=== PATIENT | female | born 1945 | race Caucasian/White ===

== ENCOUNTER 2022-04-04 20:01 | Observation (INO) | payer OTHER, SELFPAY ==
[2022-04-04 20:16] VITALS: BP 182/95; PULSE 90; RESP 32; TEMP 37.8; O2SAT 92; BMI 74.7
--- NOTE | 2022-04-04 20:23 | ED_ITS ---
HPI - General Adult General Time Seen by Provider: 20:23 <Zoe Menard MD - Last Filed: 04/05/22 00:05> Date Seen: 04/04/22 <Zoe Menard MD - Last Filed: 04/05/22 00:05> Chief complaint: Shortness of Breath/Dyspnea <Zoe Menard MD - Last Filed: 04/05/22 00:05> Stated complaint: CHILLS/SHAKES,TROUBLE BREATHING <Zoe Menard MD - Last Filed: 04/05/22 00:05> Time Seen by Provider: 04/04/22 20:02 <Zoe Menard MD - Last Filed: 04/05/22 00:05> Source: patient and RN notes reviewed <Zoe Menard MD - Last Filed: 04/05/22 00:05> Mode of arrival: ambulatory <Zoe Menard MD - Last Filed: 04/05/22 00:05> Limitations: no limitations <Zoe Menard MD - Last Filed: 04/05/22 00:05> History of Present Illness HPI narrative: Pamela is a 76-year-old female coming in with shortness of breath chills and shaking tonight. She was placed on Macrobid on the for UTI in clinic. She has been taking it. She just had very slight dysuria at times. That is gone away. She feels like her waist band is tight and maybe some abdominal pain. She was hungry for dinner but then when it was made she had no appetite for it. There is no nausea or vomiting. No diarrhea. She is noting no urinary symptoms. She is feeling short of breath but no chest pain, no cough or cold symptoms. She is wondering about having some oxygen. She has never been a smoker, denies any prior lung history. She is not having any chest pain or palpitations. Denies any headache. No sore throat, no nasal congestion. She is not vaccinated for COVID, has been going to the grocery store. O2 sats are 93% on room air when I am in with her. Given she has no lung history I think it is fine to have her try 1 L nasal cannula oxygen and see if it helps or symptomatically. Looking in our prior records, see she had COVID in June of 2020. She has seen ENT for ceruminosis. I really do not find anything further in regards to her in our records. <Zoe Menard MD - Last Filed: 04/05/22 00:05> Related Data Home medications: Home Medications Medication Instructions Recorded Confirmed carvedilol 6.25 mg tablet mg 04/04/22 famotidine 20 mg tablet mg 04/04/22 lorazepam 0.5 mg tablet mg 04/04/22 losartan 25 mg tablet mg 04/04/22 nitrofurantoin 04/04/22 monohydrate/macrocrystals 100 mg capsule <Zoe Menard MD - Last Filed: 04/05/22 00:05> Allergies/adverse reactions: Allergies Allergy/AdvReac Type Severity Reaction Status Date / Time No Known Drug Allergies Allergy Verified 04/04/22 20:20 <Zoe Menard MD - Last Filed: 04/05/22 00:05> Review of Systems Status of ROS: Reports: 10 or more systems reviewed and unremarkable except as noted in History and below <Zoe Menard MD - Last Filed: 04/05/22 00:05> [facility] Social History: Social History Smoking Status: Never smoker How often do you have a drink containing alcohol: never AUDIT-C Alcohol total score: 0 Non-prescribed substance use: denies use <Zoe Menard MD - Last Filed: 04/05/22 00:05> Exam Const: Vital Signs, click to edit/add: Vital Signs - 24 hr 04/04/22 20:16 04/04/22 21:03 04/05/22 00:30 Temperature 100.0 F H 98.0 F Pulse Rate [Left P ulse Oximeter] 90 77 Respiratory Rate 32 H 16 Blood Pressure [Ri ght Upper Arm] 182/95 H 153/77 H Pulse Oximetry 92 94 93 Oxygen Delivery Me thod Room Air Nasal Cannula Room Air <Zoe Menard MD - Last Filed: 04/05/22 00:05> Vital Signs, click to edit/add: Vital Signs - 24 hr 04/04/22 20:16 04/04/22 21:03 04/05/22 00:30 Temperature 100.0 F H 98.0 F Pulse Rate [Left P ulse Oximeter] 90 77 Respiratory Rate 32 H 16 Blood Pressure [Ri ght Upper Arm] 182/95 H 153/77 H Pulse Oximetry 92 94 93 Oxygen Delivery Me thod Room Air Nasal Cannula Room Air <Mikie Cardona MD - Last Filed: 04/05/22 04:30> Documenting provider has reviewed patient's vital signs: yes <Zoe Menard MD - Last Filed: 04/05/22 00:05> Common normals: no apparent distress, oriented x3, no limitations, healthy appearing, alert and well nourished <Zoe Menard MD - Last Filed: 04/05/22 00:05> General appearance: cooperative, comfortable and well kempt <Zoe Menard MD - Last Filed: 04/05/22 00:05> HENMT: Common normals: normocephalic, head/scalp atraumatic, external nose normal, nasal mucous membranes and turbinates normal, moist oral mucous membranes and oropharynx normal <Zoe Menard MD - Last Filed: 04/05/22 00:05> Head and scalp: normocephalic and atraumatic <Zoe Menard MD - Last Filed: 04/05/22 00:05> Nose: external nose normal and nasal mucous membranes and turbinates normal <Zoe Menard MD - Last Filed: 04/05/22 00:05> Eye: Common normals: PERRL, EOMs intact bilaterally, conjunctivae normal and no scleral icterus <Zoe Menard MD - Last Filed: 04/05/22 00:05> Conjunctiva: conjunctiva(e) normal <Zoe Menard MD - Last Filed: 04/05/22 00:05> Pupil: PERRL <Zoe Menard MD - Last Filed: 04/05/22 00:05> Neck & C-Spine: Common normals: full ROM, no lymphadenopathy, supple, no meningeal signs, no JVD and thyroid normal <Zoe Menard MD - Last Filed: 04/05/22 00:05> Thyroid: thyroid normal <Zoe Menard MD - Last Filed: 04/05/22 00:05> Resp: Common normals: normal respiratory effort, no retractions, no use of accessory muscles and clear to auscultation bilaterally <oZe Shaw MD - Last Filed: 04/05/22 00:05> Auscultation: clear to auscultation bilaterally <Zoe Menard MD - Last Filed: 04/05/22 00:05> Cardio: Common normals: no JVD, regular rate, regular rhythm, S1 normal heart sound, S2 normal heart sound, no gallops, no clicks and no murmurs <Zoe Menard MD - Last Filed: 04/05/22 00:05> Rate: regular rate <Zoe Menard MD - Last Filed: 04/05/22 00:05> Rhythm: regular rhythm <Zoe Menard MD - Last Filed: 04/05/22 00:05> Heart sounds: S1 normal and S2 normal <Zoe Menard MD - Last Filed: 04/05/22 00:05> GI: Common normals: Normal to inspection, nondistended, normoactive bowel sounds present, soft to palpation, non-tender (I have palpated through her abdomen many times, really she has no tendernes), no hepatosplenomegaly, no masses and no bruits <Zoe Menard MD - Last Filed: 04/05/22 00:05> Palpation: soft and no hepatosplenomegaly <Zoe Menard MD - Last Filed: 04/05/22 00:05> Extremity: Common normals: normal to inspection, full ROM, normal capillary refill, no joint enlargement, no clubbing, cyanosis or edema, no calf tenderness and no pedal edema <Zoe Menard MD - Last Filed: 04/05/22 00:05> Neuro: Common normals: oriented x3, CN's II-XII intact bilaterally, moves all extremities, no focal motor deficits and no sensory deficits noted <Zoe Menard MD - Last Filed: 04/05/22 00:05> Sensorium/orientation: alert <Zoe Menard MD - Last Filed: 04/05/22 00:05> Meningeal signs: no meningeal signs <Zoe Menard MD - Last Filed: 04/05/22 00:05> Psych: Appearance: well kempt <Zoe Menard MD - Last Filed: 04/05/22 00:05> Course Course Hospital Course: Her dyspnea could be from respiratory illness, secondary to another infectious etiology happening. She really has no abdominal pain on palpation. Will have her on pulse oximetry, cardiac monitoring. Do a full complement of labs. Will certainly be checking her for COVID. We have also we collected urine on her and I will order urine culture on this as well. It is possible that her UTI is incompletely treated and has become bacteremic. Her blood pressure would not support a diagnosis of sepsis at this point. Will watch her closely and guide therapy accordingly. I am going to give her some acetaminophen for her temperature. <Zoe Menard MD - Last Filed: 04/05/22 00:05> Reevaluation(s) Reevaluation #1: It took over 90 minutes for patient's labs to be drawn. Thus, quite a bit of delay in getting results back. Her white count is elevated. Her EKG shows left bundle branch block but she states she knows that she has this. She had breast cancer and had complications with chemotherapy. She states something happened with her heart which I presume is cardiomyopathy. Her design printing machine set up operator stage she never had congestive heart failure but it was a pump problem. It is improved now per her report. We reviewed her chest x-ray does look normal. Her D-dimer is just mildly elevated but with the symptom of shortness of breath I do feel it is prudent that we proceed with chest CT PE protocol. Given that she has a fever, recent UTI and is experiencing complaint of abdominal pain but nontender on examination, am going to proceed with abdomen and pelvis. Patient really does want to try to go home. We are going to need to see what her other labs are showing such as a procalcitonin and troponin. <Zoe Menard MD - Last Filed: 04/05/22 00:05> Time: 23:22 <Zoe Menard MD - Last Filed: 04/05/22 00:05> Reevaluation #2: Reviewed with patient that her troponin is just very mildly elevated. It is at 0.06. I have no baseline for her. She is going to need a repeat 3 hour. We will see what the chest CT PE protocol on the abdomen pelvis are showing os. She has been drinking here, blood pressures have actually been elevated and thus have not ordered IV fluids for her. she still states that she wants to go home, says that she has a design printing machine set up operator that she had doors and follow up outpatient. I have reviewed with her that if her heart enzyme is elevated, I can guarantee her design printing machine set up operator will want her to be further evaluated and likely inpatient. Her design printing machine set up operator is through [facility] Nunez and her name is Dr. Siddiqui. <Zoe Menard MD - Last Filed: 04/05/22 00:05> Time: 23:30 <Zoe Menard MD - Last Filed: 04/05/22 00:05> Time: 00:06 <Mikie Cardona MD - Last Filed: 04/05/22 04:30> Additional Reevaluation(s): Patient was signed out to Dr. Brendan CONNOR, please see Dr. Delilah CONNOR for HPI and physical exam. At this time awaiting on urinalysis results, second troponin and imaging results and then doing final disposition. 1:30 AM: patient was updated on her imaging results, per Dr. Pritchett, preliminary read showed CT chest no acute cardiopulmonary process, CT abdomen pelvis showed no acute intra-abdominal process, 2nd troponin was mildly elevated 0.11, patient remains asymptomatic, she will be given 1 g ceftriaxone for her findings and urinalysis. Urine culture pending. Plan would be to admit for observation and monitoring serial troponins. Plan to call hospitalist on-call. 2:00 AM: spoke with [facility] Dr. Ordaz, recommended admission for observation and monitoring serial troponins, he accepts care of the patient to a med surgery bed, patient and family were in agreement this plan. All questions answered. 4:30 AM: 3rd troponin value was unchanged at 0.11, med surgery floor was updated. <Mikie Cardona MD - Last Filed: 04/05/22 04:30> Vital Signs Vital signs: Initial Vital Signs Temperature 100.0 F H 04/04/22 20:16 Temperature Source Temporal Artery Scan 04/04/22 20:16 Pulse Rate 90 04/04/22 20:16 Respiratory Rate 32 H 04/04/22 20:16 Blood Pressure 182/95 H 04/04/22 20:16 Blood Pressure Mean 124 04/04/22 20:16 Blood Pressure Position Supine 04/04/22 20:16 Pulse Oximetry 92 04/04/22 20:16 Oxygen Delivery Method 04/04/22 20:16 Vital Signs Temperature 100.0 F H 04/04/22 20:16 Pulse Rate 90 04/04/22 20:16 Respiratory Rate 32 H 04/04/22 20:16 Blood Pressure 182/95 H 04/04/22 20:16 Pulse Oximetry 92 04/04/22 20:16 Oxygen Delivery Method 04/04/22 20:16 Temperature 98.0 F 04/05/22 00:30 Pulse Rate 77 04/05/22 00:30 Respiratory Rate 16 04/05/22 00:30 Blood Pressure 153/77 H 04/05/22 00:30 Pulse Oximetry 93 04/05/22 00:30 Oxygen Delivery Method 04/05/22 00:30 <Zoe Menard MD - Last Filed: 04/05/22 00:05> Initial Vital Signs Temperature 100.0 F H 04/04/22 20:16 Temperature Source Temporal Artery Scan 04/04/22 20:16 Pulse Rate 90 04/04/22 20:16 Respiratory Rate 32 H 04/04/22 20:16 Blood Pressure 182/95 H 04/04/22 20:16 Blood Pressure Mean 124 04/04/22 20:16 Blood Pressure Position Supine 04/04/22 20:16 Pulse Oximetry 92 04/04/22 20:16 Oxygen Delivery Method 04/04/22 20:16 Vital Signs Temperature 100.0 F H 04/04/22 20:16 Pulse Rate 90 04/04/22 20:16 Respiratory Rate 32 H 04/04/22 20:16 Blood Pressure 182/95 H 04/04/22 20:16 Pulse Oximetry 92 04/04/22 20:16 Oxygen Delivery Method 04/04/22 20:16 Temperature 98.0 F 04/05/22 00:30 Pulse Rate 77 04/05/22 00:30 Respiratory Rate 16 04/05/22 00:30 Blood Pressure 153/77 H 04/05/22 00:30 Pulse Oximetry 93 04/05/22 00:30 Oxygen Delivery Method 04/05/22 00:30 <Mikie Cardona MD - Last Filed: 04/05/22 04:30> Medical Decision Making Lab Data Lab results reviewed: Yes I reviewed the patient's lab results <Zoe Menard MD - Last Filed: 04/05/22 00:05> Labs: Lab Results 04/04/22 04/04/22 04/04/22 Range/Units 20:30 21:30 21:30 WBC 13.93 H (4.50-11.00) K/uL RBC 5.07 (4.00-5.20) m/uL Hgb 16.9 H (12.0-16.0) gm/dL Hct 48.5 (33.0-51.0) % MCV 96 (80-100) fL MCH 33 (26-34) pg MCHC 35 (32-36) gm/dL RDW Coeff of Oswaldo 11.2 L (11.5-15.5) % Plt Count 216 (140-440) K/uL Neut % (Auto) 90.4 H (42.0-72.0) % Lymph % (Auto) 4.6 L (20-44) % Arroyo % (Auto) 3.9 (0.0-11.0) % Eos % (Auto) 0.8 (0.0-7.0) % Baso % (Auto) 0.1 (0.0-3.0) % Neut # (Auto) 12.60 H (1.7-7.0) K/uL Lymph # (Auto) 0.60 L (0.90-2.90) K/uL Arroyo # (Auto) 0.50 (0.00-0.90) K/UL Eos # (Auto) 0.10 (0.00-0.50) K/uL Baso # (Auto) 0.00 (0.00-0.30) K/uL Abs Immat Gran (auto) 0.03 (0.00-0.30) K/uL ESR 4 (2-20) mm/hr D-Dimer Quant (PE/DVT) (0.00-0.50) ug/ml VBG pH (7.32-7.43) VBG pCO2 (40-50) mmHG VBG pO2 (25-47) mmHG VBG HCO3 (21-28) mmol/L Sodium (135-149) mmol/L Potassium (3.6-5.1) mmol/L Chloride (96-114) mmol/L Carbon Dioxide (20-32) mmol/L BUN (7-30) mg/dL Creatinine (0.5-1.5) mg/dL Estimated Creat Clear Estimated GFR ml/min Glucose (60-115) mg/dL Lactate (0.5-1.9) mmol/L Calcium (8.4-10.6) mg/dL Total Bilirubin (0.1-1.5) mg/dL AST (12-35) U/L ALT (4-35) U/L Alkaline Phosphatase (40-150) U/L Troponin I (0.01-0.04) ng/mL C-Reactive Protein (0.5-1.0) mg/dL Total Protein (6.0-8.3) g/dL Albumin (3.3-5.0) g/dL Procalcitonin (<0.50) ng/mL Urine Color Yellow (Yellow) Urine Appearance Clear (Clear) Urine pH 7.0 (5.0-8.5) Ur Specific Curlew 1.020 (1.000-1.030) Urine Protein Negative (Negative) Urine Glucose (UA) Negative (Negative) Urine Ketones Negative (Negative) Urine Blood 1+ A (Negative) Urine Nitrite Negative (Negative) Urine Bilirubin Negative (Negative) Urine Urobilinogen 0.2 (0.2-1.0) Ur Leukocyte Esterase 3+ A (Negative) Urine RBC 2-5 A (0-2) Urine WBC 10-25 A (0-5) Urine WBC Clumps None (None) Ur Squamous Epith Cells Few (None-Few) Amorphous Sediment Few A (None) Urine Bacteria Few A (None) SARS-CoV-2 (PCR) (Negative) 04/04/22 04/04/22 04/04/22 Range/Units 21:30 21:30 21:30 WBC (4.50-11.00) K/uL RBC (4.00-5.20) m/uL Hgb (12.0-16.0) gm/dL Hct (33.0-51.0) % MCV (80-100) fL MCH (26-34) pg MCHC (32-36) gm/dL RDW Coeff of Oswaldo (11.5-15.5) % Plt Count (140-440) K/uL Neut % (Auto) (42.0-72.0) % Lymph % (Auto) (20-44) % Arroyo % (Auto) (0.0-11.0) % Eos % (Auto) (0.0-7.0) % Baso % (Auto) (0.0-3.0) % Neut # (Auto) (1.7-7.0) K/uL Lymph # (Auto) (0.90-2.90) K/uL Arroyo # (Auto) (0.00-0.90) K/UL Eos # (Auto) (0.00-0.50) K/uL Baso # (Auto) (0.00-0.30) K/uL Abs Immat Gran (auto) (0.00-0.30) K/uL ESR (2-20) mm/hr D-Dimer Quant (PE/DVT) 0.90 H (0.00-0.50) ug/ml VBG pH (7.32-7.43) VBG pCO2 (40-50) mmHG VBG pO2 (25-47) mmHG VBG HCO3 (21-28) mmol/L Sodium 136 (135-149) mmol/L Potassium 4.2 (3.6-5.1) mmol/L Chloride 99 (96-114) mmol/L Carbon Dioxide 25 (20-32) mmol/L BUN 13 (7-30) mg/dL Creatinine 0.7 (0.5-1.5) mg/dL Estimated Creat Clear 43.40 Estimated GFR 88 ml/min Glucose 137 H (60-115) mg/dL Lactate 2.2 H (0.5-1.9) mmol/L Calcium 9.2 (8.4-10.6) mg/dL Total Bilirubin 0.8 (0.1-1.5) mg/dL AST 33 (12-35) U/L ALT 25 (4-35) U/L Alkaline Phosphatase 67 (40-150) U/L Troponin I 0.06 H* (0.01-0.04) ng/mL C-Reactive Protein 1.1 H (0.5-1.0) mg/dL Total Protein 7.8 (6.0-8.3) g/dL Albumin 4.6 (3.3-5.0) g/dL Procalcitonin 0.10 (<0.50) ng/mL Urine Color (Yellow) Urine Appearance (Clear) Urine pH (5.0-8.5) Ur Specific Curlew (1.000-1.030) Urine Protein (Negative) Urine Glucose (UA) (Negative) Urine Ketones (Negative) Urine Blood (Negative) Urine Nitrite (Negative) Urine Bilirubin (Negative) Urine Urobilinogen (0.2-1.0) Ur Leukocyte Esterase (Negative) Urine RBC (0-2) Urine WBC (0-5) Urine WBC Clumps (None) Ur Squamous Epith Cells (None-Few) Amorphous Sediment (None) Urine Bacteria (None) SARS-CoV-2 (PCR) (Negative) 04/04/22 04/04/22 04/05/22 Range/Units 21:30 21:35 00:25 WBC (4.50-11.00) K/uL RBC (4.00-5.20) m/uL Hgb (12.0-16.0) gm/dL Hct (33.0-51.0) % MCV (80-100) fL MCH (26-34) pg MCHC (32-36) gm/dL RDW Coeff of Oswaldo (11.5-15.5) % Plt Count (140-440) K/uL Neut % (Auto) (42.0-72.0) % Lymph % (Auto) (20-44) % Arroyo % (Auto) (0.0-11.0) % Eos % (Auto) (0.0-7.0) % Baso % (Auto) (0.0-3.0) % Neut # (Auto) (1.7-7.0) K/uL Lymph # (Auto) (0.90-2.90) K/uL Arroyo # (Auto) (0.00-0.90) K/UL Eos # (Auto) (0.00-0.50) K/uL Baso # (Auto) (0.00-0.30) K/uL Abs Immat Gran (auto) (0.00-0.30) K/uL ESR (2-20) mm/hr D-Dimer Quant (PE/DVT) (0.00-0.50) ug/ml VBG pH 7.406 (7.32-7.43) VBG pCO2 44 (40-50) mmHG VBG pO2 33.4 (25-47) mmHG VBG HCO3 28 (21-28) mmol/L Sodium (135-149) mmol/L Potassium (3.6-5.1) mmol/L Chloride (96-114) mmol/L Carbon Dioxide (20-32) mmol/L BUN (7-30) mg/dL Creatinine (0.5-1.5) mg/dL Estimated Creat Clear Estimated GFR ml/min Glucose (60-115) mg/dL Lactate (0.5-1.9) mmol/L Calcium (8.4-10.6) mg/dL Total Bilirubin (0.1-1.5) mg/dL AST (12-35) U/L ALT (4-35) U/L Alkaline Phosphatase (40-150) U/L Troponin I 0.11 H* (0.01-0.04) ng/mL C-Reactive Protein (0.5-1.0) mg/dL Total Protein (6.0-8.3) g/dL Albumin (3.3-5.0) g/dL Procalcitonin (<0.50) ng/mL Urine Color (Yellow) Urine Appearance (Clear) Urine pH (5.0-8.5) Ur Specific Curlew (1.000-1.030) Urine Protein (Negative) Urine Glucose (UA) (Negative) Urine Ketones (Negative) Urine Blood (Negative) Urine Nitrite (Negative) Urine Bilirubin (Negative) Urine Urobilinogen (0.2-1.0) Ur Leukocyte Esterase (Negative) Urine RBC (0-2) Urine WBC (0-5) Urine WBC Clumps (None) Ur Squamous Epith Cells (None-Few) Amorphous Sediment (None) Urine Bacteria (None) SARS-CoV-2 (PCR) Negative SARS-CoV-2 (Negative) <Zoe Menard MD - Last Filed: 04/05/22 00:05> Lab Results 04/04/22 04/04/22 04/04/22 Range/Units 20:30 21:30 21:30 WBC 13.93 H (4.50-11.00) K/uL RBC 5.07 (4.00-5.20) m/uL Hgb 16.9 H (12.0-16.0) gm/dL Hct 48.5 (33.0-51.0) % MCV 96 (80-100) fL MCH 33 (26-34) pg MCHC 35 (32-36) gm/dL RDW Coeff of Oswaldo 11.2 L (11.5-15.5) % Plt Count 216 (140-440) K/uL Neut % (Auto) 90.4 H (42.0-72.0) % Lymph % (Auto) 4.6 L (20-44) % Arroyo % (Auto) 3.9 (0.0-11.0) % Eos % (Auto) 0.8 (0.0-7.0) % Baso % (Auto) 0.1 (0.0-3.0) % Neut # (Auto) 12.60 H (1.7-7.0) K/uL Lymph # (Auto) 0.60 L (0.90-2.90) K/uL Arroyo # (Auto) 0.50 (0.00-0.90) K/UL Eos # (Auto) 0.10 (0.00-0.50) K/uL Baso # (Auto) 0.00 (0.00-0.30) K/uL Abs Immat Gran (auto) 0.03 (0.00-0.30) K/uL ESR 4 (2-20) mm/hr D-Dimer Quant (PE/DVT) (0.00-0.50) ug/ml VBG pH (7.32-7.43) VBG pCO2 (40-50) mmHG VBG pO2 (25-47) mmHG VBG HCO3 (21-28) mmol/L Sodium (135-149) mmol/L Potassium (3.6-5.1) mmol/L Chloride (96-114) mmol/L Carbon Dioxide (20-32) mmol/L BUN (7-30) mg/dL Creatinine (0.5-1.5) mg/dL Estimated Creat Clear Estimated GFR ml/min Glucose (60-115) mg/dL Lactate (0.5-1.9) mmol/L Calcium (8.4-10.6) mg/dL Total Bilirubin (0.1-1.5) mg/dL AST (12-35) U/L ALT (4-35) U/L Alkaline Phosphatase (40-150) U/L Troponin I (0.01-0.04) ng/mL C-Reactive Protein (0.5-1.0) mg/dL Total Protein (6.0-8.3) g/dL Albumin (3.3-5.0) g/dL Procalcitonin (<0.50) ng/mL Urine Color Yellow (Yellow) Urine Appearance Clear (Clear) Urine pH 7.0 (5.0-8.5) Ur Specific Curlew 1.020 (1.000-1.030) Urine Protein Negative (Negative) Urine Glucose (UA) Negative (Negative) Urine Ketones Negative (Negative) Urine Blood 1+ A (Negative) Urine Nitrite Negative (Negative) Urine Bilirubin Negative (Negative) Urine Urobilinogen 0.2 (0.2-1.0) Ur Leukocyte Esterase 3+ A (Negative) Urine RBC 2-5 A (0-2) Urine WBC 10-25 A (0-5) Urine WBC Clumps None (None) Ur Squamous Epith Cells Few (None-Few) Amorphous Sediment Few A (None) Urine Bacteria Few A (None) SARS-CoV-2 (PCR) (Negative) 04/04/22 04/04/22 04/04/22 Range/Units 21:30 21:30 21:30 WBC (4.50-11.00) K/uL RBC (4.00-5.20) m/uL Hgb (12.0-16.0) gm/dL Hct (33.0-51.0) % MCV (80-100) fL MCH (26-34) pg MCHC (32-36) gm/dL RDW Coeff of Oswaldo (11.5-15.5) % Plt Count (140-440) K/uL Neut % (Auto) (42.0-72.0) % Lymph % (Auto) (20-44) % Arroyo % (Auto) (0.0-11.0) % Eos % (Auto) (0.0-7.0) % Baso % (Auto) (0.0-3.0) % Neut # (Auto) (1.7-7.0) K/uL Lymph # (Auto) (0.90-2.90) K/uL Arroyo # (Auto) (0.00-0.90) K/UL Eos # (Auto) (0.00-0.50) K/uL Baso # (Auto) (0.00-0.30) K/uL Abs Immat Gran (auto) (0.00-0.30) K/uL ESR (2-20) mm/hr D-Dimer Quant (PE/DVT) 0.90 H (0.00-0.50) ug/ml VBG pH (7.32-7.43) VBG pCO2 (40-50) mmHG VBG pO2 (25-47) mmHG VBG HCO3 (21-28) mmol/L Sodium 136 (135-149) mmol/L Potassium 4.2 (3.6-5.1) mmol/L Chloride 99 (96-114) mmol/L Carbon Dioxide 25 (20-32) mmol/L BUN 13 (7-30) mg/dL Creatinine 0.7 (0.5-1.5) mg/dL Estimated Creat Clear 43.40 Estimated GFR 88 ml/min Glucose 137 H (60-115) mg/dL Lactate 2.2 H (0.5-1.9) mmol/L Calcium 9.2 (8.4-10.6) mg/dL Total Bilirubin 0.8 (0.1-1.5) mg/dL AST 33 (12-35) U/L ALT 25 (4-35) U/L Alkaline Phosphatase 67 (40-150) U/L Troponin I 0.06 H* (0.01-0.04) ng/mL C-Reactive Protein 1.1 H (0.5-1.0) mg/dL Total Protein 7.8 (6.0-8.3) g/dL Albumin 4.6 (3.3-5.0) g/dL Procalcitonin 0.10 (<0.50) ng/mL Urine Color (Yellow) Urine Appearance (Clear) Urine pH (5.0-8.5) Ur Specific Curlew (1.000-1.030) Urine Protein (Negative) Urine Glucose (UA) (Negative) Urine Ketones (Negative) Urine Blood (Negative) Urine Nitrite (Negative) Urine Bilirubin (Negative) Urine Urobilinogen (0.2-1.0) Ur Leukocyte Esterase (Negative) Urine RBC (0-2) Urine WBC (0-5) Urine WBC Clumps (None) Ur Squamous Epith Cells (None-Few) Amorphous Sediment (None) Urine Bacteria (None) SARS-CoV-2 (PCR) (Negative) 04/04/22 04/04/22 04/05/22 Range/Units 21:30 21:35 00:25 WBC (4.50-11.00) K/uL RBC (4.00-5.20) m/uL Hgb (12.0-16.0) gm/dL Hct (33.0-51.0) % MCV (80-100) fL MCH (26-34) pg MCHC (32-36) gm/dL RDW Coeff of Oswaldo (11.5-15.5) % Plt Count (140-440) K/uL Neut % (Auto) (42.0-72.0) % Lymph % (Auto) (20-44) % [place] % (Auto) (0.0-11.0) % Eos % (Auto) (0.0-7.0) % Baso % (Auto) (0.0-3.0) % Neut # (Auto) (1.7-7.0) K/uL Lymph # (Auto) (0.90-2.90) K/uL [place] # (Auto) (0.00-0.90) K/UL Eos # (Auto) (0.00-0.50) K/uL Baso # (Auto) (0.00-0.30) K/uL Abs Immat Gran (auto) (0.00-0.30) K/uL ESR (2-20) mm/hr D-Dimer Quant (PE/DVT) (0.00-0.50) ug/ml VBG pH 7.406 (7.32-7.43) VBG pCO2 44 (40-50) mmHG VBG pO2 33.4 (25-47) mmHG VBG HCO3 28 (21-28) mmol/L Sodium (135-149) mmol/L Potassium (3.6-5.1) mmol/L Chloride (96-114) mmol/L Carbon Dioxide (20-32) mmol/L BUN (7-30) mg/dL Creatinine (0.5-1.5) mg/dL Estimated Creat Clear Estimated GFR ml/min Glucose (60-115) mg/dL Lactate (0.5-1.9) mmol/L Calcium (8.4-10.6) mg/dL Total Bilirubin (0.1-1.5) mg/dL AST (12-35) U/L ALT (4-35) U/L Alkaline Phosphatase (40-150) U/L Troponin I 0.11 H* (0.01-0.04) ng/mL C-Reactive Protein (0.5-1.0) mg/dL Total Protein (6.0-8.3) g/dL Albumin (3.3-5.0) g/dL Procalcitonin (<0.50) ng/mL Urine Color (Yellow) Urine Appearance (Clear) Urine pH (5.0-8.5) Ur Specific [place] (1.000-1.030) Urine Protein (Negative) Urine Glucose (UA) (Negative) Urine Ketones (Negative) Urine Blood (Negative) Urine Nitrite (Negative) Urine Bilirubin (Negative) Urine Urobilinogen (0.2-1.0) Ur Leukocyte Esterase (Negative) Urine RBC (0-2) Urine WBC (0-5) Urine WBC Clumps (None) Ur Squamous Epith Cells (None-Few) Amorphous Sediment (None) Urine Bacteria (None) SARS-CoV-2 (PCR) Negative SARS-CoV-2 (Negative) <Mikie Cardona MD - Last Filed: 04/05/22 04:30> Imaging Data Chest x-ray: Attestation: I have reviewed the pertinent imaging results. <Zoe cooley MD - Last Filed: 04/05/22 00:05> Radiologist's impression: Patient: PAMELA SIM Facility:?[facility] Patient ID:?[id number] Site Patient ID:?[id number] Site :?[id number] Study:?XRay Chest PORTABLE-04/04/2022 8:55:33 PM Ordering Physician:Niels Enriquez Final Report: INDICATION: Shortness of breath. TECHNIQUE: Chest 1 view. COMPARISON: None. FINDINGS: Cardiovascular and mediastinum: Heart size and vasculature are normal in caliber and appearance. Lungs and pleural spaces: Lungs are clear. No sign of infiltrate or mass. No sign of pleural effusion. No pneumothorax. Bones and soft tissues: No significant findings. IMPRESSION: Unremarkable chest. Dictated by Leonardo Hyde MD @ 04/04/2022 9:36:48 PM (Electronic Signature) <Zoe Menard MD - Last Filed: 04/05/22 00:05> ECG Data Attestation: I personally reviewed and interpreted this ECG as follows: (Left bundle branch block with sinus rhythm at 84 beats per minute.) <Zoe Menard MD - Last Filed: 04/05/22 00:05> Prior ECG tracings: not available for review (Patient is aware that she has left bundle branch block per report) <Zoe Menard MD - Last Filed: 04/05/22 00:05> Critical Care Time Critical Care Time Critical Care Time: No <Zoe Menard MD - Last Filed: 04/05/22 00:05> Discharge Plan Discharge Clinical Impression: Dyspnea, History of urinary tract infection, Elevated troponin level <Zoe Menard MD - Last Filed: 04/05/22 00:05> Patient Disposition: Admitted As Inpatient <Zoe Menard MD - Last Filed: 04/05/22 00:05> Condition: Improved <Zoe Menard MD - Last Filed: 04/05/22 00:05>
--- NOTE | 2022-04-04 20:32 | CRLHL7_ITS ---
For Patients: As a result of the Century Cures Act, medical imaging exams and procedure reports are released immediately into your electronic medical record. You may view this report before your referring provider. If you have questions, please contact your health care provider. INDICATION: Shortness of breath. TECHNIQUE: Chest 1 view. COMPARISON: None. FINDINGS: Cardiovascular and mediastinum: Heart size and vasculature are normal in caliber and appearance. Lungs and pleural spaces: Lungs are clear. No sign of infiltrate or mass. No sign of pleural effusion. No pneumothorax. Bones and soft tissues: No significant findings. IMPRESSION: Unremarkable chest. Dictated by Leonardo Hyde MD @ 04/04/2022 9:36:48 PM (Electronically Signed)
[2022-04-04 20:38] LABS: Appearance Urine Clear (Clear); Bilirubin Urine Negative (Negative); Blood Urine 1+ (Negative); Color Urine Yellow (Yellow); Glucose Urine Negative (Negative); Ketones Urine Negative (Negative); Leukocyte Esterase Urine 3+ (Negative); Nitrite Urine Negative (Negative); Protein Urine Negative (Negative); Urobilinogen Urine 0.2 (0.2-1.0)
[2022-04-04 21:03] VITALS: O2SAT 94
[2022-04-04 21:13] LABS: Amorphous Sediment Urine Few; Bacteria Urine Few; Squamous Epithelial Cell Urine Few (None-Few)
[2022-04-04] MEDS: ACETAMINOPHEN 500 MG TABLET 1000 MG PO (21:32)
[2022-04-04 21:49] LABS: HCO3 VBG 28 mmol/L (21-28); PCO2 VBG 44 mmHG (40-50); PO2 VBG 33.4 mmHG (25-47); pH VBG 7.406 (7.32-7.43)
[2022-04-04 21:50] LABS: Basophils Percent Auto 0.1 % (0.0-3.0); Eosinophils Percent Auto 0.8 % (0.0-7.0); Hematocrit 48.5 % (33.0-51.0); Hemoglobin* 16.9 gm/dL (12.0-16.0); Immature Granulocytes Abs Auto 0.03 K/uL (0.00-0.30); Lymphocytes Percent Auto 4.6 % (20-44); Mean Corpuscular HGB Conc 35 gm/dL (32-36); Mean Corpuscular Hemoglobin 33 pg (26-34); Mean Corpuscular Volume 96 fL (80-100); Monocytes Percent Auto 3.9 % (0.0-11.0); Neutrophils Percent Auto 90.4 % (42.0-72.0); Platelet Count* 216 K/uL (140-440); RDW Coefficient of Variation % 11.2 % (11.5-15.5); Red Blood Count 5.07 m/uL (4.00-5.20); White Blood Count* 13.93 K/uL (4.50-11.00)
[2022-04-04 22:09] LABS: Lactate* 2.2 mmol/L (0.5-1.9)
[2022-04-04 22:10] LABS: Slide Review Reflex No
[2022-04-04 22:43] LABS: Albumin* 4.6 g/dL (3.3-5.0); Chloride* 99 mmol/L (96-114); Sodium* 136 mmol/L (135-149)
[2022-04-04 22:44] LABS: Potassium* 4.2 mmol/L (3.6-5.1)
[2022-04-04 22:46] LABS: Aspartate Amino Transferase* 33 U/L (12-35); Bilirubin Total* 0.8 mg/dL (0.1-1.5); Carbon Dioxide* 25 mmol/L (20-32); Creatinine* 0.7 mg/dL (0.5-1.5); Estimated Glomerular Filt Rate 88 ml/min; Total Protein* 7.8 g/dL (6.0-8.3)
[2022-04-04 22:47] LABS: Alanine Aminotransferase* 25 U/L (4-35); Alkaline Phosphatase* 67 U/L (40-150); Blood Urea Nitrogen* 13 mg/dL (7-30); Calcium* 9.2 mg/dL (8.4-10.6); Glucose* 137 mg/dL (60-115)
[2022-04-04 22:49] LABS: C Reactive Protein* 1.1 mg/dL (0.5-1.0)
[2022-04-04 22:51] LABS: Erythrocyte SedimentationRate* 4 mm/hr (2-20)
[2022-04-04 23:01] LABS: Troponin I* 0.06 ng/mL (0.01-0.04)
[2022-04-04 23:01] LABS: SARS PCR* Negative SARS-CoV-2 (Negative)
--- NOTE | 2022-04-04 23:02 | CRLHL7_ITS ---
For Patients: As a result of the 21st Century Cures Act, medical imaging exams and procedure reports are released immediately into your electronic medical record. You may view this report before your referring provider. If you have questions, please contact your health care provider. Indication: SOB. elevated D Dimer, fever, abd pain and constipation Technique: Postcontrast CT chest, abdomen and pelvis. 95 cc Isovue 370 intravenous contrast. PE protocol for the chest. Please note that all CT scans at this facility use dose modulation, iterative reconstruction, and/or weight-based dosing when appropriate to reduce radiation dose to as low as reasonably achievable. Comparison: None Findings: In the chest, there is no pulmonary embolism in the main, lobar or segmental pulmonary arteries. No mediastinal, hilar or axillary adenopathy. Bilateral breast implants are present. Vascular calcifications in the aorta noted. No pericardial or pleural effusion. There are mild areas of atelectasis within the left lower lobe, lingula and right lower lobe along with the right middle lobe. No consolidative infiltrate or pneumothorax. No suspicious pulmonary nodule. There is some vascular mixing artifact adjacent to the left thyroid lobe without discernible nodule. In the abdomen, there is no intrahepatic mass. The gallbladder is absent. No stigmata of cirrhosis. The spleen is normal. Normal adrenal glands. Kidneys are normal. Incidental right extrarenal pelvis. Vascular calcifications. No retroperitoneal or mesenteric adenopathy. Pancreas is normal. 9 centimeter hiatal hernia. There is also a left paramidline abdominal wall hernia contains fat just beneath the umbilicus measuring 3.3 cm. No bowel involvement. In the pelvis, the bladder is normal. Postoperative changes of hysterectomy noted, residual endocervical tissue appears to be present which may signify supracervical hysterectomy technique. No adnexal mass. Sigmoid diverticulosis. No acute inflammatory change. No bowel obstruction or free air. Degenerative changes are present. Right proximal femoral fixation hardware. 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 Appendix absent. Impression: No pulmonary embolism. Postop changes cholecystectomy, appendectomy and hysterectomy. There appears to be residual uterine tissue within the endocervical region, likely signifying supracervical type of hysterectomy. No adnexal mass. Left paramidline infraumbilical abdominal wall hernia containing fat measuring 3.3 cm. 9 cm hiatal hernia. Extensive colonic diverticulosis without diverticulitis or bowel obstruction. Please note that all CT scans at this facility use dose modulation, iterative reconstruction, and/or weight-based dosing when appropriate to reduce radiation dose to as low as reasonably achievable. Dictated by Rinku Merlos MD @ 04/05/2022 11:10:33 AM (Electronically Signed)
--- NOTE | 2022-04-04 23:03 | ED.NURSE ---
Critical Lab received: Troponin 0.06, handed to at 2304. New orders received.
--- NOTE | 2022-04-04 23:32 | ED.NURSE ---
pt taken to RAD
[2022-04-05 00:30] VITALS: BP 153/77; PULSE 77; RESP 16; TEMP 36.7; O2SAT 93
[2022-04-05 01:02] LABS: Troponin I* 0.11 ng/mL (0.01-0.04)
--- NOTE | 2022-04-05 02:42 | ED.NURSE ---
pt sometimes on O2, pt puts on and takes off NC. Same with vital monitor equipment.
--- NOTE | 2022-04-05 03:13 | W.PC.EDHO ---
Primary Language: Preferred Language: Orientation Status: [x] Alert & Oriented [] Slight Confusion [] Known Dx Dementia Transfers By: x Assist of 1 [] Assist of 2 [] Lift Active Medications Discontinued Medications Generic Name Dose Route Start Last Admin Trade Name Smitha PRN Reason Stop Dose Admin Acetaminophen 1,000 mg 04/04/22 20:40 04/04/22 21:32 Acetaminophen 500 Mg Tablet PO 04/04/22 20:41 1,000 mg ONCE ONE Administration Description of Symptoms ED Triage Present Problem tx currently for uti. this afternoon developed Description sob and chills. generalized pains and pain at waistband of pants Female History Patient No Pain Pain Intensity [Generalized] 0 Pain Intensity [Generalized] 3 Pain Scale Used [Generalized] Numeric (1 - 10) Pain Scale Used [Generalized] Numeric (1 - 10) Oxygen Administration Pulse Oximetry 93 Pulse Oximetry 94 Pulse Oximetry 92 Oxygen Delivery Method Room Air Oxygen Delivery Method Nasal Cannula Oxygen Delivery Method Room Air Cardiac Monitoring EKG Method 12 Lead
[2022-04-05] MEDS: cefTRIAXone 1 GM in 0.9 % SODIUM CHLORIDE Mini-bag 100 ML IVPB (03:47)
[2022-04-05 04:22] LABS: Troponin I* 0.11 ng/mL (0.01-0.04)
[2022-04-05 05:00] VITALS: RESP 24; O2SAT 91
[2022-04-05 05:02] VITALS: BP 153/77; PULSE 72; RESP 24; TEMP 36.1; O2SAT 93; BMI 35.2
--- NOTE | 2022-04-05 05:32 | P.IMCN_ITS ---
Date of Consult Consult date: 04/05/22 Primary Care Provider: Not a Local Provider Review of Systems Narrative: [facility] Hospitalist eHospitalist was contacted with request of consultation on Pamela Sales. Ms Sales is a 76 year old lady who was prescribed macrobid few days ago for possible cystitis given mild dysuria. pt started taking her antibiotic and her symptoms resolved. while sleeping today, pt woke up with marked shortness of breath, chest tightness that worsened upon trying to lie down. she thinks it's similar to asthma attacks she had when she was younger. she felt cold at home and she checked her temperature at home and it was normal. she denies any abd pain, dysuria, frequency or urgency at this time. Home Medications: see EMR Pertinent Medical History: See EMR Pertinent Social History: See EMR Exam (performed via interactive video with assistance of bedside nurse; Florinda): General: alert, cooperative, no acute distress HEENT: oral mucosa pink and moist without erythema Lungs: clear to auscultation bilaterally without crackle or wheeze CV: regular rate and rhythm without loud murmur rub or gallop Abd: mild tenderness in L flank and LLQ. Ext: no pitting edema noted Skin: no rashes, bruises or lesions. Neuro: alert, oriented x3, no focal deficit. Labs and imaging were reviewed Assessment and Plan: shortness of breath for evaluation hx of cardiomyopathy HTN mildly elevated troponin breast cancer etiology of shortness of breath is not clear at this time. her EKG shows old LBBB (as per the pt). 3 troponins are mldly elevated but not trending. this is not consistent with [place]. according to ED, her prelim CT scan showed no PE, consolidation or congestion. I can't see the images myself will give PPI iv as symptoms could be related to GERD SOB could be related to to pyelonephritis. kidney inflammation could irritate diaphragm but she doesn't appear this sick rarely, macrobid could cause significant resp side effects, including SOB, pneumonitis and fibrosis. normal CT is reassuring might need repeat TTE recent cystitis possibly complicated UTI agree with ceftriaxone. Thank you for including Alvaro Lopez in the patients care. This service is available for further assistance as requested by your care team by calling [phone]. [facility] Medical History (Updated 04/05/22 @ 05:16 by Katy Yancey RN) Acid reflux Surgical History (Updated 04/05/22 @ 05:16 by Katy Yancey RN) History of appendectomy History of cholecystectomy Family History (Updated 04/05/22 @ 05:18 by Katy Yancey RN) Father Cancer Mother DM (diabetes mellitus), type 2 CHF (congestive heart failure) Sister Seizures Social History Highest level of school completed/degree received: high school graduate Smoking Status: Never smoker How often do you have a drink containing alcohol: never AUDIT-C Alcohol total score: 0 Non-prescribed substance use: denies use Caffeine: Yes (coffee) service: No Meds Home Medications and Allergies Home Medications Medication Instructions Recorded Confirmed Type carvedilol 6.25 mg tablet mg 04/04/22 History famotidine 20 mg tablet mg 04/04/22 History lorazepam 0.5 mg tablet mg 04/04/22 History losartan 25 mg tablet mg 04/04/22 History nitrofurantoin 04/04/22 History monohydrate/macrocrystals 100 mg capsule Allergies Allergy/AdvReac Type Severity Reaction Status Date / Time No Known Drug Allergies Allergy Verified 04/04/22 20:20 Exam Const: Vital Signs, click to edit/add: Vital Signs - 24 hr 04/04/22 20:16 04/04/22 21:03 04/05/22 00:30 Temperature 100.0 F H 98.0 F Pulse Rate [Left P ulse Oximeter] 90 77 Pulse Rate [Right Pulse Oximeter] Respiratory Rate 32 H 16 Blood Pressure [Le ft Arm] Blood Pressure [Ri ght Upper Arm] 182/95 H 153/77 H Pulse Oximetry 92 94 93 Oxygen Delivery Me thod Room Air Nasal Cannula Room Air Oxygen Flow Rate 04/05/22 05:02 Temperature 97.0 F L Pulse Rate [Left P ulse Oximeter] Pulse Rate [Right Pulse Oximeter] 72 Respiratory Rate 24 Blood Pressure [Le ft Arm] 153/77 H Blood Pressure [Ri ght Upper Arm] Pulse Oximetry 93 Oxygen Delivery Me thod Nasal Cannula Oxygen Flow Rate 1.0 Labs Labs: Short CBC 04/04/22 Range/Units 21:30 WBC 13.93 H (4.50-11.00) K/uL Hgb 16.9 H (12.0-16.0) gm/dL Hct 48.5 (33.0-51.0) % Plt Count 216 (140-440) K/uL BMP 04/04/22 21:30 Sodium 136 Potassium 4.2 Chloride 99 Carbon Dioxide 25 BUN 13 Creatinine 0.7 Glucose 137 H Calcium 9.2 Cardiac Enzymes 04/04/22 04/05/22 04/05/22 Range/Units 21:30 00:25 03:09 Troponin I 0.06 H* 0.11 H* 0.11 H* (0.01-0.04) ng/mL Liver Function 04/04/22 Range/Units 21:30 Total Bilirubin 0.8 (0.1-1.5) mg/dL AST 33 (12-35) U/L ALT 25 (4-35) U/L Alkaline Phosphatase 67 (40-150) U/L Albumin 4.6 (3.3-5.0) g/dL Urine 04/04/22 Range/Units 20:30 Urine Color Yellow (Yellow) Urine Appearance Clear (Clear) Urine pH 7.0 (5.0-8.5) Ur Specific [place] 1.020 (1.000-1.030) Urine Protein Negative (Negative) Urine Glucose (UA) Negative (Negative)
[2022-04-05] MEDS: PANTOPRAZOLE SODIUM 40 MG INJ IVP (06:12)
[2022-04-05] MEDS: SODIUM CHLORIDE 0.9 % (FLUSH) 10 ML SYRINGE 5 ML IVF (06:12)
--- NOTE | 2022-04-05 06:52 | PC.NURSE ---
Patient admitted to unit at 0400. Pleasant and cooperative. SBA w/cane (brought from home). A&Ox3. SOB at rest and w/exertion. Utilized BSC for urination x2. Tolerated well. 1 Lt O2 to maintain sats >90%. c/o chronic back pain. Ice pack for relief. Afebrile.
[2022-04-05 08:35] LABS: Basophils Percent Auto 0.2 % (0.0-3.0); Eosinophils Percent Auto 1.9 % (0.0-7.0); Hematocrit 46.6 % (33.0-51.0); Hemoglobin* 16.3 gm/dL (12.0-16.0); Immature Granulocytes Abs Auto 0.03 K/uL (0.00-0.30); Lymphocytes Percent Auto 6.9 % (20-44); Mean Corpuscular HGB Conc 35 gm/dL (32-36); Mean Corpuscular Hemoglobin 33 pg (26-34); Mean Corpuscular Volume 96 fL (80-100); Monocytes Percent Auto 5.7 % (0.0-11.0); Neutrophils Percent Auto 85.1 % (42.0-72.0); Platelet Count* 217 K/uL (140-440); RDW Coefficient of Variation % 11.4 % (11.5-15.5); Red Blood Count 4.88 m/uL (4.00-5.20); White Blood Count* 12.36 K/uL (4.50-11.00)
[2022-04-05 08:40] LABS: Slide Review Reflex No
[2022-04-05 08:46] LABS: Albumin* 4.2 g/dL (3.3-5.0); Chloride* 102 mmol/L (96-114)
[2022-04-05 08:47] LABS: Potassium* 3.7 mmol/L (3.6-5.1); Sodium* 137 mmol/L (135-149)
[2022-04-05 08:49] LABS: Alkaline Phosphatase* 57 U/L (40-150); Aspartate Amino Transferase* 24 U/L (12-35); Blood Urea Nitrogen* 10 mg/dL (7-30); Carbon Dioxide* 25 mmol/L (20-32); Creatinine* 0.6 mg/dL (0.5-1.5); Estimated Glomerular Filt Rate 92 ml/min; Total Protein* 7.3 g/dL (6.0-8.3)
[2022-04-05 08:50] LABS: Alanine Aminotransferase* 22 U/L (4-35); Calcium* 8.8 mg/dL (8.4-10.6); Glucose* 109 mg/dL (60-115)
[2022-04-05 09:03] LABS: Troponin I* 0.09 ng/mL (0.01-0.04)
--- NOTE | 2022-04-05 09:03 | P.IMHP_ITS ---
Hospitalist- H&P: HPI History of Present Illness Date Seen: 04/05/22 Chief complaint: CHILLS/SHAKES,TROUBLE BREATHING Narrative: Pamela Sales is a 76 year old female who presented to the ED last night for shortness of breath. Symptoms came on fairly suddenly yesterday - no associated cough or chest pain. No recent travel, no history of blood clots. Had been seen on a virtual visit on Friday, 04/01 and started on Macrobid for a presumed UTI. Had been on this past without complications. Still having some urinary frequency, no dysuria. Urine culture from admission is pending. ED Course and findings: - no PE on chest CT. Incidentally noted: Thyroid calcifications no work and pelvic mass. - mildly elevated troponin. No acute EKG changes. Pamela was admitted by [facility] telehospitalist team overnight for serial troponins. Troponin peaked at 0.11, was 0.09 this morning. When I see Pamela today, she has no complaints and is requesting discharge home. History of essential HTN. Also notes history of chronic constipation. Had a hysterectomy (unsure if BSO was done). No PCP. Primarily sees Dr. Siddiqui of Cardiology for followup. Lives in [place] with . Homemaker, 4 adult children. Never smoker, no ETOH. Review of Systems Status of ROS: Reports: 10 or more systems reviewed and unremarkable except as noted in History and below Narrative: Specifically denies CP. No dyspnea this morning. [facility] Medical History (Updated 04/05/22 @ 09:07 by Stephenie Celestin MD) Acid reflux Essential hypertension Surgical History (Updated 04/05/22 @ 05:16 by Katy Yancey RN) History of appendectomy History of cholecystectomy Family History (Updated 04/05/22 @ 05:18 by Katy Yancey RN) Father Cancer Mother DM (diabetes mellitus), type 2 CHF (congestive heart failure) Sister Seizures Social History Highest level of school completed/degree received: high school graduate Smoking Status: Never smoker How often do you have a drink containing alcohol: never AUDIT-C Alcohol total score: 0 Non-prescribed substance use: denies use Caffeine: Yes (coffee) service: No Meds Home Medications and Allergies Home Medications Medication Instructions Recorded Confirmed Type carvedilol 6.25 mg tablet mg 04/04/22 History famotidine 20 mg tablet mg 04/04/22 History lorazepam 0.5 mg tablet mg 04/04/22 History losartan 25 mg tablet mg 04/04/22 History Allergies Allergy/AdvReac Type Severity Reaction Status Date / Time No Known Drug Allergies Allergy Verified 04/04/22 20:20 Exam Narrative: Exam Narrative: GEN: Alert and oriented, answering questions appropriately her HEENT: Normal external ears, EOMIs bilaterally, no scleral icterus CV: RRR, No concerning murmurs, rubs, or gallops R: LCTA bilaterally without concerning wheezing, rales, or rhonchi. Air movement is adequate Ext: wwp, no concerning edema Skin: No concerning skin lesions or rashes on exposed skin Neuro: Nonfocal Psych: Appropriate Const: Vital Signs, click to edit/add: Vital Signs - 24 hr 04/04/22 20:16 04/04/22 21:03 04/05/22 00:30 Temperature 100.0 F H 98.0 F Pulse Rate [Left P ulse Oximeter] 90 77 Pulse Rate [Right Pulse Oximeter] Respiratory Rate 32 H 16 Blood Pressure [Le ft Arm] Blood Pressure [Ri ght Upper Arm] 182/95 H 153/77 H Pulse Oximetry 92 94 93 Oxygen Delivery Me thod Room Air Nasal Cannula Room Air Oxygen Flow Rate 04/05/22 05:02 04/05/22 05:00 Temperature 97.0 F L Pulse Rate [Left P ulse Oximeter] Pulse Rate [Right Pulse Oximeter] 72 Respiratory Rate 24 24 Blood Pressure [Le ft Arm] 153/77 H Blood Pressure [Ri ght Upper Arm] Pulse Oximetry 93 91 Oxygen Delivery Me thod Nasal Cannula Nasal Cannula Oxygen Flow Rate 1.0 1.0 Hospitalist - H&P: Result Labs Labs: Short CBC 04/04/22 04/05/22 Range/Units 21:30 07:38 WBC 13.93 H 12.36 H (4.50-11.00) K/uL Hgb 16.9 H 16.3 H (12.0-16.0) gm/dL Hct 48.5 46.6 (33.0-51.0) % Plt Count 216 217 (140-440) K/uL BMP 04/04/22 21:30 Sodium 136 Potassium 4.2 Chloride 99 Carbon Dioxide 25 BUN 13 Creatinine 0.7 Glucose 137 H Calcium 9.2 Cardiac Enzymes 04/04/22 04/05/22 04/05/22 Range/Units 21:30 00:25 03:09 Troponin I 0.06 H* 0.11 H* 0.11 H* (0.01-0.04) ng/mL Liver Function 04/04/22 Range/Units 21:30 Total Bilirubin 0.8 (0.1-1.5) mg/dL AST 33 (12-35) U/L ALT 25 (4-35) U/L Alkaline Phosphatase 67 (40-150) U/L Albumin 4.6 (3.3-5.0) g/dL Urine 04/04/22 Range/Units 20:30 Urine Color Yellow (Yellow) Urine Appearance Clear (Clear) Urine pH 7.0 (5.0-8.5) Ur Specific [place] 1.020 (1.000-1.030) Urine Protein Negative (Negative) Urine Glucose (UA) Negative (Negative) Assessment and Plan Assessment and plan (1) Essential hypertension: Status: Acute (2) Dyspnea: Status: Acute (3) History of urinary tract infection: Status: Acute (4) Elevated troponin level: Status: Acute Plan 68-year-old female who presented emergency room with dyspnea, now resolved. She weaned off supplemental oxygen during stay. Pamela had an elevated troponin (peaked at 0.11) without concerning EKG changes or chest pain. We discussed an inpatient echocardiogram; she deferred this as she has a primary airport representative and prefers to follow-up with her as an outpatient, understanding that if her chest pain or dyspnea were to return, she would need to return to the emergency room. We discussed establishing care with a PCP, she is amenable to setting up primary care at the [facility]. Patient requests discharge home this morning, feels back to baseline. She has no needs for PT or OT at this time. Lives independently with her , adult children are close and involved in care regularly. Please note, this serves as both H&P and discharge summary.
--- NOTE | 2022-04-05 09:42 | REH.PT ---
Physical Therapy Evaluation Canceled- Patient seen in room with Dr. Celestin present and patient is preparing to discharge home. Dr Celestin is stating PT is no longer needed as patient is up Ind in room with her cane, back to baseline for mobility.
[2022-04-05 10:14] VITALS: BP 139/69; PULSE 66; RESP 20; TEMP 36.2; O2SAT 91
--- NOTE | 2022-04-05 14:03 | PC.NURSE ---
Patient instructed to take home medications upon discharge - patient in agreement with the plan. Saline lock removed. All forms were discussed and questions were answered. Patient sent with paperwork for follow up with swimming pool attendant. Pt escorted to front entrance via wheelchair and staff.
== END 2022-04-05 11:20 | disposition home or self-care (01) ==
LOC: ED 04-05 03:19 → MEDSURG 04-05 04:25
PROVIDERS: Family Medicine; Admitting Provider Internal Medicine; Emergency Provider Student in an Organized Health Care Education/Training Program; PCP Family Medicine; Visit Provider Internal Medicine
DX: R06.00 Dyspnea, unspecified (principal); R77.8 Other specified abnormalities of plasma proteins; I10 Essential (primary) hypertension; Z87.440 Personal history of urinary (tract) infections; R06.02 Shortness of breath; Z90.49 Acquired absence of other specified parts of digestive tract; N12 Tubulo-interstitial nephritis, not specified as acute or chronic; C50.919 Malignant neoplasm of unspecified site of unspecified female breast
CPT/HCPCS: 36415; 71045; 74177; 80053; 81003; 81015; 82803; 83605; 84145; 84484; 85025; 85379; 85651; 86140; 87040; 87086; 87635; 93005; 96374; 96375; 99283; 99285; G0378; A9270; C9113; J0696; Q9967

== ENCOUNTER 2022-04-17 15:44 | Outpatient (CLI) | payer OTHER, SELFPAY | END 2022-04-17 15:45 | disposition home or self-care (01) | PROVIDERS: PCP Family Medicine; Visit Provider Physician Assistant Medical | DX: N39.0 Urinary tract infection, site not specified (principal); R10.9 Unspecified abdominal pain; Z83.3 Family history of diabetes mellitus; Z13.29 Encounter for screening for other suspected endocrine disorder; R06.00 Dyspnea, unspecified; I10 Essential (primary) hypertension | CPT/HCPCS: 84443; 87086 ==

== ENCOUNTER 2022-04-22 12:51 | Outpatient (CLI) | payer OTHER, SELFPAY ==
--- NOTE | 2022-04-22 13:00 | CRLHL7_ITS ---
For Patients: As a result of the Century Cures Act, medical imaging exams and procedure reports are released immediately into your electronic medical record. You may view this report before your referring provider. If you have questions, please contact your health care provider. INDICATION: Possible nodule COMPARISON: CT 04/04/2022 TECHNIQUE: Zamudio scale and color Doppler images were acquired of the thyroid gland. FINDINGS: The thyroid gland demonstrates normal uniform echogenicity and has a smooth outer contour. The right lobe measures 3.9 x 1.0 x 1.2 cm and the left lobe measures 4.0 x 0.9 x 1.2 cm in size. There are no suspicious masses or nodules. The isthmus measures 2 millimeters. The color Doppler images demonstrate normal vascularity. There is no evidence of cervical lymphadenopathy or parathyroid mass. IMPRESSION: Normal thyroid ultrasound. No thyroid nodule. Dictated by Rinku Merlos MD @ 04/22/2022 1:37:23 PM (Electronically Signed)
== END 2022-04-22 12:52 | disposition home or self-care (01) ==
PROVIDERS: PCP Family Medicine; Visit Provider Physician Assistant Medical
DX: R93.89 Abnormal findings on diagnostic imaging of other specified body structures (principal)
CPT/HCPCS: 76536

== ENCOUNTER 2022-12-03 12:00 | Outpatient (CLI) | payer OTHER, SELFPAY | END 2022-12-03 12:01 | disposition home or self-care (01) | LOC: NFLDREF 12-06 13:05 | PROVIDERS: Visit Provider Registered Nurse | DX: R30.0 Dysuria (principal); N39.0 Urinary tract infection, site not specified | CPT/HCPCS: 87086 ==

== ENCOUNTER 2022-12-04 21:29 | Emergency (ER) | payer OTHER, SELFPAY ==
[2022-12-04 21:43] VITALS: BP 132/68; PULSE 81; RESP 20; TEMP 36.6; O2SAT 91; BMI 34.1
[2022-12-04 21:53] VITALS: PULSE 69; O2SAT 90
--- NOTE | 2022-12-04 21:54 | CRLHL7_ITS ---
For Patients: As a result of the Century Cures Act, medical imaging exams and procedure reports are released immediately into your electronic medical record. You may view this report before your referring provider. If you have questions, please contact your health care provider. INDICATION: Shortness of breath, abdominal pain TECHNIQUE: CT chest was performed with pulmonary angiographic technique. Subsequently, CT abdomen and pelvis with i.v. contrast during the venous phase. Coronal and sagittal reformats were obtained. CONTRAST: 95 mL Isovue 370 COMPARISON: 04/04/2022 FINDINGS: CHEST: Cardiovascular: Cardiomegaly is present with severe left ventricular enlargement. Mild, stable enlargement of the main pulmonary artery is present and measures 3 cm in maximal short axis. No CT identified pulmonary emboli are seen. The pulmonary arteries are unremarkable in appearance. No sign of aneurysm or dissection in the thoracic aorta. Mediastinum: No mass or adenopathy seen. Lung: Both lungs are unremarkable in appearance. Pleura and pericardium: No sign of pleural effusion seen. No significant pericardial effusion is present. Chest wall and axilla: The patient is status post bilateral mastectomy with implant reconstruction. Bone: Mild chronic compression deformities seen in the superior endplate of T12 without interval change. ABDOMEN/PELVIS: Liver: Unremarkable. Spleen: Unremarkable. Pancreas: Unremarkable. Gallbladder: Previous cholecystectomy noted with no significant intra- or extrahepatic biliary ductal dilatation seen. Kidney: And mildly dilated right extrarenal pelvis is present. Adrenal: Unremarkable. Bowel: A moderate, collapsed sliding type gastric hiatal hernia (type IV) is present. Severe diverticulosis of the descending sigmoid colon is seen. Previous appendectomy noted with no significant appendiceal stump identified. Vascular: Unremarkable. Lymph: Unremarkable. Peritoneum: Unremarkable. No pneumoperitoneum is seen. No significant ascites is noted. Pelvis: Evaluation of the pelvic soft tissues, distal ureters and osseous structures are limited by beam hardening artifacts from the right dynamic compression screw. The patient is status post hysterectomy. Soft tissue: Unremarkable. Bone: Grade 1 anterolisthesis of L5-S1 is noted without change. Severe degenerative disc disease is seen from L3-4 through L5-S1. IMPRESSIONS: 1. No CT evidence of pulmonary embolism seen. 2. Mild, stable enlargement of the main pulmonary artery is present and measures 3 cm in maximal short axis. This is likely due to pulmonary hypertension. 3. Cardiomegaly is present with severe left ventricular enlargement. The appearance is similar to prior exam. Dictated by Josh Bentley MD @ 12/04/2022 11:03:48 PM Please note that all CT scans at this facility use dose modulation, iterative reconstruction, and/or weight-based dosing when appropriate to reduce radiation dose to as low as reasonably achievable. Dictated by: Josh Bentley MD @ 12/04/2022 23:04:00 (Electronically Signed)
[2022-12-04 22:10] VITALS: O2SAT 90
[2022-12-04 22:16] LABS: Lactate* 1.3 mmol/L (0.5-1.9)
[2022-12-04 22:17] LABS: Creatinine, Point-of-Care* 0.7 mg/dl (0.6-1.3)
[2022-12-04 22:31] LABS: Basophils Percent Auto 0.2 % (0.0-3.0); Eosinophils Percent Auto 1.4 % (0.0-7.0); Hematocrit 44.9 % (33.0-51.0); Hemoglobin* 15.7 gm/dL (12.0-16.0); Immature Granulocytes Pct Auto 1.3 %; Lymphocytes Percent Auto 6.2 % (20-44); Mean Corpuscular HGB Conc 35 gm/dL (32-36); Mean Corpuscular Hemoglobin 34 pg (26-34); Mean Corpuscular Volume 97 fL (80-100); Monocytes Percent Auto 5.7 % (0.0-11.0); Neutrophils Percent Auto 85.2 % (42.0-72.0); Platelet Count* 193 K/uL (140-440); RDW Coefficient of Variation % 11.5 % (11.5-15.5); Red Blood Count 4.63 m/uL (4.00-5.20); White Blood Count* 12.94 K/uL (4.50-11.00)
[2022-12-04 22:39] LABS: Slide Review Reflex No
--- NOTE | 2022-12-04 22:40 | ED.SOB ---
HPI - SOB/Dyspnea General Chief Complaint: Shortness of Breath/Dyspnea Stated Complaint: Shortness of breath Time Seen by Provider: 12/04/22 21:35 History of Present Illness HPI Narrative: Patient is a 77-year-old woman who was seen yesterday for urinary tract infection started on nitrofurantoin. Patient's urinary symptoms have resolved but she presents tonight with shortness of breath that began over the course of the day. Patient has had intermittent chest pain but none recently. Patient arrives with an oxygen saturation of 90% on room air. She has had no nausea no vomiting no fevers no chills she is having normal bowel movements. She states the abdominal pain is fairly diffuse. She has had no hemoptysis or cough. She states that she has had a depressed ejection fraction in the past but adjustments to her medications have served to improve her ejection fraction. She is somewhat upset when I ask her if she has been in congestive heart failure as she states that she has never been in congestive heart failure. Patient has been compliant with her medications. She has had no rash or reaction to the antibiotic. EKG shows left bundle branch block which is present on her previous EKG from April 01. Related Data Home Medications Medication Instructions Recorded Confirmed carvedilol 6.25 mg tablet 6.25 mg PO QAM 04/04/22 12/03/22 famotidine 20 mg tablet 20 mg PO Q12H 04/04/22 12/03/22 lorazepam 0.5 mg tablet 0.5 mg PO Q12H PRN 04/04/22 12/03/22 losartan 25 mg tablet 25 mg PO DAILY 04/04/22 12/03/22 Previous Rx's Medication Instructions Recorded nitrofurantoin 100 mg PO BID 5 days #10 caps 12/03/22 monohydrate/macrocrystals 100 mg capsule Allergies Allergy/AdvReac Type Severity Reaction Status Date / Time No Known Drug Allergies Allergy Verified 12/03/22 12:27 Review of Systems Status of ROS: Reports: 10 or more systems reviewed and unremarkable except as noted in History and below [facility] Medical History Acid reflux ?K21.9 - Gastro-esophageal reflux disease without esophagitis (ICD-10) Essential hypertension ?I10 - Essential (primary) hypertension (ICD-10) Hx of uterine prolapse ?Z87.42 - Personal history of other diseases of the female genital tract (ICD-10) Surgical History History of appendectomy ?Z90.49 - Acquired absence of other specified parts of digestive tract (ICD-10) History of cholecystectomy ?Z90.49 - Acquired absence of other specified parts of digestive tract (ICD-10) History of hysterectomy ?Z90.710 - Acquired absence of both cervix and uterus (ICD-10) Hx of bilateral mastectomy ?Z90.13 - Acquired absence of bilateral breasts and nipples (ICD-10) Family History Father Cancer Mother DM (diabetes mellitus), type 2 CHF (congestive heart failure) Sister Seizures Social History Highest level of school completed/degree received: high school graduate Smoking Status: Never smoker How often do you have a drink containing alcohol: never AUDIT-C Alcohol total score: 0 Non-prescribed substance use: denies use Caffeine: Yes (coffee) service: No Exam Narrative: Exam Narrative: EXAM GENERAL: Patient appears comfortable and well. EYES: No scleral icterus. LYMPH: No supraclavicular or cervical lymphadenopathy. SKIN: Visible skin seen during exam normal or with benign process only. EXT: No dependent lower extremity pedal edema. HEART: Regular rate and rhythm with no murmurs, rubs, or gallops. LUNGS: Clear to auscultation bilaterally with no crackles or wheezes. ABD: Soft, non tender, non distended. PSYCH: Good eye contact, speech is not pressured. Const: Vital Signs, click to edit/add: Vital Signs - 24 hr 12/04/22 21:43 12/04/22 21:53 12/04/22 22:10 Temperature 97.9 F Pulse Rate [Pulse Oximeter] 81 69 Respiratory Rate 20 Blood Pressure [Ri ght Upper Arm] 132/68 Pulse Oximetry 91 90 90 Oxygen Delivery Me thod Room Air Room Air 12/04/22 23:06 Temperature Pulse Rate [Pulse Oximeter] 76 Respiratory Rate Blood Pressure [Ri ght Upper Arm] 141/64 H Pulse Oximetry 90 Oxygen Delivery Me thod Room Air Course Course Hospital Course: Patient seen examined. BNP comprehensive metabolic panel troponin EKG CBC lactate collected. Did not repeat UA as urine was collected yesterday. I also requested a PE CT study of the chest and a CT abdomen and pelvis. Patient on telemetry and shows sinus rhythm with left bundle branch block. Vital Signs Vital signs: Initial Vital Signs Temperature 97.9 F 12/04/22 21:43 Temperature Source Temporal Artery Scan 12/04/22 21:43 Pulse Rate 81 12/04/22 21:43 Respiratory Rate 20 12/04/22 21:43 Blood Pressure 132/68 12/04/22 21:43 Blood Pressure Mean 89 12/04/22 21:43 Blood Pressure Position Sitting 12/04/22 21:43 Pulse Oximetry 91 12/04/22 21:43 Oxygen Delivery Method Room Air 12/04/22 21:43 Vital Signs Temperature 97.9 F 12/04/22 21:43 Pulse Rate 81 12/04/22 21:43 Respiratory Rate 20 12/04/22 21:43 Blood Pressure 132/68 12/04/22 21:43 Pulse Oximetry 91 12/04/22 21:43 Oxygen Delivery Method Room Air 12/04/22 21:43 Temperature 97.9 F 12/04/22 21:43 Pulse Rate 76 12/04/22 23:06 Respiratory Rate 20 12/04/22 21:43 Blood Pressure 141/64 H 12/04/22 23:06 Pulse Oximetry 90 12/04/22 23:06 Oxygen Delivery Method Room Air 12/04/22 23:06 MDM - SOB/Dyspnea MDM Narrative Medical decision making narrative: Patient presents with abdominal pain and shortness of breath. Her oxygen saturation is 90%. I did review her complex history. EKG shows chronic left bundle-branch block CT PE study shows negative findings for pulmonary embolism. The CT of the abdomen pelvis is normal labs are unremarkable. Patient feels well and has a fairly unremarkable exam. Her vital signs are reasonably stable. I do not find any major findings on my thorough evaluation. I did not swab her for COVID-19 she has no significant respiratory symptoms. I did recommend close outpatient follow-up and continued use of nitrofurantoin for treatment of her urinary tract infection. Lab Data Labs: Lab Results 12/04/22 12/04/22 12/04/22 Range/Units 22:03 22:10 22:35 WBC 12.94 H (4.50-11.00) K/uL RBC 4.63 (4.00-5.20) m/uL Hgb 15.7 (12.0-16.0) gm/dL Hct 44.9 (33.0-51.0) % MCV 97 (80-100) fL MCH 34 (26-34) pg MCHC 35 (32-36) gm/dL RDW Coeff of Oswaldo 11.5 (11.5-15.5) % Plt Count 193 (140-440) K/uL Neut % (Auto) 85.2 H (42.0-72.0) % Lymph % (Auto) 6.2 L (20-44) % [place] % (Auto) 5.7 (0.0-11.0) % Eos % (Auto) 1.4 (0.0-7.0) % Baso % (Auto) 0.2 (0.0-3.0) % Neut # (Auto) 11.00 H (1.7-7.0) K/uL Lymph # (Auto) 0.80 L (0.90-2.90) K/uL [place] # (Auto) 0.70 (0.00-0.90) K/UL Eos # (Auto) 0.20 (0.00-0.50) K/uL Baso # (Auto) 0.00 (0.00-0.30) K/uL Sodium 134 L (135-149) mmol/L Potassium 3.9 (3.6-5.1) mmol/L Chloride 103 (96-114) mmol/L Carbon Dioxide 25 (20-32) mmol/L BUN 9 (7-30) mg/dL Creatinine 0.6 (0.5-1.5) mg/dL Estimated Creat Clear 42.70 Estimated GFR 91 ml/min Glucose 142 H (60-115) mg/dL Lactate 1.3 (0.5-1.9) mmol/L Calcium 8.9 (8.4-10.6) mg/dL Total Bilirubin 1.6 H (0.1-1.5) mg/dL AST 25 (12-35) U/L ALT 24 (4-35) U/L Alkaline Phosphatase 47 (40-150) U/L Troponin I 0.03 (0.01-0.04) ng/mL NT-Pro-B Natriuret Pep 481 pg/mL Total Protein 7.2 (6.0-8.3) g/dL Albumin 4.1 (3.3-5.0) g/dL Amylase 70 (18-89) U/L POC Creatinine 0.7 (0.6-1.3) mg/dl Discharge Plan Discharge Clinical Impression: Urinary tract infection Patient Disposition: Home, Self-Care Condition: Stable Instructions: Urinary Tract Infection in Women (ED) Additional Instructions: Continue Current medications Follow up with your doctor as needed Activity Level: No Restrictions Discharge Diet: Regular Prescriptions: No Action nitrofurantoin monohyd/m-cryst 100 mg capsule 100 mg PO BID 5 Days Qty: 10 0RF Rx Instructions: must administer with a meal/food carvedilol 6.25 mg tablet 6.25 mg PO QAM Patient Comments: TAKE 1 TABLET BY MOUTH IN THE MORNING AND 1 ONE ONE-HALF) IN THE EVENING famotidine 20 mg tablet 20 mg PO Q12H Patient Comments: TAKE 1 TABLET BY MOUTH TWICE DAILY lorazepam 0.5 mg tablet 0.5 mg PO Q12H PRN Patient Comments: TAKE 1 TABLET BY MOUTH EVERY 12 HOURS NEEDED FOR ANXIETY losartan 25 mg tablet 25 mg PO DAILY Patient Comments: TAKE 1 TABLET BY MOUTH ONCE DAILY Follow Up/Referrals: Provider,Not a Local [Primary Care Provider] - Stand Alone Forms: [email or web address] Info Instructions
[2022-12-04 22:51] LABS: Albumin* 4.1 g/dL (3.3-5.0); Chloride* 103 mmol/L (96-114); Sodium* 134 mmol/L (135-149)
[2022-12-04 22:52] LABS: Potassium* 3.9 mmol/L (3.6-5.1)
[2022-12-04 22:53] LABS: Amylase* 70 U/L (18-89)
[2022-12-04 22:54] LABS: Alanine Aminotransferase* 24 U/L (4-35); Alkaline Phosphatase* 47 U/L (40-150); Aspartate Amino Transferase* 25 U/L (12-35); Bilirubin Total* 1.6 mg/dL (0.1-1.5); Blood Urea Nitrogen* 9 mg/dL (7-30); Carbon Dioxide* 25 mmol/L (20-32); Creatinine* 0.6 mg/dL (0.5-1.5); Estimated Glomerular Filt Rate 91 ml/min; Glucose* 142 mg/dL (60-115); Total Protein* 7.2 g/dL (6.0-8.3)
[2022-12-04 22:55] LABS: Calcium* 8.9 mg/dL (8.4-10.6)
[2022-12-04 23:06] VITALS: BP 141/64; PULSE 76; O2SAT 90
[2022-12-04 23:06] LABS: Troponin I* 0.03 ng/mL (0.01-0.04)
[2022-12-04 23:22] LABS: NT Pro B Type NatriureticPept* 481 pg/mL
[2022-12-04 23:44] VITALS: BP 142/73; PULSE 65; RESP 18; O2SAT 91
== END 2022-12-04 23:46 | disposition home or self-care (01) ==
PROVIDERS: Emergency Provider Internal Medicine
DX: N39.0 Urinary tract infection, site not specified (principal)
CPT/HCPCS: 36415; 71260; 74177; 80053; 82150; 82565; 83605; 83880; 84484; 85025; 93005; 94761; 99283; 99284; 99285; Q9967

== ENCOUNTER 2024-04-02 10:11 | Outpatient (CLI) | payer MEDICARE, SELFPAY ==
--- OUTSIDE RECORDS SUMMARY | 2024-04-02 10:14 | XMS_ITS | Encounter Summary ---
Author Organization [facility] Address [address] [address] Support Name Relationship Address Phone Jae Sales Emergency Contact [address] [place] [address] Declined 08/30 Emergency Contact Unknown Unavaila ble Care Team Providers Care Stripper Shovel Operator Name Role Phone Zoe Auguste APRN, CNP Primary Care Provider Reason for Visit * Reason Comments Refill Encounter Details Date Type Department Care Team (Late Contact Info) Description 01/05/2024 [facility]ill [facility] [address] [place], [place] [id number] Megan Siddiqui MD [address] [id number] Refill Social History Tobacco Use Types Packs/Day Years Used Date Smoking Tobacco: Never Smokeless Tobacco: Never Alcohol Use Standard Drinks/Week Comments No 0 (1 standard drink = 0.6 oz pur e alcohol) PHQ-2 Answer Date Recorded PHQ-2 Score 0 01/10/2021 Sex and Gender Information Value Date Recorded Sex Assigned at Not on file Gender Identity Not on file Sexual Orientation Not on file documented as of this encounter Plan of Treatment Upcoming Encounters Date Type Department Care Team (Late st Contact Info) Description 05/25/2024 11:00 AM CDT Appointment Dania Aguilar [id number] [facility] [address] [place] [address] documented as of this encounter Visit Diagnoses Not on filedocumented in this encounter Care Teams Stripper Shovel Operator Relationship Specialty Start Date End Date Zoe Auguste APRN, CNP [id number] [place] [address] FREYA Monteiro [address] PCP - General 05/05/13 documented as of this encounter
--- OUTSIDE RECORDS SUMMARY | 2024-04-02 10:14 | XMS_ITS | Encounter Summary ---
Author Organization [facility] Address [address] [address] Support Name Relationship Address Phone Jae Sales Emergency Contact [address] [place] [address] Declined 08/30 Emergency Contact Unknown Unavaila ble Care Team Providers Care Pulp Refiner Operator Name Role Phone Zoe Auguste APRN, SHIPPING CLERK CRATING Primary Care Provider Reason for Visit * Reason Onset Date Comments Refill 03/09/2024 Pharmacy 03/09/2024 Lorazepam 0.5mg Tablet Encounter Details Date Type Department Care Team (Late st Contact Info) Description 03/09/2024 Telephone [facility] [address] [place] [address] Megan Siddiqui MD [address] [place] [address] Refill; Pharmacy (Lorazepam 0.5mg Tablet) Social History Tobacco Use Types Packs/Day Years [...] on file documented as of this encounter Nursing Notes * Linda Bell RN - 03/10/2024 12:11 PM CDT Pt paid out of pocket for med. * Joy Horta - 03/09/2024 4:51 PM CDT MEDICATION NOT COVERED: Pharmacy stating pts insurance does not cover Lorazepam 0.5mg Tablet. Please advise and send new rx or initiate a prior auth if appropriate, thank you. Marivel [place]mun[place] PH: [phone] documented in this encounter Plan of Treatment Upcoming Encounters Date Type Department Care Team (Late st Contact Info) Description 05/25/2024 11:00 AM CDT Appointment Dania Claros [phone] [facility]iology [address] [place] [address] documented as of this encounter Visit Diagnoses Not on filedocumented in this encounter Care Teams Pulp Refiner Operator Relationship Specialty Start Date End Date Zoe Auguste APRN, SHIPPING CLERK CRATING [address] [place] [id number] PCP - General 05/05/13 documented as of this encounter
--- OUTSIDE RECORDS SUMMARY | 2024-04-02 10:14 | XMS_ITS | Encounter Summary ---
Author Organization [facility] Address [address] [address] Support Name Relationship Address Phone Jae Sales Emergency Contact [address] [place] [address] Declined 08/30 Emergency Contact Unknown Unavaila ble Care Team Providers Care Helpdesk Specialist Name Role Phone HindsZoe APRN, MOVIE CRITIC Primary Care Provider Reason for Visit * Procedure/Equipment (Routine) - Incomplete Specialty Diagnoses / Procedures Referred By Contac t Referred To Contact Diagnoses Neck pain Procedures XR Cervical Spine 1 View Megan Siddiqui MD [address] [place] [address] Referral ID Status Reason Start Date Expiration Date V isits Requested Visits Authorized [id number] Incomplete 02/26/2024 05/27/2025 1 1 Encounter Details Date Type Department Care Team (Latest Contact Info) Description 03/10/2024 1:25 PM CDT Ancillary Procedure [facility] [address] [place] [address] Megan Siddiqui MD [address] [place] [address] Hypercholesteremia (Primary Dx); Neck pain Social History Tobacco Use Types Packs/Day Years [...] on file documented as of this encounter Progress Notes * Megan Siddiqui MD - 03/10/2024 1:25 PM CDT Dear Mónica I am sending you the report of your spine. You can take the report to your chiropractor. If you need the actual x-ray, you can call the Health information Management and they will mail you a copy of the x-ray. Please call me with any question. Thanks again for giving me the opportunity to take care of you. Megan Siddiqui MD Fundraising Consultant Product Safety Coordinator documented in this encounter Plan of Treatment Upcoming Encounters Date Type Department Care Team (Late st Contact Info) Description 05/25/2024 11:00 AM CDT Appointment Dania Mayra Aguilar [phone] [facility] Cardiology [address] [place] [address] documented as of this encounter Procedures Procedure Name Priority Date/Time Associated Diagnosis Comments XR CERVICAL SPINE 1 VIEW Routine 03/10/2024 1:45 PM CDT Neck pain documented in this encounter Results * XR Cervical Spine 1 View (03/10/2024 1:45 PM CDT) Anatomical Region Laterality Modality Spine, C-Spine, Neck Digital Rad iography 03/10/2024 1:33 PM CDT Impressions 03/10/2024 3:00 PM CDT COMPARISON: ??None. FINDINGS: ??There is reversal of the normal cervical spine curvature. ??there are advanced degenerative changes of the C5-6 level with disc space narrowing and spur formation. There is associated facet arthropathy. ??No definite fracture. Narrative Procedure Note Patrice Henderson MD - 03/10/2024 IMPRESSION COMPARISON: None. FINDINGS: There is reversal of the normal cervical spine curvature.there are advanced degenerative changes of the C5-6 level with disc spacenarrowing and spur formation. There is associated facet arthropathy. Nodefinite fracture. Megan Siddiqui MD RAD GD * (ABNORMAL) Lipid Panel & Direct LDL (if Needed) (03/10/2024 1:17 PM CDT) Cholesterol 208(H) 0 - 199 mg/dL 03/11/2024 2:18 PM CDT [facility] Triglyceride 265(H) <=149 mg/dL 03/11/2024 2:18 PM CDT [facility] HDL Cholesterol 34(L) >=40 mg/dL 2:18 PM CDT [facility] LDL, Calculated 121 <130 mg/dL 2:18 PM CDT [facility] Non HDL Chol, Calculated 174(H) <=159 mg/dL 03/11/2024 2:18 PM CDT [facility] Cholesterol/HDL Ratio 6.1(H) <=5.0 03/11/2024 2:18 PM T [facility] Hours Fasting 0.0 8 - 12 Hours 03/11/2024 2:18 PM T [facility] Comment:Patient has indicate d a non-fasting status. Blood Venipuncture / Unknown 03/10/2024 1:17 PM CDT 03/10/2024 1:17 PM CDT Megan Siddiqui MD LAB_1 [facility] [address] [place] [address] documented in this encounter Visit Diagnoses Diagnosis Hypercholesteremia- Primary Pure hypercholesterolemia Neck pain Cervicalgia documented in this encounter Care Teams Helpdesk Specialist Relationship Specialty Start Date End Date Zoe Auguste, NEON TUBE BENDER, MOVIE CRITIC [address] [place] [address] PCP - General 05/05/13 documented as of this encounter
--- OUTSIDE RECORDS SUMMARY | 2024-04-02 10:14 | XMS_ITS | Clinical Summary ---
Author Organization [email or web address] Address [place], [place] [address] Care Team Providers Care Patrol Judge Name Role Phone Unavailable Primary Care Provider Unavailabl e Allergies Active Allergy Reactions Criticality Noted Date Comments Dionicio Inhibitors Cough 02/06/2021 Medications Medication Sig Dispensed Refills Start Date End Date Status calcium citrate-vitamin d 315 mg-200 unit 315 mg-5 mcg (200 unit) tablet Take 1 Tablet by mouth. 08/31/2019 Active carvediloL (COREG) 6.25 mg tablet TAKE 1 TABLET BY MOUTH IN THE MORNING AND 1 & 1/2 (ONE & ONE-HALF) IN THE EVENING 11/27/2020 Active LORazepam (ATIVAN) 0.5 mg tab Take 0.5 mg by mouth every 12 hours if needed. 10/19/2020 Active medication order composer PLEXUS 0 02/09/2021 Active predniSONE (DELTASONE) 20 mg tabletIndications:Prima ry osteoarthritis of both knees 2 po q am 10 Tablet 02/09/2021 Active famotidine (PEPCID) 20 mg tabletIndications:Hiata l hernia Take 1 Tablet (20 mg) by mouth 2 times daily. 90 Tablet 3 02/09/2021 Active losartan (COZAAR) 25 mg tabletIndications:Essen tial hypertension Take 1 Tablet (25 mg) by mouth once daily. 30 Tablet 01/23/2022 Active Active Problems Problem Noted Date Diagnosed Date H/O bilateral mastectomy 01/10/2021 Insomnia 01/10/2021 Elevated hemoglobin 01/10/2021 Chronic constipation 01/10/2021 Sliding hiatal hernia 07/09/2017 Hx of colonic polyp 11/18/2012 LBBB (left bundle branch block) 03/09/2012 Obesity, Class II, BMI 35-39.9 03/09/2012 Overview: Obesity, unspecified Cardiomyopathy 05/19/2011 Overview: Her cardiomyopathy was initially diagnosed in 2010 when she presented to the hospital on May 2011. In that note it was mentioned that she presented because of shortness of breath and her ejection fraction demonstrated EF of 30%. COUGH DUE TO DIONICIO INHIBITORS 06/01/2003 HYPERLIPIDEMIA 07/22/2002 HYPERTENSION - ESSENTIAL 06/17/2002 VERTIGO - BENIGN PAROXYSMAL POSITION 06/17/2002 CYSTITIS 06/02/2002 Resolved Problems Problem Noted Date Diagnosed Date Resolved Date Acute upper respiratory infe ctions of unspecified site 05/18/2004 02/06/2021 CERUMEN 11/30/2003 12/14/2003 ABNORMAL FINDINGS, ELEVATED BP W/O HTN 05/10/2002 02/06/2021 Immunizations Name Administration Dates Next Due Tdap 01/10/2021 Family History Medical History Relation Name Comments Leukemia Brother asa child Cancer-colon Father Coronary artery disease Maternal Grandfather Other Mother Pericardial eff usion Cancer-breast Sister 1 Cleft lip Sister 2 choked before i t was fixed Relation Name Status Comments Brother Father Maternal Grandfather Mother Sister 1 Alive Sister 2 Social History Tobacco Use Types Packs/Day Years Used Date Smoking Tobacco: Never Smokeless Tobacco: Never Social Connections Answer Date Recorded Frequency of Communication with Friends and Fami ly Not on file 08/06/2021 Financial Resource Strain Answer Date R ecorded Difficulty of Paying Living Expenses Not on file 08/06/2021 Difficulty of Paying Living Expenses Not on file 08/06/2021 Sex and Gender Information Value Date Recorded Sex Assigned at Not on file Gender Identity Not on file Sexual Orientation Not on file Obstetrics History Last Filed Vital Signs Vital Sign Reading Time Taken Comments Blood Pressure 120/62 02/09/2021 10:58 AM CDT Pulse 76 02/09/2021 10:58 AM CDT Temperature 36.3 ??C (97.3 ??F) 06/06/2005 12:00 AM C DT Respiratory Rate 18 06/01/2007 11:27 AM CDT Oxygen Saturation 98% 05/13/2005 12:00 AM CDT Inhaled Oxygen Concentration - - Weight 97.5 kg (215 lb) 02/09/2021 10:58 AM CDT Height 167.6 cm (5' 6) 06/07/2004 12:00 AM CDT Body Mass Index - - Plan of Treatment Health Maintenance Due Date Last Done Comments Depression screening for age 12+ 1955 BMI (ht and wt on same day) for age 18+ 1961 Zoster (shingles) series for age 50+ (1 of 2) 05/15/19 93 DEXA/DXA scan for age 65+ 2008 Medicare Wellness for age 65+ 2008 Pneumococcal series for age 65+ (1 of 1 - PCV) 008 COVID-19 vaccine series ( - 2022-24 season) 3 Influenza for age 65+ 04/11/2024 Tetanus booster 01/10/2031 01/10/2021 Tdap Completed 01/10/2021
--- OUTSIDE RECORDS SUMMARY | 2024-04-02 10:14 | XMS_ITS | Clinical Summary ---
[facility] Organization [facility] Address [address] [address] Support Name Relationship Address Phone Jae Sales Emergency Contact [address] [place] [address] Declined 08/30 Emergency Contact Unknown Unavaila ble Care Team Providers Care Mill Feeder Name Role Phone Zoe Auguste APRN, JESSICA Primary Care Provider Source Comments You are receiving this document as you are listed as the primary care provider,follow-up provider, or the patient has been referred to you for consultation.This is in compliance with the Medicare and[facility] E[facility] Incentive [facility],which states Providers who transition their patient to another setting of careor provider of care or refers their patient to another provider of care shouldprovide summary care record for each transition of care or referral. [facility] Allergies Active Allergy Reactions Criticality Noted Date Comments Dionicio Inhibitors Cough 02/06/2021 Medications Medication Sig Dispensed Refills Start Date End Date Status calcium citrate-vitamin D (CITRACAL+D) 315-200 MG-UNIT tablet Take 1 Tablet by mouth two times a day. osteoporosis 100 Tablet 08/31/2019 Active Multiple Vitamins-Minerals (ZINC OR) Active VITAMIN K OR Active carvedilol (COREG) 6.25 MG tablet Take 1 tab (6.25 mg) in the morning; Take 1.5 tabs (9.375) in the evening 225 Tablet 3 02/26/2024 Active famotidine (PEPCID) 20 MG tablet Take 1 Tablet (20 mg) by mouth two times a day. 180 Tablet 02/26/2024 Active furosemide (LASIX) 20 MG tabletIndications :cardiomyopathy Take daily as needed for SOB or ankle swelling. Indications: cardiomyopathy 15 Tablet 3 02/26/2024 Active losartan (COZAAR) 25 MG tablet Take 1 Tablet (25 mg) by mouth daily. 90 Tablet 3 02/26/2024 Active LORazepam (ATIVAN) 0.5 MG tablet Take 1 Tablet (0.5 mg) by mouth every 12 hours as needed for Anxiety. 30 Tablet 1 02/26/2024 Active Active Problems Problem Noted Date Diagnosed Date H/O bilateral mastectomy 01/10/2021 Elevated hemoglobin 01/10/2021 Chronic constipation 01/10/2021 Insomnia 01/10/2021 Hypercholesterolemia 10/18/2019 Sliding hiatal hernia 07/09/2017 Hx of colonic polyp 11/18/2012 Obesity, Class II, BMI 35-39.9 03/09/2012 Overview (04/02/2017): Obesity, unspecified Essential hypertension 03/09/2012 LBBB (left bundle branch block) 03/09/2012 Cardiomyopathy 05/19/2011 Overview (03/09/2020): Her cardiomyopathy was initially diagnosed in 2010 when she presented to the hospital on May 2011. In that note it was mentioned that she presented because of shortness of breath and her ejection fraction demonstrated EF of 30%. Resolved Problems Problem Noted Date Diagnosed Date Resolved Date Closed displaced fracture of lesser trochanter of right femur 08/27/2019 10/18/2019 Overview (08/27/2019): Added automatically from request for surgery [id number] Leg swelling 10/06/2013 08/26/2016 Encounter for antineoplastic chemotherapy 06/03/2013 08/26/2016 Malignant neoplasm of female breast 04/30/2013 01/10/2021 Overview (04/02/2017): Malignant neoplasm of breast (female), unspecified site (HRC) Hemorrhoid 11/18/2012 08/26/2016 Chronic systolic heart failure 10/01/2012 12/15/2018 Essential hypertension 07/09/201108/26 Dyspnea 05/18/2011 08/26/2016 Chest pain 05/18/2011 08/26/2016 Seasonal allergies 05/18/2011 7 Encounters Date Type Department Care Team Description 03/10/2024 1:25 PM CDT Ancillary Procedure [facility] [address] [place] [address] Megan Siddiqui MD Hypercholesteremia (Primary Dx); Neck pain 03/10/2024 1:20 PM CDT Lab Visit [facility] [address] [place] [address] Essential hypertension (HRC); Hypercholesteremia 03/09/2024 [facility] [address] [place] [address] Megan Siddiqui MD Refill; Pharmacy (Lorazepam 0.5mg Tablet) 02/26/2024 1:00 PM CDT Office Visit [facility] [address] [facility] [address] [place] [address] Megan Siddiqui MD Essential hypertension (HRC) (Primary Dx); Neck pain; Dilated cardiomyopathy (HRC); Hypercholesterolemia; LBBB (left bundle branch block) 01/05/2024 [facility] [address] [place] [address] Megan Siddiqui MD Refill from Last 3 Months Immunizations Name Administration Dates Next Due Tdap 01/10/2021 Family History Medical History Relation Name Comments Cancer, Colon Father Heart Failure Mother Diabetes Sister 1 Cancer Sister 2 Cancer, Breast Sister 2 Amblyopia/Strabismus Negative Family History Cataract Negative Family History Glaucoma Negative Family History Macular Degeneration Negative Family History Retinal Detachment Negative Family History Relation Name Status Comments Father Mother Sister 1 Alive Sister 2 Sister 3 Alive Social History Tobacco Use Types Packs/Day Years Used Date Smoking Tobacco: Never Smokeless Tobacco: Never Alcohol Use Standard Drinks/Week Comments No 0 (1 standard drink = 0.6 oz pur e alcohol) PHQ-2 Answer Date Recorded PHQ-2 Score 0 01/10/2021 Sex and Gender Information Value Date Recorded Sex Assigned at Not on file Gender Identity Not on file Sexual Orientation Not on file Last Filed Vital Signs Vital Sign Reading Time Taken Comments Blood Pressure 146/73 02/26/2024 12:59 PM CDT Pulse 62 02/26/2024 12:59 PM CDT Temperature 36.7 ??C (98 ??F) 10/06/2022 10:46 AM BAIT PACKER Respiratory Rate 14 10/08/2022 2:15 PM BAIT PACKER Oxygen Saturation 91% 10/08/2022 2:15 PM BAIT PACKER Inhaled Oxygen Concentration - - Weight 94.4 kg (208 lb 3.2 oz) 02/26/2024 12:59 PM CDT Height 160 cm (5' 3) 02/26/2024 12:59 PM CDT Body Mass Index 36.88 02/26/2024 12:59 PM CDT Plan of Treatment Upcoming Encounters Date Type Department Care Team (Late st Contact Info) Description 05/25/2024 11:00 AM CDT Appointment [facility] [address] [facility] [address] [place] [address] Health Maintenance Due Date Last Done Comments MTM Covered 1945 Medicare Annual Wellness Visit 1945 Pneumococcal 65+ Yrs (1 - PCV) 1949 Zoster/Shingles (1 of 2) 1993 COVID-19 Vaccine (1 - 2022-2 4 season) 2023 Influenza (#1) 2024 Colonoscopy 10/08/2025 10/08/2022, 06/01/2019, 02/29/2016 DTaP/Tdap/Td (2 - Tdap) 01/10/2031 01/10/2021 Dexa Completed 12/13/2013, 12/08/2013 HepA Aged Out No longer eligi ble based on patient's age to complete this topic HepB Aged Out No longer eligi ble based on patient's age to complete this topic Hib Aged Out No longer eligi ble based on patient's age to complete this topic IPV (Polio) Aged Out No longer eligi ble based on patient's age to complete this topic MCV4 Aged Out No longer eligi ble based on patient's age to complete this topic Medical Devices Implanted Type Area Winchman/Crane Operator Device Identifier Shelf Expiration Date Model / Serial / Lot Nail Marco Ti St 130d [id number] - [id number] Implanted:Qty: 1 on 08/27/2019 by Kaity Wood MD at [facility] DEVICE Right: [employer]IP [employer] - Trauma 12/09/2027 [id number] S / / [id number] Scr Tfna Fenstd St 100mm - [id number] Implanted:Qty: 1 on 08/27/2019 by Kaity Wood MD at [facility] DEVICE Right: [employer] - Trauma 01/08/2029 [id number] S / / [id number] Scr Lk Ti T25 St 5.0x46 - [id number] Implanted:Qty: 1 on 08/27/2019 by Kaity Wood MD at [facility] DEVICE Right: HIP [employer] - Trauma 07/10/2027 [id number] S / / [id number] Procedures Procedure Name Priority Date/Time Associated Diagnosis Comments XR CERVICAL SPINE 1 VIEW Routine 03/10/2024 1:45 PM CDT Neck pain LIPID PANEL & DIRECT LDL (IF NEEDED) Routine 03/10/2024 1:17 PM CDT Hypercholesteremia BASIC METABOLIC PANEL Routine 03/10/2024 1:17 PM CDT Essential hypertension (HRC) ENDOSCOPY, COLON, SCREENING/DIAGNOST IC Routine 10/08/2022 12:48 PM BAIT PACKER Hx of colonic polyp Colon cancer screening DXA BONE DENSITY STUDY 1+ SITS AXIAL Routine 12/13/2013 10:40 AM CDT Menopause from Last 3 Months or Most Recently Relevant to Health Maintenance Results * XR Cervical Spine 1 View [...] - 199 mg/dL 03/11/2024 2:18 PM CDT [facility] Triglyceride 265(H) <=149 mg/dL 03/11/2024 2:18 PM T [facility] HDL Cholesterol 34(L) >=40 mg/dL 2:[address] [facility] LDL, Calculated 121 <130 mg/dL 2:18 PM T [facility] Non HDL Chol, Calculated 174(H) <=159 mg/dL 03/11/2024 2:[address] [facility] Cholesterol/HDL Ratio 6.1(H) <=5.0 03/11/2024 2:[address] [facility] Hours Fasting 0.0 8 - 12 Hours 03/11/2024 2:[address] [facility] Comment:Patient has indicate d a non-fasting status. Blood Venipuncture / Unknown 03/10/2024 1:17 PM CDT 03/10/2024 1:17 PM CDT Megan Siddiqui MD LAB_1 [facility] [address] [place] [address] * (ABNORMAL) Basic Metabolic Panel (03/10/2024 1:17 PM CDT) Sodium 141 136 - 145 mmol/L 03/10/2024 6:58 PM CDT [facility] Potassium 4.2 3.5 - 5.1 mmol/L 03/10/2024 6:58 PM T [facility] Chloride 105 98 - 109 mmol/L 03/10/2024 6:58 PM T [facility] CO2 24 20 - 29 mmol/L 03/10/2024 6:[address] [facility] Anion Gap 12 6 - 16 mmol/L 03/10/2024 6:[address] [facility] Calcium 9.7 8.4 - 10.4 mg/dL 03/10/2024 6:[address] [facility] BUN 12 7 - 26 mg/dL 03/10/2024 6:[address] [facility] Creatinine 0.75 0.55 - 1.02 mg/dL 03/10/2024 6:[address] [facility] Glucose 108(H) 70 - 100 mg/dL 03/10/2024 6:[address] [facility] Comment:The given reference range is for the fasting state. Non-fasting reference range for glucose is 70 - 180 mg/dL. GFR, Estimated >60 >60 mL/min/1.7 3m2 03/10/2024 6:[address] [facility] Hours Fasting 0.0 8 - 12 Hours 03/10/2024 6:[address] [facility] Blood Venipuncture / Unknown 03/10/2024 1:17 PM CDT 03/10/2024 1:17 PM CDT Megan Siddiqui MD LAB_1 Performing Organization Address City/State/[facility] Co de Phone Number [facility] [address] [place] [address] * Endoscopy, colon, diagnostic (10/08/2022 12:48 PM BAIT PACKER) 10/08/2022 12:4 8 PM BAIT PACKER Narrative PN PROVATION - 10/08/2022 12:48 PM BAIT PACKER Patient Name: Pamela Sales Procedure Date: 10/08/2022 12:48 PM Date of : 1945 Admit Type: Outpatient Age: 77 Gender: Female Note Status: Finalized Attending MD: Morena Reed , Procedure: ? Colonoscopy Indications: ? High risk colon cancer ? surveillance: Personal history of ? colonic polyps, Last colonoscopy: ? May 2019 Providers: ? Sophie Perez Referring MD: ?Ann Gilbert MD Medicines: ? Fentanyl 100 micrograms IV, ? Midazolam 3 mg IV Complications: ? No immediate complications. Procedure: ? After I obtained informed consent, ? the scope was passed under direct ? vision. Throughout the procedure, ? the patient's blood pressure, ? pulse, and oxygen saturations were ? monitored continuously. The ? [id number] was introduced through ? the anus and advanced to the cecum, ? identified by appendiceal orifice ? and ileocecal valve. The patient ? tolerated the procedure well. The ? quality of the bowel preparation ? was good. The colonoscopy was ? performed without difficulty. Findings: ? A 7 to 8 mm polyp was found in the proximal ? transverse colon. The polyp was sessile. The polyp ? was removed with a cold snare. Resection and ? retrieval were complete. ? A 3 to 4 mm polyp was found in the distal transverse ? colon. The polyp was sessile. The polyp was removed ? with a cold snare. Resection and retrieval were ? complete. ? Many small and large-mouthed diverticula were found ? in the sigmoid colon. ? Hemorrhoids were found during retroflexion. ? No additional abnormalities were found on ? retroflexion. Moderate Sedation: ? Moderate (conscious) sedation was administered by the ? endoscopy nurse and supervised by the endoscopist. ? The patient's oxygen saturation, heart rate, blood ? pressure and response to care were monitored. Total ? physician intraservice time was 15 minutes. ? This time is the duration from the initial medication ? administration until the assistant media planner assists with ? initial maneuvers (biopsy / polypectomy / etc.), or ? if no maneuvers are performed, until the endoscopist ? leaves the room. Impression: ?- One 7 to 8 mm polyp in the ? proximal transverse colon, removed ? with a cold snare. Resected and ? retrieved. ? - One 3 to 4 mm polyp in the distal ? transverse colon, removed with a ? cold snare. Resected and retrieved. ? - Diverticulosis in the sigmoid ? colon. ? - Hemorrhoids. Recommendation: ?- Await pathology results. ? - No recall colonoscopy given age ? and current colon polyp ? surveillance guidelines Procedure Code(s): ? --- Professional --- ? 43453, Colonoscopy, flexible; with ? removal of tumor(s), polyp(s), or ? other lesion(s) by snare technique ? G0500, Moderate sedation services ? provided by the same physician or ? other qualified health care ? professional performing a ? gastrointestinal endoscopic service ? that sedation supports, requiring ? the presence of an independent ? trained observer to assist in the ? monitoring of the patient's level ? of consciousness and physiological ? status; initial 15 minutes of ? intra-service time; patient age 5 ? years or older (additional time may ? be reported with 79409, as ? appropriate) Diagnosis Code(s): ? --- Professional --- ? Z86.010, Personal history of ? colonic polyps ? K63.5, Polyp of colon ? K64.9, Unspecified hemorrhoids ? K57.30, Diverticulosis of large ? intestine without perforation or ? abscess without bleeding CPT copyright 2020 [employer]. All rights reserved. The codes documented in this report are preliminary and upon log marker review may be revised to meet current compliance requirements. Morena Reed, 10/08/2022 2:03:26 PM This document has been electronically signed. Number of Addenda: 0 Note Initiated On: 10/08/2022 12:48 PM ? Endoscopy Report Procedure Note Morena Reed MD - 10/08/2022 Patient Name: Pamela Sales Procedure Date: 10/08/2022 12:48 PM Date of : 1945 Admit Type: Outpatient Age: 77 Gender: Female Note Status: Finalized Attending MD: Morena Reed , Procedure: Colonoscopy Indications: High risk colon cancer surveillance: Personal history of colonic polyps, Last colonoscopy: May 2019 Providers: Sophie Perez Referring MD: Ann Gilbert MD Medicines: Fentanyl 100 micrograms IV, Midazolam 3 mg IV Complications: No immediate complications. Procedure: After I obtained informed consent, the scope was passed under direct vision. Throughout the procedure, the patient's blood pressure, pulse, and oxygen saturations were monitored continuously. The [id number] was introduced through the anus and advanced to the cecum, identified by appendiceal orifice and ileocecal valve. The patient tolerated the procedure well. The quality of the bowel preparation was good. The colonoscopy was performed without difficulty. Findings: A 7 to 8 mm polyp was found in the proximal transverse colon. The polyp was sessile. The polyp was removed with a cold snare. Resection and retrieval were complete. A 3 to 4 mm polyp was found in the distal transverse colon. The polyp was sessile. The polyp was removed with a cold snare. Resection and retrieval were complete. Many small and large-mouthed diverticula were found in the sigmoid colon. Hemorrhoids were found during retroflexion. No additional abnormalities were found on retroflexion. Moderate Sedation: Moderate (conscious) sedation was administered by the endoscopy nurse and supervised by the endoscopist. The patient's oxygen saturation, heart rate, blood pressure and response to care were monitored. Total physician intraservice time was 15 minutes. This time is the duration from the initial medication administration until the assistant media planner assists with initial maneuvers (biopsy / polypectomy / etc.), or if no maneuvers are performed, until the endoscopist leaves the room. Impression: - One 7 to 8 mm polyp in the proximal transverse colon, removed with a cold snare. Resected and retrieved. - One 3 to 4 mm polyp in the distal transverse colon, removed with a cold snare. Resected and retrieved. - Diverticulosis in the sigmoid colon. - Hemorrhoids. Recommendation: - Await pathology results. - No recall colonoscopy given age and current colon polyp surveillance guidelines Procedure Code(s): --- Professional --- 93952, Colonoscopy, flexible; with removal of tumor(s), polyp(s), or other lesion(s) by snare technique G0500, Moderate sedation services provided by the same physician or other qualified health neonatal intensive care unit nurse performing a gastrointestinal endoscopic service that sedation supports, requiring the presence of an independent trained observer to assist in the monitoring of the patient's level of consciousness and physiological status; initial 15 minutes of intra-service time; patient age 5 years or older (additional time may be reported with 08196, as appropriate) Diagnosis Code(s): --- Professional --- Z86.010, Personal history of colonic polyps K63.5, Polyp of colon K64.9, Unspecified hemorrhoids K57.30, Diverticulosis of large intestine without perforation or abscess without bleeding CPT copyright 2020 [employer]. All rights reserved. The codes documented in this report are preliminary and upon log marker review may be revised to meet current compliance requirements. Morena Reed, 10/08/2022 2:03:26 PM This document has been electronically signed. Number of Addenda: 0 Note Initiated On: 10/08/2022 12:48 PM Endoscopy Report Makenna Buckner APRN, COMPUTER INSTRUCTOR PN GI PROCED URE ORDERABLES PN PROVATION from Last 3 Months or Most Recently Relevant to Health Maintenance Advance Directives * Full Code (Latest Code Status on File) Date Activated Date Inactivated Comments 03/13/2020 2:00 PM 03/13/2020 10:33 PM * Full Code Date Activated Date Inactivated Comments 08/27/2019 11:50 PM 09/01/2019 5:15 PM * Full Code Date Activated Date Inactivated Comments 04/07/2017 1:44 PM 04/08/2017 6:49 PM Care Teams Mill Feeder Relationship Specialty Start Date End Date Zoe Auguste, WOOL SPOTTER, COMPUTER INSTRUCTOR [address] [place] [address] PCP - General 05/05/13
--- OUTSIDE RECORDS SUMMARY | 2024-04-02 10:14 | XMS_ITS ---
[facility] Address [address] [address] Support Name Relationship Address Phone Jae Sales Emergency Contact [address] [place] [address] Declined 08/30 Emergency Contact Unknown Unavaila ble Care Team Providers Care Barbecue Cook Name Role Phone Zoe Auguste APRN, FENDER FINISHER Primary Care Provider Active Problems Problem Noted Date Diagnosed Date [...] her ejection fraction demonstrated EF of 30%. Current Oncology Plans No current plan information found. Past Plans No past plan information found. Radiation Treatments * No radiation treatments are [facility]. Treatments may have been administered in another system. Lifetime Dose Tracking * Chemical Lifetime Dose Automatic Entry Manual Entr y Fluoro Time 2.55 minutes 2.55 minutes 0 minutes Total Air Kerma 9.82 mGy 9.82 mGy 0 mGy Resolved Problems Problem Noted Date Diagnosed Date Resolved Date Closed displaced fracture of lesser trochanter of right femur 08/27/2019 10/18/2019 Overview (08/27/2019): Added automatically from request for surgery [id number] Leg swelling 10/06/2013 08/26/2016 Encounter for antineoplastic chemotherapy 06/03/2013 08/26/2016 Malignant neoplasm of female breast 04/30/2013 01/10/2021 Overview (04/02/2017): Malignant neoplasm of breast (female), unspecified site (HRC) Hemorrhoid 11/18/2012 08/26/2016 Chronic systolic heart failure 10/01/2012 12/15/2018 Essential hypertension 07/09/201108/26 Dyspnea 05/18/2011 08/26/2016 Chest pain 05/18/2011 08/26/2016 Seasonal allergies 05/18/2011 7
--- OUTSIDE RECORDS SUMMARY | 2024-04-02 10:14 | XMS_ITS | Encounter Summary ---
[facility] Address [address] [address] Support Name Relationship Address Phone Jae Sales Emergency Contact [address] [place] [address] Declined 08/30 Emergency Contact Unknown Unavaila ble Care Team Providers Care Cafeteria Supervisor Name Role Phone Zoe Auguste APRN, SIEVE MAKER Primary Care Provider Encounter Details Date Type Department Care Team (Late Contact Info) Description 03/10/2024 1:20 PM CDT Lab Visit [facility] [address] [place] [address] Essential hypertension (HRC); Hypercholesteremia Social History Tobacco Use Types Packs/Day Years [...] Encounters Date Type Department Care Team (Late Contact Info) Description 05/25/2024 11:00 AM CDT Appointment [facility] [place] [address] [facility] [address] [place] [address] documented as of this encounter Procedures Procedure Name Priority Date/Time Associated Diagnosis Comments LIPID PANEL & DIRECT LDL (IF NEEDED) Routine 03/10/2024 1:17 PM CDT Hypercholesteremia BASIC METABOLIC PANEL Routine 03/10/2024 1:17 PM CDT Essential hypertension (HRC) documented in this encounter Results * (ABNORMAL) Lipid Panel & Direct LDL (if Needed) (03/10/2024 1:17 PM CDT) Cholesterol 208(H) 0 - 199 mg/dL 03/11/2024 2:18 PM CDT [facility] Triglyceride 265(H) <=149 mg/dL 03/11/2024 2:18 PM T [facility] HDL Cholesterol 34(L) >=40 mg/dL 4 2:18 PM T [facility] LDL, Calculated 121 <130 mg/dL 4 2:18 PM T [facility] Non HDL Chol, Calculated 174(H) <=159 mg/dL 03/11/2024 2:18 PM T [facility] Cholesterol/HDL Ratio 6.1(H) <=5.0 03/11/2024 2:18 PM [facility] Hours Fasting 0.0 8 - 12 Hours 03/11/2024 2:18 PM [facility] Comment:Patient has indicate d a non-fasting status. Blood Venipuncture / Unknown 03/10/2024 1:17 PM CDT 03/10/2024 1:17 PM CDT Megan Siddiqui MD LAB_1 [facility] [address] [place] [address]RUST * (ABNORMAL) Basic Metabolic Panel (03/10/2024 1:17 PM CDT) Pathologist [facility] Sodium 141 136 - 145 mmol/L 03/10/2024 6:58 PM CDT [facility] Potassium 4.2 3.5 - 5.1 mmol/L 03/10/2024 6:58 PM T [facility] Chloride 105 98 - 109 mmol/L 03/10/2024 6:58 PM T [facility] CO2 24 20 - 29 mmol/L 03/10/2024 6:58 PM T [facility] Anion Gap 12 6 - 16 mmol/L 03/10/2024 6:58 PM T [facility] Calcium 9.7 8.4 - 10.4 mg/dL 03/10/2024 6:58 PM T [facility] BUN 12 7 - 26 mg/dL 03/10/2024 6:58 PM CDT [facility] Creatinine 0.75 0.55 - 1.02 mg/dL 03/10/2024 6:58 PM T [facility] Glucose 108(H) 70 - 100 mg/dL 03/10/2024 6:58 PM T [facility] Comment:The given reference range is for the fasting state. Non-fasting reference range for glucose is 70 - 180 mg/dL. GFR, Estimated >60 >60 mL/min/1.7 3m2 03/10/2024 6:58 PM T [facility] Hours Fasting 0.0 8 - 12 Hours 03/10/2024 6:58 PM [facility] Blood Venipuncture / Unknown 03/10/2024 1:17 PM CDT 03/10/2024 1:17 PM CDT Megan Siddiqui MD LAB_1 [facility] [address] [place] [address]R[place] documented in this encounter Visit Diagnoses Diagnosis Essential hypertension (HRC) Unspecified essential hypertension Hypercholesteremia Pure hypercholesterolemia documented in this encounter Care Teams Cafeteria Supervisor Relationship Specialty Start Date End Date Zoe Auguste APRN, SIEVE MAKER [address] [place] [address] PCP - General 05/05/13 documented as of this encounter
--- OUTSIDE RECORDS SUMMARY | 2024-04-02 10:14 | XMS_ITS | Encounter Summary ---
Author Organization [facility] Address [address] [place] [address] Support Name Relationship Address Phone Jae Sales Emergency Contact [address] [place] [address] Declined 08/30 Emergency Contact Unknown Unavaila ble Care Team Providers Care Welding Manager Name Role Phone MolinaZoe APRN, [employer]ER[employer] INSULATION SUPERVISOR Primary Care Provider Reason for Referral * Procedure/Equipment (Routine) - Incomplete Specialty Diagnoses / Procedures Referred By Contac t Referred To Contact Diagnoses Neck pain Procedures XR Cervical Spine 1 View Megan Siddiqui MD [address] [place] [address] Referral ID Status Reason Start Date Expiration Date V isits Requested Visits Authorized [id number] Incomplete 02/26/2024 05/27/2025 1 1 * Medication Prior Authorization - Closed Specialty Diagnoses / Procedures Referred By Contac t Referred To Contact Megan Siddiqui MD [address] [place] [address] Referral ID Status Reason Start Date Expiration Date Visits Re quested Visits Authorized [id number] Closed 1 1 Reason for Visit * Reason Comments Follow-up Encounter Details Date Type Department Care Team (Late st Contact Info) Description 02/26/2024 1:00 PM CDT Office Visit [facility] [address] Cardiology [address] [place] [phone] Megan Siddiqui MD [address] [place] [address] Essential hypertension (HRC) (Primary Dx); Neck pain; Dilated cardiomyopathy (HRC); Hypercholesterolemia; LBBB (left bundle branch block) Social History Tobacco Use Types Packs/Day Years [...] on file documented as of this encounter Last Filed Vital Signs Vital Sign Reading Time Taken Comments Blood Pressure 146/73 02/26/2024 12:59 PM CDT Pulse 62 02/26/2024 12:59 PM CDT Temperature - - Respiratory Rate - - Oxygen Saturation - - Inhaled Oxygen Concentration - - Weight 94.4 kg (208 lb 3.2 oz) 02/26/2024 12:59 PM CDT Height 160 cm (5' 3) 02/26/2024 12:59 PM CDT Body Mass Index 36.88 02/26/2024 12:59 PM CDT documented in this encounter Patient Instructions * Patient Instructions* Megan Siddiqui MD - 02/26/2024 1:00 PM CDT Images from the original note were not included. Dear Lawrencepebbles This is my recommendation for you: MEDICATIONS: No change Xray of the neck ordered. LABS: [facility] FOLLOW UP: 1 year CONTACT INFORMATION: Please call at [phone] (Ms Linda Bell RN) if you have any routine question between 8 AM and 5 PM. If you have any urgent question between 5 PM to 8 AM and also over the weekends and holidays, please call at [phone] ([facility] care line) If you have any symptom which needs immediate attention, please go to the urgent care or ER depending on your concern. It is my pleasure taking care of you. Megan Siddiqui MD Hull Line Crew Member eating disorder specialist [facility] [place] [address], [employer] [place] [address] documented in this encounter Progress Notes * Megan Siddiqui MD - 02/26/2024 1:00 PM CDT Images from the original note were not included. Cardiology Note 02/26/2024 Ms. Pamela Sales is a very pleasant 78 y.o. female, was seen in cardiology on 02/26/2024. Ms Sales is a very pleasant 78 y.o. who has a cardiomyopathy. Her cardiomyopathy was initially diagnosed in 2010 when she presented to the hospital on May 2011. In that note it was mentioned thatshe presented because of shortness of breath and her ejection fraction demonstrated EF of 30%. Her electrocardiogram demonstrated left bundle branch block pattern. She had a coronary angiogram in 2010, which did not show any evidence of flow-limiting coronary artery disease. On May 2013, she was diagnosed with invasive ductal carcinoma of the right breast. She underwent a lumpectomy. She underwent adjuvant chemotherapy, along with Herceptin. She received 6 cycles of chemotherapy. She initially underwent lumpectomy of the right breast in April 2013. The pathology analysis revealed a grade 3 invasive carcinoma. Three lymph nodes were sampled and were negative. This was a triple positive tumor. She was staged as TX-N1-MX. She received 6 cycles of chemotherapy and then received Herceptin. She also underwent bilateral mastectomies with reconstruction. She could not tolerate Arimidex because of emotional lability. She was complaining of shortness of breath and had an echocardiogram on April 27, 2014 demonstrating a left ventricular ejection fraction of 25%. Her last dose of Herceptin was in March 2014. Once she was noted to have reduced LV function, her Herceptin was discontinued. Fortunately, her ejection fraction is now at 45-50%. She has underlying left bundle branch block. MEDICAL HISTORY 1. Nonischemic cardiomyopathy. 2. Underlying left bundle branch block with wide QRS complex. 3. Essential hypertension. 4. Malignant neoplasm of the breast, she underwent bilateral mastectomies, chemotherapy as well as a Herceptin. SURGICAL HISTORY: BREAST BIOPSY BREAST RECONSTRUCTION HX APPENDECTOMY HYSTERECTOMY 04/07/2017 Davinci assisted supracervical hysterectomy INCONTINENCE SURGERY 04/07/2017 Midurethral sling MASTECTOMY 11/22 bilateral SALPINGO-OOPHORECTOMY Bilateral 04/07/2017 VAGINAL PROLAPSE REPAIR 04/07/2017 Davinci assisted sacrocolpopexy, enterocele repair, posterior repair (mod 22) Open reduction and internal fixation of right proximal femur fracture with intramedullary nail. Done on August 27, 2019 MEDICATIONS: Reviewed. carvedilol (COREG) 6.25 MG tablet Take 1 tab (6.25 mg) in the morning; Take 2 tabs (12.5 mg) in theevening. Indications: cardiomyopathy LORazepam (ATIVAN) 0.5 MG tablet Take 1 Tablet (0.5 mg) by mouth every 12 hours as needed for Anxiety. losartan (COZAAR) 25 MG tablet Take 1 tablet by mouth once daily FAMILY HISTORY: Maternal grandmother and her mother both at age 71. They were found down and no autopsy was done. SOCIAL HISTORY: She is . She does not smoke or drink. PHYSICAL EXAMINATION: VS: Blood pressure (!) 146/73, pulse 62, height 5' 3 (160 cm), weight 208 lb 3.2 oz (37076 g). Head, Eyes, ENT: Unremarkable. Oropharynx normal. NECK: Supple. No carotid bruit. Normal jugular venous pressure. CHEST: Clear to auscultation. CARDIOVASCULAR: Regular rate and rhythm. No murmur, rub or gallop. ABDOMEN: Soft, nontender. EXTREMITIES: No cyanosis, clubbing, edema. NEUROLOGIC: Nonfocal. PSYCHIATRIC: Alert and oriented x3. DIAGNOSTIC STUDIES : Echocardiogram done on August 2022 Technically Difficult study Left ventricular ejection fraction is visually estimated at 45%. apical anterior hypokinesis. Abnormal septal motion consistent with left bundle branch block. Mild mitral regurgitation. Pulmonary artery systolic pressure estimate is 25mmHg above RAP. Compared to the prior study. LVEF appears similar. ASSESSMENT : 1. Nonischemic cardiomyopathy: She is on carvedilol and losartan. Her left ventricular function is nearly normal at 45- 50% with abnormal septal motion consistent with left bundle branch block. She had coronary angiogram in 2010 showing normal coronary arteries. She does not tolerate up titrating of her carvedilol. She feels fatigued and tired. There were multiple attempts in the past to up titrate beta-juhi. 2. Hypercholesterolemia with low HDL: Exercise to improve HDL and dietary guidelines were discussedwith her. She mentioned that she is not keen on initiating another medication for cholesterol. RECOMMENDATION AND DISCUSSION : Continue current management. She is scheduled to undergo an echocardiogram in May 30, 2024 It was a pleasure seeing . Pamela Sales in cardiovascular clinic. Should you have any question regarding her care, please do not hesitate to contact me. Thanks again. Megan Siddiqui MD Staff Precision Instrument And Tool Maker [facility] [place] Total time: 25 minutes including review of the chart and detail medical record, discussion of symptoms, differential diagnosis of symptoms, education regarding underlying medical conditions, diagnostic approach, review of studies, further evaluations, therapeutic choices, their rationale, and actions to take if additional problems are encountered and also based on complexity. documented in this encounter Plan of Treatment Upcoming Encounters Date Type Department Care Team (Late st Contact Info) Description 05/25/2024 11:00 AM CDT Appointment [facility] [address] Noninvasive Cardiology [address] [place] [address] documented as of this encounter Results * XR Cervical Spine [...] Megan Siddiqui MD RAD GD * (ABNORMAL) Basic Metabolic Panel (03/10/2024 1:17 PM CDT) Sodium 141 136 - 145 mmol/L 03/10/2024 6:58 PM [facility] Potassium 4.2 3.5 - 5.1 mmol/L 03/10/2024 6:58 PM [facility] Chloride 105 98 - 109 mmol/L 03/10/2024 6:58 PM [facility] CO2 24 20 - 29 mmol/L 03/10/2024 6:58 PM [facility] Anion Gap 12 6 - 16 mmol/L 03/10/2024 6:58 PM [facility] Calcium 9.7 8.4 - 10.4 mg/dL 03/10/2024 6:58 PM [facility] BUN 12 7 - 26 mg/dL 03/10/2024 6:58 PM [facility] Creatinine 0.75 0.55 - 1.02 mg/dL 03/10/2024 6:58 PM [facility] Glucose 108(H) 70 - 100 mg/dL 03/10/2024 6:58 PM [facility] Comment:The given reference range is for the fasting state. Non-fasting reference range for glucose is 70 - 180 mg/dL. GFR, Estimated >60 >60 mL/min/1.7 3m2 03/10/2024 6:58 PM [facility] Hours Fasting 0.0 8 - 12 Hours 03/10/2024 6:58 PM [facility] Blood Venipuncture / Unknown 03/10/2024 1:17 PM CDT 03/10/2024 1:17 PM T Megan Siddiqui MD LAB_1 [facility] [address] [place] [address] documented in this encounter Visit Diagnoses Diagnosis Essential hypertension (HRC)- Primary Unspecified essential hypertension Neck pain Cervicalgia Dilated cardiomyopathy (HRC) Other primary cardiomyopathies Hypercholesterolemia Pure hypercholesterolemia LBBB (left bundle branch block) Other left bundle branch block Hypercholesteremia- Primary Pure hypercholesterolemia Neck pain Cervicalgia documented in this encounter Care Teams Welding Manager Relationship Specialty Start Date End Date Zoe Auguste, FACILITIES MANAGEMENT EXECUTIVE, MINERAL WOOL INSULATION SUPERVISOR [address] [place] [address] PCP - General 05/05/13 documented as of this encounter
== END 2024-04-02 10:12 | disposition home or self-care (01) ==
LOC: LKVREF 10:12
PROVIDERS: Visit Provider Family Medicine
DX: Z01.818 Encounter for other preprocedural examination (principal)
CPT/HCPCS: 80048

== ENCOUNTER 2024-12-07 22:13 | Observation (INO) | payer MEDICARE, SELFPAY ==
--- OUTSIDE RECORDS SUMMARY | 2024-12-07 22:15 | XMS_ITS | Clinical Summary ---
Author Organization [employer] [facility] [employer] Address [address] [place] [address] Care Team Providers Care Transitions Manager Rn Name Role Phone Unavailable Primary Care Provider Unavailabl e Allergies Active Allergy Reactions Criticality Noted Date Comments Dionicio Inhibitors Cough 02/06/2021 Medications calcium citrate-vitamin d 315 mg-200 unit 315 mg-5 mcg (200 unit) tablet Take 1 Tablet by mouth. 0 Active carvediloL (COREG) 6.25 mg tablet TAKE 1 TABLET BY MOUTH IN THE MORNING AND 1 & 1/2 (ONE & ONE-HALF) IN THE EVENING 1 Active LORazepam (ATIVAN) 0.5 mg tab Take 0.5 mg by mouth every 12 hours if needed. 1 Active medication order composer PLEXUS 0 1 Active predniSONE (DELTASONE) 20 mg tabletIndications:P rimary osteoarthritis of both knees 2 po q am 10 Tablet 1 Active famotidine (PEPCID) 20 mg tabletIndications:H iatal hernia Take 1 Tablet (20 mg) by mouth 2 times daily. 90 Tablet 3 1 Active losartan (COZAAR) 25 mg tabletIndications:E ssential hypertension Take 1 Tablet (25 mg) by mouth once daily. 30 Tablet 2 Active Active Problems Problem Noted Date Diagnosed Date H/O bilateral mastectomy 01/10/2021 Insomnia 01/10/2021 Elevated hemoglobin 01/10/2021 Chronic constipation 01/10/2021 Sliding hiatal hernia 07/09/2017 Hx of colonic polyp 11/18/2012 LBBB (left bundle branch block) 03/09/2012 Obesity, Class II, BMI 35-39.9 03/09/2012 Overview (02/06/2021): Obesity, unspecified Cardiomyopathy 05/19/2011 Overview (02/06/2021): Her cardiomyopathy was initially diagnosed in 2010 [...] ELEVATED BP W/O HTN 05/10/2002 02/06/2021 Immunizations Immunization Administration Dates Next Due Tdap 01/10/2021 Family [...] Paying Living Expenses Not on file 08/06/2021 Comments Unknown Sex and Gender Information Value Date Recorded Sex Assigned at Not on file Legal Sex Female 5:37 AM PIN STICKER Gender Identity Not on file Sexual Orientation Not on file Obstetrics History Last Filed Vital Signs Vital Sign Reading Time Taken Comments Blood Pressure 120/62 02/09/2021 10:58 AM CDT Pulse 76 02/09/2021 10:58 AM CDT Temperature 36.3 C (97.3 F) 06/06/2005 12:00 AM CDT Respiratory Rate 18 06/01/2007 11:27 AM CDT [...] on same day) for age 18+ 1961 Pneumococcal series for age 50+ (1 of 1 - PCV) 993 Zoster (shingles) series for age 50+ (1 of 2) 05/15/19 93 DEXA/DXA scan for age 65+ 2008 Medicare Wellness for age 65+ 2008 RSV vaccine for adults or pr egnancy (1 - 1-dose 75+ series) 2018 COVID-19 vaccine series ( - season) Influenza Vaccine (Season Ended) 2025 Tetanus booster 01/10/2031 01/10/2021 Tdap Completed 01/10/2021 Insurance [id number] [address] [id number] [employer] CHOICE PPO MR
--- OUTSIDE RECORDS SUMMARY | 2024-12-07 22:16 | XMS_ITS | Encounter Summary ---
Author Organization Replaced by [facility] Address [address] [place] [address] Support Name Relationship Address Phone Jae Sales Emergency Contact [address] [place] [address] Declined 08/30 Emergency Contact Unknown Unavaila ble Care Team Providers Care First Line Supervisor Name Role Phone Zoe Auguste APRN, CNP Primary Care Provider Encounter Details Date Type Department Care Team (Late Contact Info) Description 11/05/2024 8:40 AM CDT Lab Visit [facility] [address] [place] [address] Epigastric pain; Screening for diabetes mellitus; Essential hypertension (HRC); Chronic constipation; Peripheral polyneuropathy; Prediabetes Social History Tobacco Use Types Packs/Day Years Used Date Smoking Tobacco: Never Smokeless Tobacco: Never Alcohol Use Standard Drinks/Week Comments No 0 (1 standard drink = 0.6 oz pur e alcohol) PHQ-2 Answer Date Recorded PHQ-2 Score 0 01/10/2021 Comments No Sex and Gender Information Value Date Recorded Sex Assigned at Not on file Legal Sex Female 6:14 PM CDT Gender Identity Not on file Sexual Orientation Not on file 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 [address] Galdino Longoria MD [address] [place] [address] 12/21/2024 1:40 PM CDT Appointment Otolaryngology at [facility] and Specialty [address] [place] [phone] Rajesh Mendes PA-C [address] [place] [address] documented as of this encounter Procedures Procedure Name Priority Date/Time Associated Diagnosis Comments VITAMIN B6 (8HR FAST RECOMMENDED) Routine 11/05/2024 8:51 AM CDT Peripheral polyneuropathy CREATININE / GFR Routine 11/05/2024 8:51 AM CDT Epigastric pain COMPLETE BLOOD COUNT-NO DIFF Routine 11/05/2024 8:51 AM CDT Epigastric pain ELECTROLYTE PANEL Routine 11/05/2024 8:5 1 AM CDT Essential hypertension (HRC) MAGNESIUM Routine 11/05/2024 8:51 AM CDT Chronic constipation TSH, SENSITIVE (WITH REFLEX) Routine 11/05/2024 8:51 AM CDT Peripheral polyneuropathy Prediabetes HGB A1C Routine 11/05/2024 8:51 AM CDT Screening for diabetes mellitus FOLATE ONLY (4HR FAST RECOMMENDED) Routine 11/05/2024 8:51 AM CDT Peripheral polyneuropathy VITAMIN B12 ONLY Routine 11/05/2024 8:51 AM CDT Peripheral polyneuropathy documented in this encounter Results * Folate Only (4Hr Fast Recommended) (11/05/2024 8:51 AM CDT) Pathologist [facility] Folate 10.0 >=7.0 ng/mL 11/05/2024 3:20 PM CDT [facility] Blood Venipuncture / Unknown 11/05/2024 8:51 AM CDT 11/05/2024 8:51 AM CDT Zoe Auguste APRN, ENDOCRINOLOGY SPECIALIST LAB_1 Final R esult Performing Organization Address [facility] de Phone Number [facility] [address] [place] [address] * B12 Only (11/05/2024 8:51 AM CDT) Pathologist [facility] Vitamin B12 297 213 - 816 pg/mL 11/05/2024 3:11 PM CDT [facility] Blood Venipuncture / Unknown 11/05/2024 8:51 AM CDT 11/05/2024 8:51 AM CDT Zoe Auguste APRN, ENDOCRINOLOGY SPECIALIST LAB_1 Final R esult Performing Organization Address [facility] Phone Number [facility] [address] [place] [address] * Vitamin B6 (8Hr Fast Recommended) (11/05/2024 8:51 AM CDT) Pathologist [facility] Vitamin B6 73.4 20.0 - 125.0 nmol/L 11/09/2024 4:00 PM CDT [place] Comment: INTERPRETIVE INFORMATION: Vitamin B6 (Pyridoxal 5-Phosphate) Pyridoxal 5'-phosphate measured in a specimen collected following an 8-hour or overnight fast accurately indicates vitamin B6 nutritional status. Non-fasting specimen concentration reflects recent vitamin intake. This test was developed and its performance characteristics determined by [employer]. It has not been cleared or approved by the [place] Food and Drug Administration. This test was performed in a CLIA certified laboratory and is intended for clinical purposes. Performed By: [employer] [address] [place] [address] Rf Test Technician: Patrick Locke MD, PhD CLIA Number: [id number] Blood Venipuncture / Unknown 11/05/2024 8:51 AM CDT 11/05/2024 8:51 AM CDT Zoe Auguste APRN, CNP LAB_1 Final R esult Performing Organization Address City/[facility] Co de Phone Number [facility] [employer] [address] [place] [address] [place] [address] * TSH with Free T4 (if TSH Abnormal) (11/05/2024 8:51 AM CDT) TSH, Reflex 3.70 0.30 - 4.50 uIU/mL 11/05/2024 3:05 PM CDT [facility] Blood Venipuncture / Unknown 11/05/2024 8:51 AM CDT 11/05/2024 8:51 AM CDT Zoe Auguste APRN, CNP LAB_1 Final R esult Performing Organization Address [facility] Co de Phone Number [facility] [address] [place], [place] [address] * Magnesium (11/05/2024 8:51 AM CDT) Magnesium 1.9 1.6 - 2.6 mg/dL 11/05/2024 9:24 AM CDT [facility] Blood Venipuncture / Unknown 11/05/2024 8:51 AM CDT 11/05/2024 8:51 AM CDT Zoe Auguste APRN, CNP LAB_1 Final R esult Performing Organization Address City/[facility]/ZIP Co de Phone Number [facility] [address] [place] [address], [facility] * Electrolyte Panel (11/05/2024 8:51 AM CDT) [facility] Sodium 138 136 - 145 mmol/L 11/05/2024 9:24 AM [facility] Potassium 4.4 3.5 - 5.1 mmol/L 11/05/2024 9:24 AM [facility] Chloride 105 98 - 109 mmol/L 11/05/2024 9:24 AM [facility] CO2 22 20 - 29 mmol/L 11/05/2024 9:24 AM T [facility] Anion Gap 11 6 - 16 mmol/L 11/05/2024 9:24 AM [facility] Blood Venipuncture / Unknown 11/05/2024 8:51 AM CDT 11/05/2024 8:51 AM CDT us Zoe Auguste BAKED AND GRAPHITE INSPECTOR, ENDOCRINOLOGY SPECIALIST LAB_1 Final R esult Performing Organization Address City/State/[facility] Co de Phone Number [facility] [address] [place] [address] * (ABNORMAL) Complete Blood Count-No Diff (11/05/2024 8:51 AM CDT) [facility] WBC 6.1 3.5 - 10.5 x10(9)/L 11/05/2024 9:34 AM [facility] RBC 5.16(H) 3.90 - 5.03 x10(12)/L 11/05/2024 9:34 AM [facility] Hemoglobin 17.7(H) 12.0 - 15.5 g/dL 11/05/2024 9:34 AM [facility] HCT 49.1(H) 34.9 - 44.5 % 11/05/2024 9:34 AM [facility] MCV 95.2 80.0 - 100.0 fL 11/05/2024 9:34 AM [facility] MCH 34.3(H) 27.6 - 33.3 pg 11/05/2024 9:34 AM [facility] MCHC 36.0(H) 31.5 - 35.2 g/dL 11/05/2024 9:34 AM [facility] RDW 11.6(L) 11.9 - 15.5 % 11/05/2024 9:34 AM T [facility] Platelets 204 150 - 450 x10(9)/L 11/05/2024 9:34 AM T [facility] Automated NRBC 0 <=0 /100 WBC 11/05/2024 9:34 AM T [facility] Blood Venipuncture / Unknown 11/05/2024 8:51 AM CDT 11/05/2024 8:51 AM CDT Zoe Auguste APRN, ENDOCRINOLOGY SPECIALIST LAB_1 Final R esult Performing Organization Address [facility] Co de Phone Number [address] [phone] * Hgb A1C (11/05/2024 8:51 AM CDT) Hemoglobin A1C (Rapid) 5.5 <=5.6 % 11/05/2024 10:02 AM T [facility] Estimated Average Glucose (Calc) 111 < 117 mg/dL 11/05/2024 10:02 AM [facility] Comment:Estimated average gl ucose (eAG) converts A1c into glucose units (mg/dL) and estimates average glucose over the past approximately 3 months. The eAG reference interval (<117 mg/dL) corresponds to an A1c of <5.7%. Blood Venipuncture / Unknown 11/05/2024 8:51 AM CDT 11/05/2024 8:51 AM CDT Narrative [facility] - 11/05/2024 10:02 AM CDT The test method used for this Hemoglobin A1c result can experience interference from elevated hemoglobin and other hemoglobin variants. In patients with results that do not correlate clinically, contact the lab for further direction. Zoe Auguste APRN, JESSICA LAB_1 Final R esult Performing Organization Address [facility]/ZIP Co de Phone Number [address] [phone] * Creatinine / GFR (11/05/2024 8:51 AM CDT) Creatinine 0.73 0.55 - 1.02 mg/dL 11/05/2024 9:24 AM CDT [facility] GFR, Estimated >60 >60 mL/min/1.7 3m2 11/05/2024 9:24 AM CDT [facility] Blood Venipuncture / Unknown 11/05/2024 8:51 AM CDT 11/05/2024 8:51 AM CDT us Zoe Auguste APRN, CNP LAB_1 Final R esult [facility] [address] [place] [address], [facility] documented in this encounter Visit Diagnoses Diagnosis Epigastric pain Abdominal pain, epigastric Screening for diabetes mellitus Essential hypertension (HRC) Unspecified essential hypertension Chronic constipation Unspecified constipation Peripheral polyneuropathy Unspecified hereditary and idiopathic peripheral neuropathy Prediabetes Other abnormal glucose documented in this encounter Care Teams First Line Supervisor Relationship Specialty Start Date End Date Zoe Auguste APRN, JESSICA [address] [place] [id number] PCP - General 05/05/13 documented as of this encounter
--- OUTSIDE RECORDS SUMMARY | 2024-12-07 22:16 | XMS_ITS | Encounter Summary ---
Author Organization [facility] Address [address] [place] [address] Support Name Relationship Address Phone Jae Sales Emergency Contact [address] [place] [address] Declined 08/30 Emergency Contact Unknown Unavaila ble Care Team Providers Care District Gauger Name Role Phone Zoe Auguste APRN, CONCRETE PAVER Primary Care Provider Encounter Details Date Type Department Care Team (Late Contact Info) Description 11/10/2024 Results Follow-Up [facility] [address] [place] [address] Sophie Juarez APRN, CONCRETE PAVER [address] [place] [phone] Social History Tobacco Use Types Packs/Day Years [...] Care Team (Late st Contact Info) Description 12/15/2024 11:30 AM CDT Appointment Dania Mayra Lauren [address] Radiology [place] [address] [place] [phone] Zoe Auguste APRN, CONCRETE PAVER [address] [place] [address] 12/17/2024 9:15 AM CDT Appointment [facility]- Plastic Surgery [address] [facility] [place] [address] Galdino Longoria MD 5400 [place], [place] [address] 12/21/2024 1:40 PM CDT Appointment Otolaryngology at [facility] and Specialty [facility] [address] [place] [address] [place] [phone] Rajesh Mendes PA-C 3800 [place], [place] [address] documented as of this encounter Results * Erythropoeitin (11/25/2024 12:16 PM CDT) [facility] Erythropoietin 12 4 - 27 mU/mL 11/27/2024 4:03 AM CDT [facility] Comment: INTERPRETIVE INFORMATION: Erythropoietin Normal serum concentrations of erythropoietin for 95% of individuals with normal hematocrits range from 4-27 mU/mL. As the hematocrit is lowered by iron deficiency, aplastic, or hemolytic anemia, the concentration of erythropoietin increases as shown in the graph below. In the absence of anemia, elevated concentrations are seen in renal tumors, as a manifestation of renal transplant rejection, and in secondary polycythemia. Low values may be observed in hemochromatosis. Expected Erythropoietin Concentrations in Patients with Uncomplicated Anemia Erythropoietin (mU/mL) 100,000 - + + 10,000 - +....... + ....... 1,000 - + ....... + ........ 100 - + ........ + ........ 10 - + ........ +---+---+---+---+---+---+ 10 20 30 40 50 60 70 (Hematocrit %) (Contributions To Nephrology 1988:66:54-62) Decreased erythropoietin concentrations with an elevated hematocrit are observed in patients with polycythemia rubra vera, and with a decreased hematocrit in patients with HIV infection who are receiving AZT. Patients on AZT who have anemia and erythropoietin concentrations of less than or equal to 500 mU/mL may benefit from therapy with recombinant EPO ([facility] [id number],1989). Performed By: [facility] [address] [place] [address] Clay Maker: Patrick Locke MD, PhD CLIA Number: [id number] Blood Venipuncture / Unknown 11/25/2024 12:16 PM CDT 11/25/2024 12:16 PM CDT us Zoe Auguste APRN, CNP LAB_1 Final R esult [facility] [address] [place], [place] [address] [place] [address] documented in this encounter Visit Diagnoses Diagnosis Elevated hemoglobin (HRC)- Primary Other hemoglobinopathies documented in this encounter Care Teams District Gauger Relationship Specialty Start Date End Date Zoe Auguste APRN, CNP [address] [address] [place] [address] PCP - General 05/05/13 documented as of this encounter
--- OUTSIDE RECORDS SUMMARY | 2024-12-07 22:16 | XMS_ITS | Encounter Summary ---
Author Organization [facility] Address [address] [place] [address] Support Name Relationship Address Phone Jae Sales Emergency Contact [address] [place] [address] Declined 08/30 Emergency Contact Unknown Unavaila ble Care Team Providers Care Timber Mill Worker Name Role Phone Zoe Auguste APRN, JESSICA Primary Care Provider Encounter Details Date Type Department Care Team (Late Contact Info) Description 11/28/2024 Results Follow-Up [facility] [address] [place], [place] [phone] Zoe Auguste APRN, PRIMARY HEALTH CARE NURSE [address] [place] [phone] Social History Tobacco Use Types Packs/Day Years [...] 11:30 AM CDT Appointment Dania Mayra Lauren [address] [address] [place] [address] [place] [phone] Zoe Auguste APRN, PRIMARY HEALTH CARE NURSE [address] [place] [address] 12/17/2024 9:15 AM CDT Appointment [facility]- Plastic Surgery [address] [facility] [place] [address] Galdino Longoria MD 5400 [place] [address] 12/21/2024 1:40 PM CDT Appointment Otolaryngology at [facility] and Specialty [facility] [address] [place] [address] [facility] [place] [phone] Rajesh Mendes, PA-C 3800 [place] [address] documented as of this encounter Visit Diagnoses Not on filedocumented in this encounter Care Teams Timber Mill Worker Relationship Specialty Start Date End Date Zoe Auguste APRN, PRIMARY HEALTH CARE NURSE [address] [place] [address] PCP - General 05/05/13 documented as of this encounter
--- OUTSIDE RECORDS SUMMARY | 2024-12-07 22:16 | XMS_ITS | Encounter Summary ---
Author Organization [facility] Address [address] [place] [address] Support Name Relationship Address Phone Jae Sales Emergency Contact [address] [place] [address] Declined 08/30 Emergency Contact Unknown Unavaila ble Care Team Providers Care Heavy Equipment Diesel Mechanic Name Role Phone Zoe Auguste APRN, CNP Primary Care Provider Reason for Referral * Procedure/Equipment (Routine) - Pending Review Specialty Diagnoses / Procedures Referred By Ever t Referred To Contact Diagnoses Pain of both breasts Presence of breast implant H/O bilateral mastectomy Procedures MR Breast Bilat Implants W/WO IV Cont Zoe Auguste APRN, CNP [address] [place] [address] Phone: tel: fax: Referral ID Status Reason Start Date Expiration Date V isits Requested Visits Authorized [id number] Pending Review 12/07/2024 03/08/2026 1 1 Reason for Visit * Reason Comments Nurse Return Call Request Encounter Details Date Type Department Care Team (Late st Contact Info) Description 12/07/2024 Telephone [facility] [address] [place] [address] Zoe Auguste APRN, CNP [address] [place] [address] Nurse Return Call Request Social History Tobacco Use Types Packs/Day Years [...] as of this encounter Nursing Notes * Mylene Marcos RN - 12/07/2024 3:30 PM CDT Clinician: Review and advise, Route to [facility], and [facility] Patient/urgent care request: New medication Specific Request: Requesting oral sedation medication Scheduling from Radiology stated that pt needs oral sedation for breat MRI. Please prescribe Ativanand valium * Zoe Auguste APRN, JESSICA - 12/07/2024 1:20 PM CDT I am going to forward this to Swati in plastic surgery. I spoke with a colleague from oncology,and they advised ordering the MRI of the breast in light of Pamela's breast pain, mastectomy, and implant history. * Makenna Souza RN - 12/07/2024 12:32 PM CDT Clinician: Review and advise Patient/urgent care request: Input needed: imaging Specific Request: Patient is aware that MRI has been ordered, states she was told by plastic surgery it needed to be US. Patient would like to make sure Zoe would like her to get an MRI and not US. Patient called and wanted to know what Zoe ordered, policy writer let patient know it was an MRI that was ordered. Patient wanted to make sure that Zoe ordered it because she was told from Plastic Surgery that it was US that was needed and would just like to double check with Zoe that she get MRIvs US. * Linda Nath LPN - 12/07/2024 12:00 PM CDT Pt informed. Pt states she does not need anything for claustrophobia. She asked about cost and ins coverage. Informed her that radiology will be able to answer her questions. Pt then changed her mindabout meds for claustrophobia as she remembers taking something for it that last time she had a scan. * Zoe Auguste APRN, AUTO BODY REPAIR TEACHER - 12/07/2024 11:56 AM CDT MRI of breasts ordered. Does she need to take anything for claustrophobia? * Cira Balderrama - 12/07/2024 11:11 AM CDT Pt would like a call back as she needs an order for an ultrasound for her breast. documented in this encounter Plan of Treatment Upcoming Encounters Date Type Department Care Team (Late st Contact Info) Description 12/15/2024 11:30 AM CDT Appointment Dania [place] [address] Radiology MRI [address] [place] [phone] Zoe Auguste, LEATHER SKINNER, AUTO BODY REPAIR TEACHER [address] [place] [address] 12/17/2024 9:15 AM CDT Appointment [facility]- Plastic Surgery [address] [facility] [place], [place] [phone] Galdino Longoria MD 5400 [place], [place] [address] 12/21/2024 1:40 PM CDT Appointment Otol[facility]ology at [facility] [place] [address] [place] [address] [place] [phone] Rajesh Mendes PA-C [address]26 [place], [place] [phone] Scheduled Orders Name Type Priority Associated Diagnoses Orde r Schedule MR Breast Bilat Implants W/WO IV Cont Imaging New Routine Pain of both breasts Presence of breast implant H/O bilateral mastectomy Expected: 12/07/2024 (Approximate), Expires: 12/07/2025 documented as of this encounter Visit Diagnoses Diagnosis Pain of both breasts- Primary Presence of breast implant H/O bilateral mastectomy Acquired absence of breast and nipple documented in this encounter Care Teams Heavy Equipment Diesel Mechanic Relationship Specialty Start Date End Date Zoe Auguste, LEATHER SKINNER, AUTO BODY REPAIR TEACHER [address] [place] [address] PCP - General 05/05/13 documented as of this encounter
--- OUTSIDE RECORDS SUMMARY | 2024-12-07 22:16 | XMS_ITS | Encounter Summary ---
Author Organization [facility] Address [address] [place] [address] Support Name Relationship Address Phone Jae Sales Emergency Contact [address] [place] [address] Declined 08/30 Emergency Contact Unknown Unavaila ble Care Team Providers Care Timber Robber Name Role Phone Zoe Auguste APRN, CHILDREN COUNSELOR Primary Care Provider Encounter Details Date Type Department Care Team (Late Contact Info) Description 11/09/2024 E-Visit [facility] [address] [place], [place] [phone] Zoe Auguste APRN, CHILDREN COUNSELOR [address] [place] [phone] Social History Tobacco Use Types Packs/Day Years [...] 11:30 AM CDT Appointment Dania Mayra Lauren [address] [place] [address] [place] [phone] Zoe Auguste APRN, CHILDREN COUNSELOR [address] [place] [address] 12/17/2024 9:15 AM CDT Appointment [facility]- Plastic Surgery 5400 [facility] [place] [address] Galdino Longoria MD 5400 [place] [address] 12/21/2024 1:40 PM CDT Appointment Otolaryngology at [facility] and Specialty [facility] [address] [place] [address] [place] [phone] Rajesh Mendes, PA-C 3800 [place] [address] documented as of this encounter Visit Diagnoses Not on filedocumented in this encounter Care Teams Timber Robber Relationship Specialty Start Date End Date Zoe Auguste APRN, CHILDREN COUNSELOR [address] [place] [address] PCP - General 05/05/13 documented as of this encounter
--- OUTSIDE RECORDS SUMMARY | 2024-12-07 22:16 | XMS_ITS | Encounter Summary ---
Author Organization [facility] Address [address] [place] [address] Support Name Relationship Address Phone Jae aSles Emergency Contact [address] [place] [address] Declined 08/30 Emergency Contact Unknown Unavaila ble Care Team Providers Care Broomcorn Sorter Name Role Phone Zoe Auguste APRN, CNP Primary Care Provider Reason for Visit * Reason Onset Date Comments Phone Visit 12/02/2024 Encounter Details Date Type Department Care Team (Late st Contact Info) Description 12/02/2024 9:00 AM CDT Phone Visit [facility] [address] [place], [place] [phone] Zoe Auguste APRN, CNP [address] [place] [address] Chronic constipation (Primary Dx); Elevated hemoglobin (HRC); Epigastric pain; Sliding hiatal hernia; Breast pain Social History Tobacco Use Types Packs/Day [...] on file documented as of this encounter Patient Instructions * Patient Instructions* Zoe Auguste APRN, CNP - 12/02/2024 9:00 AM CDT Increase water intake to 4 bottles or 64 oz+ per day. Try taking 1-2 capfuls of miralax daily for constipation. Add colace 100 mg twice daily. The stool softener, colace, will only work if you drink enough water during the day. Consider doing a bowel prep to reset the bowel. Call if constipation not improved with above plan. Consider the [employer] savings program. There is additional information on their website. documented in this encounter Progress Notes * Zoe Auguste APRN, CNP - 12/02/2024 9:00 AM CDT Subjective: Today's visit with Pamela, an 79 year old female, was conducted by audio-only because, although theclinician was capable of completing the visit through an interactive telecommunications system, thepatient either did not give consent or was not capable of using video technology. Incapability alsoincludes the patient losing access to video technology during a video visit. Pamela has a medical hi story of hypertension, hyperlipidemia, dilated cardiomyopathy, chronic constipation, colon polyps, diverticulosis, peripheral neuropathy, BPPV, and breast cancer s/p bilateral mastectomy and reconstruction. Is s/p cholecystectomy, appendectomy, and total hysterectomy. Today's visit is a follow up for abdominal discomfort and constipation. Please see my note from 11/05/24 for further detail. My plan for Pamela was to increase her water intake, with a goal of 64+ oz per day, trial linzess, and continue pantoprazole 40 mg/day. Today, Pamela reports persistent symptoms. Her last episode of discomfort was last night, in the epigastric area. Pamela has been able to correlate her abdominal discomfort with constipation. Unfortunately, the Linzess I prescribed was cost prohibitive. It was around $140 for a month's supply. She has been drinking anywhere between 40-60 oz of water daily. Will try increasing her water intake to 80 oz per day. She is not taking anything specific for her constipation at this time. She has trialed miralax in the past, and this was not effective. She is not certain whether she increased the doseto 2 capfuls or 34 oz per day. She continues to take pantoprazole 40 mg/day for epigastric discomfort. She recalls that the GI clinician at [facility] told her to increase the dose to 2 tabs per day. No overt reflux or heartburn symptoms. Objective: Health Maintenance Due Topic Date Due Medicare Annual Wellness Visit Never done Pneumococcal Vaccine 50+ Yrs (1 of 2 - PCV) Never done Zoster/Shingles Vaccine (1 of 2) Never done RSV Vaccine (1 - 1-dose 75+ series) Never done COVID-19 Vaccine ( - season) Never done Influenza Vaccine (1) Never done BP Readings from Last 1 Encounters: 11/05/24 138/80 Lab Results Component Value Date WBC 6.1 11/05/2024 RBC 5.16 (H) 11/05/2024 Hemoglobin 17.7 (H) 11/05/2024 HCT 49.1 (H) 11/05/2024 MCV 95.2 11/05/2024 RDW 11.6 (L) 11/05/2024 Platelets 204 11/05/2024 Erythropoietin level 11/25/24: 12 (Normal) Assessment/Plan: Chronic constipation - polyethylene glycol 3350 (GLYCOLAX) 17 GM/SCOOP powder; Take 17-34 g by mouth daily. Mix in 4-8 ounces of liquid and drink - docusate sodium (COLACE) 100 MG capsule; Take 1 Capsule (100 mg) by mouth two times a day. - will try increasing water intake to 64+ oz per day, aiming for at least 8 glasses of water per day. Trial 2 capfuls of miralax daily along with colace. Consider doing GI prep to reset bowel. She was asked to contact me if she would like directions for this. Additionally, consider contacting [email or web address] cost savings program if miralax ineffective. Elevated hemoglobin (HRC) - Pamela has had a persistently elevated hemoglobin level. I checked an erythropoietin level, and this was normal. Today, she notes that she sleeps with her mouth open. She is not certain whether shesnores or has apneic episodes at night. She reports feeling rested on waking. Epigastric pain, Sliding hiatal hernia - pantoprazole DR (PROTONIX) 40 MG tablet; Take 1 Tablet (40 mg) by mouth two times a day before meals. - pantoprazole refill sent to pharmacy Breast pain - has been experiencing sharp, intermittent pains in the breasts. Is wondering if this is normal after a reconstruction. This is not bothersome to the point that it disrupts her life or sleep. Discussed this could be nerve pain. Declines medication trial. 40 minutes spent on the patient encounter. This includes time spent in chart review, face to face with the patient, and in documentation. Zoe Auguste APRN, CNP documented in this encounter Plan of Treatment Upcoming Encounters Date Type Department Care Team (Late st Contact Info) Description 12/15/2024 11:30 AM CDT [facility]ment [facility] [address] [place] [address] [place] [phone] Zoe Auguste APRN, CNP [address] [place] [address] 12/17/2024 9:15 AM CDT Appointment [facility]- Plastic Surgery [address] [facility] [place] [address] Galdino Longoria MD 5400 [place] [address] 12/21/2024 1:40 PM CDT Appointment Otolaryngology at [facility] and Specialty [facility] [address] [address] [address] [place] [phone] Rajesh Mendes PA-C 3800 [place] [address] documented as of this encounter Visit Diagnoses Diagnosis Chronic constipation- Primary Unspecified constipation Elevated hemoglobin (HRC) Other hemoglobinopathies Epigastric pain Abdominal pain, epigastric Sliding hiatal hernia Diaphragmatic hernia without mention of obstruction or gangrene Breast pain Mastodynia documented in this encounter Care Teams Broomcorn Sorter Relationship Specialty Start Date End Date Zeo Auguste, SKINNING MACHINE FEEDER, FLIGHT PURSER [address] [place] [address] PCP - General 05/05/13 documented as of this encounter
--- OUTSIDE RECORDS SUMMARY | 2024-12-07 22:16 | XMS_ITS | Encounter Summary ---
[facility] Organization [facility] Address [address], [place] [address] Support Name Relationship Address Phone Jae Sales Emergency Contact [address] [place] [address] Declined 08/30 Emergency Contact Unknown Unavaila ble Care Team Providers Care Field Service Rep Name Role Phone Zoe Auguste APRN, CNP Primary Care Provider Reason for Visit * Reason Comments Follow-up Stomach pain- Was se en at [facility] on 06/10/25 for epigastric pain. On Pantoprazole and added Famotidine. Isn't felling better and no new symptoms, still having pain on her right side and higher middle area of stomach Encounter Details Date Type Department Care Team (Late st Contact Info) Description 11/05/2024 8:00 AM CDT Office Visit [facility] [address] [place] [address] Zoe Auguste APRN, CNP [address] [place], [place] [phone] Epigastric pain (Primary Dx); LLQ abdominal pain; RLQ abdominal pain; Essential hypertension (HRC); Chronic constipation; Peripheral polyneuropathy; Prediabetes; Screening for diabetes mellitus Social History Tobacco Use Types Packs/Day Years [...] Sign Reading Time Taken Comments Blood Pressure 138/80 11/05/2024 8:20 AM CDT Pulse 65 11/05/2024 7:43 AM CDT Temperature - - Respiratory Rate - - Oxygen Saturation - - Inhaled Oxygen Concentration - - Weight 92.1 kg (203 lb) 11/05/2024 7:43 AM CDT Height - - Body Mass Index 34.03 06/10/2024 1:37 PM CDT documented in this encounter Patient Instructions * Patient Instructions* Zoe Auguste APRN, CNP - 11/05/2024 8:00 AM CDT You can purchase niacin over the counter. Linzess prescribed for chronic constipation. Take this for a month. We will follow up in a month's time. If needed, we can increase the dose of your medication at follow up. For breakthrough treatment, you can take senna up to three days per week Work on increasing your water intake to 8 glasses per day. Labs today. Please call to schedule labs. [facility] Please call your insurance prior to verify coverage. Please let me know if you want to see PT for scar work. documented in this encounter Progress Notes * Zoe Auguste APRN, CNP - 11/05/2024 8:00 AM CDT Chief concern: Chief Complaint Patient presents with Follow-up Stomach pain- Was seen at [facility] on 06/10/25 for epigastric pain. On Pantoprazole and added Famotidine. Isn't felling better and no new symptoms, still having pain on her right side and higher middle area of stomach Other concerns: see HPI Past medical history: Past Medical History: Diagnosis Date Breast cancer ([facility]) Chronic constipation Closed displaced fracture of lesser trochanter of right femur ([facility]) 08/27/2019 Added automatically from request for surgery [id number] Essential hypertension ([facility]) 07/09/2011 Malignant neoplasm of breast (female), unspecified site ([facility]) 04/30/2013 Sliding hiatal hernia 07/09/2017 Medications: Outpatient Medications Prior to Visit Medication Sig Note Dispense Refill calcium carbonate 600 MG tablet Take 1 Tablet (600 mg) by mouth two times a day. carvedilol (COREG) 6.25 MG tablet Take 2 tabs (12.5 mg) in the morning; Take 1 tab (6.25) in the evening furosemide (LASIX) 20 MG tablet Take daily as needed for SOB or ankle swelling. Indications: cardiomyopathy 15 Tablet 3 lactulose (CEPHULAC) 10 GM/15ML solution Take 30 mL (20 g) by mouth three times a day. LORazepam (ATIVAN) 0.5 MG tablet Take 1 Tablet (0.5 mg) by mouth every 12 hours as needed for Anxiety. (Patient not taking: Reported on 11/05/2024) 11/05/2024: DONE 30 Tablet 1 losartan (COZAAR) 25 MG tablet Take 1 Tablet (25 mg) by mouth daily. 90 Tablet 3 lubiprostone (AMITIZA) 24 MCG capsule Take 1 Capsule (24 mcg) by mouth two times a day. (Patient not taking: Reported on 11/05/2024) 11/05/2024: DONE moxifloxacin (VIGAMOX) 0.5 % eye drop solution 1 Drop three times a day. (Patient not taking: Reported on 11/05/2024) 11/05/2024: DONE Multiple Vitamins-Minerals (ZINC OR) (Patient not taking: Reported on 11/05/2024) 11/05/2024: DONE pantoprazole DR (PROTONIX) 40 MG tablet Take 1 Tablet (40 mg) by mouth every morning. prednisoLONE acetate (PRED FORTE) 1 % eye drop suspension 1 Drop three times a day. (Patient not taking: Reported on 11/05/2024) 11/05/2024: DONE Vitamin D-Vitamin K (VITAMIN K2-VITAMIN D3 OR) calcium citrate-vitamin D (CITRACAL+D) 315-200 MG-UNIT tablet Take 1 Tablet by mouth two times a day. osteoporosis 100 Tablet 0 famotidine (PEPCID) 20 MG tablet Take 1 Tablet (20 mg) by mouth two times a day. (Patient not taking: Reported on 11/05/2024) 11/05/2024: DONE 180 Tablet 3 VITAMIN K OR Facility-Administered Medications Prior to Visit Medication Dose Route Frequency Provider Last Rate Last Admin sodium chloride 0.9% injection 10 mL 10 mL Intravenous PRN before&after medications or lab drawMarky Faria MD 10 mL at 11/30/21 [id number] Adverse Drug Reactions: Allergies Allergen Reactions Dionicio Inhibitors Cough Habits: Social History Socioeconomic History Marital status: Spouse name: Not on file Number of children: 4 Years of education: Not on file Highest education level: Not on file Occupational History 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 Tobacco Use Smoking status: Never Smokeless tobacco: Never Vaping Use Vaping status: Never Used Substance and Sexual Activity Alcohol use: No Drug use: No Sexual activity: Yes Partners: Male Other Topics Concern Bike Helmet Not Asked City Water Not Asked Exercise Not Asked Guns in home Not Asked Seat Belt Not Asked Special Diet Not Asked Weight Concern Not Asked Social History Narrative Not on file Social Drivers of Health Financial Resource Strain: High Risk (08/06/2021) [facility] Financial Resource Strain Difficulty of Paying Living Expenses: Not on file Difficulty of Paying Living Expenses: Not on file Food Insecurity: Not on file Transportation Needs: Not on file Physical Activity: Not on file Stress: Not on file Social Connections: Unknown (08/06/2021) Received from [employer], [employer] [facility] Social Connections Frequency of Communication with Friends and Family: Not on file Intimate Partner Violence: Not on file Housing Stability: Not on file HPI: 79 year old female with a medical history of hypertension, hyperlipidemia, dilated cardiomyopathy, chronic constipation, colon polyps, diverticulosis, peripheral neuropathy, BPPV, and breast cancer s/p bilateral mastectomy presents to the clinic for re evaluation of abdominal discomfort. She is accompanied by her . Pamela was seen by my colleague ANIKET Fleming on 06/10/24 for an acute exacerbation of chronic abdominal symptoms. Reported occasional, intermittent epigastric and LLQ pain. Epigastric pain was occurring 5 days per week, episodes are very brief. Did not seem to be triggered by eating food. LLQ discomfort was occurring less frequently. Had recently undergone an EGD with her GI provider in [place] at an outside clinic, and this was normal. Reported chronic constipation. Miralax not helpful. Prescribed lactulose 30 mg three times daily by GI for constipation. Reported taking this every other day, and having a bowel movement every other day. Plan: for acute on chronic epigastric pain, continue protonix 40 mg/day, and add famotidine 20 mg twice daily. Take lactulose daily vs as needed for constipation. If symptoms persist despite interventions, follow up with GI specialist. Today, Pamela reports persistent symptoms. Continues to experience epigastric discomfort, has had an episode of RUQ abdominal idscomfort, and fluctuating LLQ and RLQ abdominal pain. Describes the epigastric discomfort as a jab. Notes this is worse with being constipated. No exacerbation of discomfort with eating. Has ongoing constipation. When she does have a bowel movement, it is loose. No discoloration to the stools. No black or bloody stools. Remains on pantoprazole- she is not certain what dose. She took the famotidine for a brief while, as this was not helpful. Notes that she tried takinglactulose syrup on a regular basis, and its effectiveness seemed to euceda off over time. This was not disappointing to Pamela, as it was not enjoyable to take. She was prescribed the lactulose as it is difficult for her to swallow pills. Her left and right lower quadrant discomfort is occurring lessfrequently. This pain is described as jabbing in quality. No associated nausea or vomiting. No fevers or chills. Her appetite remains good. Drinks 6 glasses of water per day. Of note, one of her sisters recently from cancer in the abdomen. Is s/p cholecystectomy, appendectomy, and hysterectomy (she is not certain whether her ovaries remain). No urinary symptoms. She is urinating at regular intervals. Review of systems: Denies chest pain, shortness of breath. OBJECTIVE: Vital Signs: BP 138/80 (BP Location: Right Arm, BP Cuff Size: Regular - Long) Pulse 65 Wt 92.1 kg (203 lb) BMI 34.03 kg/m?? Patient is alert, oriented, and pleasant. No acute distress. Head: Normocephalic. Eyes: PERRLA, full EOM. External exams normal. Ears: Normal pinnae, canals, and TM's. Nose: Patent, without deformity. Throat: Moist mucous membranes without lesions, erythema, or exudate. Neck: Supple, no cervical lym phadenopathy. Thyroid nontender, without swelling or nodules palpated. Respiratory: Normal respiratory effort. Lungs are clear with good breath sounds. Heart: Regular rate and rhythm, no murmurs, rubs, gallops. Abdomen: The abdomen was soft and slightly tender in the epigastric area without guarding, rebound tenderness, or masses. No hepatosplenomegaly. Legs: Without edema. ASSESSMENT: Diagnosis and Associated Orders ICD-10-CM 1. Epigastric pain R10.13 Creatinine / GFR Complete Blood Count-No Diff CT Abd Pelvis W/WO IV Cont 2. LLQ abdominal pain R10.32 CT Abd Pelvis W/WO IV Cont 3. RLQ abdominal pain R10.31 CT Abd Pelvis W/WO IV Cont 4. Essential hypertension (HRC) I10 Electrolyte Panel 5. Chronic constipation K59.09 linaclotide (LINZESS) 145 MCG capsule Magnesium 6. Peripheral polyneuropathy G62.9 TSH with Free T4 (if TSH Abnormal) Vitamin B6 (8Hr Fast Recommended) B12 Only Folate Only (4Hr Fast Recommended) 7. Prediabetes R73.03 TSH with Free T4 (if TSH Abnormal) 8. Screening for diabetes mellitus Z13.1 Hgb A1C PLAN: Pamela was seen today for follow-up. Diagnoses and all orders for this visit: Epigastric pain - Creatinine / GFR; Future - Complete Blood Count-No Diff; Future - CT Abd Pelvis W/WO IV Cont; Future - we will call Pamela, and verify her current dose of Pantoprazole. We can go up to 80 mg/day for 4-[address] scan ordered to rule out concerning etiology of her pain. Suspect she has some duodenitis or gastritis exacerbated by constipation. LLQ abdominal pain, RLQ abdominal pain - CT Abd Pelvis W/WO IV Cont; Future Essential hypertension (HRC) - Electrolyte Panel; Future Chronic constipation - linaclotide (LINZESS) 145 MCG capsule; Take 1 Capsule (145 mcg) by mouth daily before breakfast. - Magnesium; Future - linzess prescribed for treatment. Follow up in one month via phone visit to re evaluate symptoms. Peripheral polyneuropathy - TSH with Free T4 (if TSH Abnormal); Future - Vitamin B6 (8Hr Fast Recommended); Future - B12 Only; Future - Folate Only (4Hr Fast Recommended); Future - notes the peripheral neuropathy in her feet has persisted. She does not have any pain. Labs ordered to rule out secondary causes. Prediabetes - TSH with Free T4 (if TSH Abnormal); Future Screening for diabetes mellitus - Hgb A1C; Future Orders Placed This Encounter Procedures Creatinine / GFR Hgb A1C Complete Blood Count-No Diff Electrolyte Panel Magnesium TSH with Free T4 (if TSH Abnormal) Vitamin B6 (8Hr Fast Recommended) B12 Only Folate Only (4Hr Fast Recommended) CT Abd Pelvis W/WO IV Cont Patient Instructions You can purchase niacin over the counter. Linzess prescribed for chronic constipation. Take this for a month. We will follow up in a month's time. If needed, we can increase the dose of your medication at follow up. For breakthrough treatment, you can take senna up to three days per week Work on increasing your water intake to 8 glasses per day. Labs today. Please call to schedule labs. Please call to [facility] CT scan. Please call your insurance prior to verify coverage. Please let me know if you want to see PT for scar work. Orders Placed This Encounter Medications calcium carbonate 600 MG tablet Sig: Take 1 Tablet (600 mg) by mouth two times a day. Vitamin D-Vitamin K (VITAMIN K2-VITAMIN D3 OR) lactulose (CEPHULAC) 10 GM/15ML solution Sig: Take 30 mL (20 g) by mouth three times a day. linaclotide (LINZESS) 145 MCG capsule Sig: Take 1 Capsule (145 mcg) by mouth daily before breakfast. Dispense: 30 Capsule Refill: 3 62 minutes spent on the patient encounter. This includes time spent in chart review, face to face with the patient, and in documentation. The patient was discharged ambulatory and in stable condition and agreed with the above plan. Dictation Disclaimer: Some notes are completed with voice-recognition dictation software. Typographical errors may result . Please contact me via [employer] staff message if you note any errors requiring clarification. documented in this encounter Plan of Treatment Upcoming Encounters Date Type Department Care Team (Late st Contact Info) Description 12/15/2024 11:30 AM CDT [facility] [address] [facility] [address] [place] [phone] Zoe Auguste APRN, GUEST HISTORY CLERK [address] [place], [place] [address] 12/17/2024 9:15 AM CDT Appointment [facility] Surgery [address] [facility] [place], [place] [phone] Galdino Longoria MD [address] [place], [place] [phone] 12/21/2024 1:40 PM CDT Appointment [facility]ol[facility]ology at [facility] and Special[facility] [address] [address] [address] [place] [phone] Rajesh Mendes PA-C [address] [place], [place] [phone] documented as of this encounter Results * Folate Only (4Hr Fast Recommended) (11/05/2024 8:51 AM CDT) Folate 10.0 >=7.0 ng/mL 11/05/2024 3:20 PM CDT [facility] Blood Venipuncture / Unknown 11/05/2024 8:51 AM CDT 11/05/2024 8:51 AM CDT us Zoe Auugste OCCUPATIONAL HEALTH SPECIALIST, GUEST HISTORY CLERK LAB_1 Final R esult [facility] [address] [place], [place] [address] * B12 Only (11/05/2024 8:51 AM CDT) Pathologist [facility] Vitamin B12 297 213 - 816 pg/mL 11/05/2024 3:11 PM CDT [facility] Blood Venipuncture / Unknown 11/05/2024 8:51 AM CDT 11/05/2024 8:51 AM CDT Zoe Auguste APRN, CNP LAB_1 Final R esult Performing Organization Address City/[facility] Co de Phone Number [facility] [address] * Vitamin B6 (8Hr Fast Recommended) (11/05/2024 8:51 AM CDT) Pathologist [facility] Vitamin B6 73.4 20.0 - 125.0 nmol/L 11/09/2024 4:00 PM CDT [facility] Comment: INTERPRETIVE INFORMATION: Vitamin B6 (Pyridoxal 5-Phosphate) Pyridoxal 5'-phosphate measured in a specimen collected following an 8-hour or overnight fast accurately indicates vitamin B6 nutritional status. Non-fasting specimen concentration reflects recent vitamin intake. This test was developed and its performance characteristics determined by [facility]. It has not been cleared or approved by the [place] Food and Drug Administration. This test was performed in a CLIA certified laboratory and is intended for clinical purposes. Performed By: [facility] [address] [place] [address] Fittings Finisher: Patrick Locke MD, PhD CLIA Number: [id number] Blood Venipuncture / Unknown 11/05/2024 8:51 AM CDT 11/05/2024 8:51 AM CDT Zoe Auguste APRN, CNP LAB_1 Final R mazinult Performing Organization Address [facility] Co de Phone Number [facility] [address] [place], [place] [id number] [place] [address] * TSH with Free T4 (if TSH Abnormal) (11/05/2024 8:51 AM CDT) Pathologist [facility] TSH, Reflex 3.70 0.30 - 4.50 uIU/mL 11/05/2024 3:05 PM CDT [facility] Blood Venipuncture / Unknown 11/05/2024 8:51 AM CDT 11/05/2024 8:51 AM CDT Zoe Auguste APRN, GUEST HISTORY CLERK LAB_1 Final R esult Performing Organization Address City/[facility]/ZIP Co de Phone Number [facility] [address] [place], [place] [phone] [place] [address] * Magnesium (11/05/2024 8:51 AM CDT) Magnesium 1.9 1.6 - 2.6 mg/dL 11/05/2024 9:24 AM CDT [facility] Blood Venipuncture / Unknown 11/05/2024 8:51 AM CDT 11/05/2024 8:51 AM CDT Zoe Auguste APRN, GUEST HISTORY CLERK LAB_1 Final R esult Performing Organization Address City/[facility]/ZIP Co de Phone Number [facility] [address] [place] [address] * Electrolyte Panel (11/05/2024 8:51 AM CDT) Sodium 138 136 - 145 mmol/L 11/05/2024 9:24 AM T [facility] Potassium 4.4 3.5 - 5.1 mmol/L 11/05/2024 9:24 AM T [facility] Chloride 105 98 - 109 mmol/L 11/05/2024 9:24 AM CDT [facility] CO2 22 20 - 29 mmol/L 11/05/2024 9:24 AM T [facility] Anion Gap 11 6 - 16 mmol/L 11/05/2024 9:24 AM T [facility] Blood Venipuncture / Unknown 11/05/2024 8:51 AM CDT 11/05/2024 8:51 AM CDT Zoe Auguste APRN, GUEST HISTORY CLERK LAB_1 Final R esult Performing Organization Address City/[facility]/ZIP Co de Phone Number [facility] [address] [place] [address], [facility] * (ABNORMAL) Complete Blood Count-No Diff (11/05/2024 8:51 AM CDT) [facility] WBC 6.1 3.5 - 10.5 x10(9)/L 11/05/2024 9:34 AM CDT [facility] RBC 5.16(H) 3.90 - 5.03 x10(12)/L 11/05/2024 9:34 AM T [facility] Hemoglobin 17.7(H) 12.0 - 15.5 g/dL 11/05/2024 9:34 AM [facility] HCT 49.1(H) 34.9 - 44.5 % 11/05/2024 9:34 AM [facility] MCV 95.2 80.0 - 100.0 fL 11/05/2024 9:34 AM [facility] MCH 34.3(H) 27.6 - 33.3 pg 11/05/2024 9:34 AM [facility] MCHC 36.0(H) 31.5 - 35.2 g/dL 11/05/2024 9:34 AM [facility] RDW 11.6(L) 11.9 - 15.5 % 11/05/2024 9:34 AM [facility] Platelets 204 150 - 450 x10(9)/L 11/05/2024 9:34 AM [facility] Automated NRBC 0 <=0 /100 WBC 11/05/2024 9:34 AM [facility] Blood Venipuncture / Unknown 11/05/2024 8:51 AM CDT 11/05/2024 8:51 AM CDT us Zoe Auguste APRN, GUEST HISTORY CLERK LAB_1 Final R VYouult [facility] [address] [place] [address], [facility] * Hgb A1C (11/05/2024 8:51 AM CDT) [facility] Hemoglobin A1C (Rapid) 5.5 <=5.6 % 11/05/2024 10:02 AM CDT [facility] Estimated Average Glucose (Calc) 111 < 117 mg/dL 11/05/2024 10:02 AM T [facility] Comment:Estimated average gl ucose (eAG) converts A1c into glucose units (mg/dL) and estimates average glucose over the past approximately 3 months. The eAG reference interval (<117 mg/dL) corresponds to an A1c of <5.7%. Blood Venipuncture / Unknown 11/05/2024 8:51 AM CDT 11/05/2024 8:51 AM CDT Narrative [facility] - 11/05/2024 10:02 AM CDT The test method used for this Hemoglobin A1c result can experience interference from elevated hemoglobin and other hemoglobin variants. In patients with results that do not correlate clinically, contact the lab for further direction. Zoe Auguste APRN, CNP LAB_1 Final R miLibris Performing Organization Address [facility] de Phone Number [address] * Creatinine / GFR (11/05/2024 8:51 AM CDT) [facility] Creatinine 0.73 0.55 - 1.02 mg/dL 11/05/2024 9:24 AM T [facility] GFR, Estimated >60 >60 mL/min/1.7 3m2 11/05/2024 9:24 AM T [facility] Blood Venipuncture / Unknown 11/05/2024 8:51 AM CDT 11/05/2024 8:51 AM CDT Zoe Auguste APRN, CNP LAB_1 Final R VYouult Performing Organization Address [facility] Co de Phone Number [address] documented in this encounter Visit Diagnoses Diagnosis Epigastric pain- Primary Abdominal pain, epigastric LLQ abdominal pain Abdominal pain, left lower quadrant RLQ abdominal pain Abdominal pain, right lower quadrant Essential hypertension (HRC) Unspecified essential hypertension Chronic constipation Unspecified constipation Peripheral polyneuropathy Unspecified hereditary and idiopathic peripheral neuropathy Prediabetes Other abnormal glucose Screening for diabetes mellitus documented in this encounter Care Teams Field Service Rep Relationship Specialty Start Date End Date Zoe Auguste, OCCUPATIONAL HEALTH SPECIALIST, GUEST HISTORY CLERK [address] [place] [address] PCP - General 05/05/13 documented as of this encounter
--- OUTSIDE RECORDS SUMMARY | 2024-12-07 22:16 | XMS_ITS | Clinical Summary ---
Author Organization [facility] Address [address] [address] Support Name Relationship Address Phone Jae Sales Emergency Contact [address] [place] [address] Declined 08/30 Emergency Contact Unknown Unavaila ble Care Team Providers Care Service Center Technician Name Role Phone Zoe Auguste APRN, TUBE PULLER Primary Care Provider Source Comments You are receiving this document as you are listed as the primary care provider,follow-up provider, or the patient has been referred to you for consultation.This is in compliance with the Medicare and[facility] EHR Incentive Program,which states Providers who transition their patient to another setting of careor provider of care or refers their patient to another provider of care shouldprovide summary care record for each transition of care or referral. [facility] Allergies Active Allergy Reactions Criticality Noted Date Comments Dionicio Inhibitors Cough 02/06/2021 Medications furosemide (LASIX) 20 MG tabletIndication s:cardiomyopathy Take daily as needed for SOB or ankle swelling. Indications: cardiomyopathy 15 Tablet 3 02/26/20 24 Active losartan (COZAAR) 25 MG tablet Take 1 Tablet (25 mg) by mouth daily. 90 Tablet 3 02/26/20 24 Active carvedilol (COREG) 6.25 MG tablet Take 2 tabs (12.5 mg) in the morning; Take 1 tab (6.25) in the evening 06/08/20 24 Active calcium carbonate 600 MG tablet Take 1 Tablet (600 mg) by mouth two times a day. Active Vitamin D-Vitamin K (VITAMIN K2-VITAMIN D3 OR) Active lactulose (CEPHULAC) 10 GM/15ML solution Take 30 mL (20 g) by mouth three times a day. 07/06/20 24 Active polyethylene glycol 3350 (GLYCOLAX) 17 GM/SCOOP powderIndication s:Chronic constipation Take 17-34 g by mouth daily. Mix in 4-8 ounces of liquid and drink 578 g 11 12/03/19 Active Additional Information Patient not taking.Reported on 12/02/2024 docusate sodium (COLACE) 100 MG capsuleIndicatio ns:Chronic constipation Take 1 Capsule (100 mg) by mouth two times a day. 200 Capsule 12/03/19 Active Additional Information Patient not taking.Reported on 12/02/[address] (PROTONIX) 40 MG tabletIndication s:Epigastric pain,Sliding hiatal hernia Take 1 Tablet (40 mg) by mouth two times a day before meals. 180 Tablet 12/03/19 Active Multiple Vitamins-Mineral s (ZINC OR) 025 Discontin ued(Sajan eous Entry/Dup licate/Ot her) LORazepam (ATIVAN) 0.5 MG tablet Take 1 Tablet (0.5 mg) by mouth every 12 hours as needed for Anxiety. 30 Tablet 1 02/26/20 025 Discontin ued(Sajan eous Entry/Dup licate/Ot her) prednisoLONE acetate (PRED FORTE) 1 % eye drop suspension 1 Drop three times a day. 04/13/20 025 Discontin ued(Sajan eous Entry/Dup licate/Ot her) pantoprazole DR (PROTONIX) 40 MG tablet Take 1 Tablet (40 mg) by mouth every morning. 04/20/20 025 Discontin ued(*Med change OR same med OR reorder, new dose/dire ctions) moxifloxacin (VIGAMOX) 0.5 % eye drop solution 1 Drop three times a day. 04/13/20 24 025 Discontin ued(Sajan eous Entry/Dup licate/Ot her) lubiprostone (AMITIZA) 24 MCG capsule Take 1 Capsule (24 mcg) by mouth two times a day. 01/16/20 24 025 Discontin ued(Sajan eous Entry/Dup licate/Ot her) linaclotide (LINZESS) 145 MCG capsuleIndicatio ns:Chronic constipation Take 1 Capsule (145 mcg) by mouth daily before breakfast. 30 Capsule 3 11/06/19 25 025 Discontin ued(Sajan eous Entry/Dup licate/Ot her) Active Problems Problem Noted Date Diagnosed Date Epigastric pain 12/02/2024 Peripheral polyneuropathy 11/05/2024 H/O bilateral mastectomy 01/10/2021 Elevated hemoglobin 01/10/2021 Chronic constipation 01/10/2021 Insomnia 01/10/2021 Hypercholesterolemia 10/18/2019 Sliding hiatal hernia 07/09/2017 Hx of colonic polyp 11/18/2012 Obesity, Class II, BMI 35-39.9 03/09/2012 Overview (04/02/2017): Obesity, unspecified Essential hypertension 03/09/2012 LBBB (left bundle branch block) 03/09/2012 Dilated cardiomyopathy 05/19/2011 Overview (06/10/2024): Her cardiomyopathy was initially diagnosed in 2010 when she presented to the hospital on May 2011. In that note it was mentioned that she presented because of shortness of breath and her ejection fraction demonstrated EF of 30%. -Most recent EF 40%, due for follow up 11/2024 Cough 06/01/2003 Benign paroxysmal positional vertigo 06/17/2002 Resolved Problems Problem Noted Date Diagnosed Date Resolved Date Closed displaced fracture of lesser trochanter of right femur 08/27/2019 10/18/2019 Overview (08/27/2019): Added automatically from request for surgery [id number] Leg swelling 10/06/2013 08/26/2016 Encounter for antineoplastic chemotherapy 06/03/2013 08/26/2016 Malignant neoplasm of female breast 04/30/2013 01/10/2021 Overview (04/02/2017): Malignant neoplasm of breast (female), unspecified site (HRC) Hemorrhoid 11/18/2012 08/26/2016 Chronic systolic heart failure 10/01/2012 12/15/2018 Essential hypertension 07/09/201108/26 Dyspnea 05/18/2011 08/26/2016 Chest pain 05/18/2011 08/26/2016 Seasonal allergies 05/18/2011 7 Encounters Date Type Department Care Team Description 12/07/2024 Telephone [facility] [address] [place] [phone] Zoe Auguste APRN, CNP Nurse Return Call Request 12/02/2024 1:30 PM CDT Pre-Op Visit [facility] [address] [place] [phone] Sophie Juarez APRN, CNP Preop examination (Primary Dx); Dilated cardiomyopathy (HRC); Essential hypertension (HRC); Hypercholesterolemia; LBBB (left bundle branch block); H/O bilateral mastectomy; Polycythemia 12/02/2024 9:00 AM CDT Phone Visit [facility] [address] [place] [address] Zoe Auguste APRN, JESSICA Chronic constipation (Primary Dx); Elevated hemoglobin (HRC); Epigastric pain; Sliding hiatal hernia; Breast pain 11/28/2024 Results Follow-Up [facility] [address] [place] [phone] Zoe Auguste APRN, CNP 11/25/2024 1:00 PM CDT Lab Visit [facility] [id number] [place] [phone] Elevated hemoglobin (HRC) 11/10/2024 Results Follow-Up [facility] [address] [place] [phone] Sophie Juarez APRN, CNP 11/09/2024 10:20 AM CDT Ancillary Procedure [facility] Scan [address] [place] [phone] Zoe Auguste APRN, TUBE PULLER Epigastric pain; LLQ abdominal pain; RLQ abdominal pain 11/09/2024 E-Visit [facility] [address] [place] [phone] Zoe Auguste APRN, TUBE PULLER 11/09/2024 Telephone [facility] [address] [place] [address] Zoe Auguste APRN, JESSICA Test Results (CT abdomen and pelvis/) 11/05/2024 8:40 AM CDT Lab Visit [facility] [address] [place] [address] Epigastric pain; Screening for diabetes mellitus; Essential hypertension (HRC); Chronic constipation; Peripheral polyneuropathy; Prediabetes 11/05/2024 8:00 AM CDT Office Visit [facility] [address] [place] [address] Zoe Auguste APRN, CNP Epigastric pain (Primary Dx); LLQ abdominal pain; RLQ abdominal pain; Essential hypertension (HRC); Chronic constipation; Peripheral polyneuropathy; Prediabetes; Screening for diabetes mellitus 11/05/2024 Telephone [facility] [address] [place] [address] Zoe Auguste APRN, CNP Plan of Care (Pantoprazole dose) from Last 3 Months Immunizations Immunization Administration Dates Next Due Tdap [...] file Not on file Not on file Last Filed Vital Signs Vital Sign Reading Time Taken Comments Blood Pressure 135/74 12/02/2024 1:23 PM CDT Pulse 51 12/02/2024 1:23 PM CDT Temperature 36.5 C (97.7 F) 12/02/2024 1:25 PM CDT Respiratory Rate 14 10/08/2022 2:15 PM EXTRUSION LINE OPERATOR Oxygen Saturation 91% 10/08/2022 2:15 PM EXTRUSION LINE OPERATOR Inhaled Oxygen Concentration - - Weight 94.9 kg (209 lb 3.2 oz) 12/02/2024 1:24 P M CDT Height 161.3 cm (5' 3.5) 12/02/2024 1:24 PM CDT Body Mass Index 36.48 12/02/2024 1:24 PM CDT Plan of Treatment Upcoming Encounters Date Type Department Care Team (Late st Contact Info) Description 12/15/2024 11:30 AM CDT [facility] [id number] [facility] [address] [place] [phone] Zoe Auguste APRN, TUBE PULLER [address] [place] [address] 12/17/2024 9:15 AM CDT Appointment [facility]- [facility] [address] [facility] [address] Galdino Longoria MD [address] [place], [place] [phone] 12/21/2024 1:40 PM CDT Appointment Otol[facility]ology at [facility] [address] [address] [address] [place] [phone] Rajesh Mendes [facility] [address] [place] [address] Health Maintenance Due Date Last Done Comments Medicare Annual Wellness Visit 1945 Pneumococcal Vaccine 50+ Yrs (1 of 2 - PCV) 1962 Zoster/Shingles Vaccine (1 of 2) 1993 RSV Vaccine (1 - 1-dose 75+ series) 2018 COVID-19 Vaccine ( - 2023- season) 2024 Influenza Vaccine (#1) 2024 Colonoscopy 10/08/2025 10/08/2022, 05/12, 02/29/2016 Prediabetes: HGBA1C 11/05/2025 11/05/2024, 01/10/2021, 07/09/2017, Additional history exists DTaP/Tdap/Td Vaccine (2 - Tdap) 01/10/2031 01/10/2021 Dexa Completed 12/13/2013, 12/08/2013 HepA Vaccine Aged Out No longer eligi ble based on patient's age to complete this topic HepB Vaccine Aged Out No longer eligi ble based on patient's age to complete this topic Hib Vaccine Aged Out No longer eligi ble based on patient's age to complete this topic IPV (Polio) Vaccine Aged Out No longe r eligible based on patient's age to complete this topic MCV4 Vaccine Aged Out No longer eligi ble based on patient's age to complete this topic Meningococcal B Vaccine Aged Out No l onger eligible based on patient's age to complete this topic Medical Devices Implanted Type Area Painting Technician Device Identifier Shelf Expiration Date Model / Serial / Lot Nail Marco Ti St 130d [id number] - [id number] Implanted:Qty: 1 on 08/27/2019 by Kaity Wood MD at [facility] DEVICE Right: HIP [employer] - Trauma 12/09/2027 [id number] S / / [id number] Scr Tfna Fen[address] St 100mm - [id number] Implanted:Qty: 1 on 08/27/2019 by Kaity Wood MD at [facility] DEVICE Right: [employer] - Trauma 01/08/2029 [id number] S / / [id number] Scr Lk Ti T25 St 5.0x46 - [id number] Implanted:Qty: 1 on 08/27/2019 by Kaity Wood MD at [facility] DEVICE Right: HIP [employer] - Trauma 07/10/2027 [id number] S / / [id number] Procedures Procedure Name Priority Date/Time Associated Diagnosis Comments ECG 12 LEAD OUTPATIENT Routine 2:17 PM CDT Preop examination Dilated cardiomyopathy (HRC) ERYTHROPOIETIN Routine 11/25/2024 12:16 PM CDT Elevated hemoglobin (HRC) CT ABD PELVIS W IV CONT Routine 11/09/2024 10:08 AM CDT Epigastric pain LLQ abdominal pain RLQ abdominal pain FOLATE ONLY (4HR FAST RECOMMENDED) Routine 11/05/2024 8:51 AM CDT Peripheral polyneuropathy VITAMIN B12 ONLY Routine 11/05/2024 8:51 AM CDT Peripheral polyneuropathy VITAMIN B6 (8HR FAST RECOMMENDED) Routine 11/05/2024 8:51 AM CDT Peripheral polyneuropathy TSH, SENSITIVE (WITH REFLEX) Routine 11/05/2024 8:51 AM CDT Peripheral polyneuropathy Prediabetes MAGNESIUM Routine 11/05/2024 8:51 AM CDT Chronic constipation ELECTROLYTE PANEL Routine 11/05/2024 8:5 1 AM CDT Essential hypertension (HRC) COMPLETE BLOOD COUNT-NO DIFF Routine 11/05/2024 8:51 AM CDT Epigastric pain HGB A1C Routine 11/05/2024 8:51 AM CDT Screening for diabetes mellitus CREATININE / GFR Routine 11/05/2024 8:51 AM CDT Epigastric pain ENDOSCOPY, COLON, SCREENING/DIAGNOSTIC Routine 10/08/2022 12:48 PM EXTRUSION LINE OPERATOR Hx of colonic polyp Colon cancer screening DXA BONE DENSITY STUDY 1+ SITS AXIAL Routine 12/13/2013 10:40 AM CDT Menopause from Last 3 Months or Most Recently Relevant to Health Maintenance Results * ECG 12 Lead (Clinical Applicator Sprayer to perform) (12/02/2024 2:17 PM CDT) Ventricular Rate 65 BPM MUSE GHP Atrial Rate 65 BPM MUSE GHP P-R Interval 178 ms MUSE GHP QRS Duration 166 ms MUSE GHP QT 502 ms MUSE GHP QTC 522 ms MUSE GHP P [place] 67 degrees MUSE GHP R [place] -30 degrees MUSE GHP T [place] 137 degrees MUSE GHP 12/02/2024 2:17 PM CDT Narrative MUSE GHP - 12/02/2024 2:53 PM CDT Sinus rhythm with frequent Premature ventricular complexes in a pattern of bigeminy Left axis deviation Left bundle branch block Abnormal ECG When compared with ECG of 09-MAR-2020 11:32, Premature ventricular complexes are now Present T wave inversion no longer evident in Anterior leads QT has lengthened Confirmed by Paul Nixon ([id number]) on 12/02/2024 2:53:43 PM Procedure Note Paul Nixon MD - 12/02/2024 Sinus rhythm with frequent Premature ventricular complexes in a pattern ofbigeminy Left axis deviation Left bundle branch block Abnormal ECG When compared with ECG of 09-MAR-2020 11:32, Premature ventricular complexes are now Present T wave inversion no longer evident in Anterior leads QT has lengthened Confirmed by Paul Nixon ([id number]) on 12/02/2024 2:53:43 PM Sophie Juarez GLASS FURNACE OPERATOR, TUBE PULLER PN ECG ORDERABLES F inal Result [facility] [address] [place] [address] * Erythropoeitin (11/25/2024 12:16 PM CDT) Pathologist [facility] [place] Erythropoietin 12 4 - 27 mU/mL 11/27/2024 4:03 AM CDT [facility] Comment: INTERPRETIVE INFORMATION: Erythropoietin Normal serum concentrations [...] may benefit from therapy with recombinant EPO ([facility] [id number],1989). Performed By: [facility] [address] [place] [address] Geophysical Laboratory Supervisor: Patrick Locke MD, PhD CLIA Number: [id number] Blood Venipuncture / Unknown 11/25/2024 12:16 PM CDT 11/25/2024 12:16 PM CDT us Zoe Auguste APRN, TUBE PULLER LAB_1 Final R esult Performing Organization Address [facility]/State/[facility] Co de Phone Number [facility] [address] [place] [address] [place] [address] * CT Abd Pelvis W IV Cont (11/09/2024 10:08 AM CDT) Anatomical Region Laterality Modality Abdomen, Pelvis Computed Tomogra phy 11/09/2024 10:0 5 AM CDT Impressions 11/09/2024 10:39 AM CDT 1. Moderate-sized hiatal hernia, similar to prior. 2. Colonic diverticulosis, most significant within the sigmoid colon. No evidence of acute diverticulitis. 3. Mild tree-in-bud nodules in the right lung base, likely aspiration versus mild infectious process. 4. Pelvic floor prolapse. Narrative 11/09/2024 10:39 AM CDT COMPARISON: CT 11/30/2021 TECHNIQUE: Images were obtained through the abdomen and pelvis following the administration of 75 mL IOHEXOL 350 MG/ML IV SOLN IV contrast. FINDINGS: LOWER CHEST: Mild tree-in-bud nodules within the right lung base (series 4 image 11, 8). LIVER: Unremarkable. GALLBLADDER AND BILIARY TREE: Cholecystectomy. No intrahepatic or extrahepatic biliary ductal dilation. PANCREAS: Unremarkable. SPLEEN: Unremarkable. ADRENALS: Unremarkable. KIDNEYS, URETERS, AND BLADDER: Prominent right extrarenal pelvis, similar to prior. Bilateral cortical hypodensities, too small to characterize, similar to prior. No nephrolithiasis. Urinary bladder is unremarkable. VESSELS: No abdominal aortic aneurysm. BOWEL: Moderate size hiatal hernia, similar to prior. Colonic diverticulosis, predominantly involving the sigmoid colon. No evidence of acute diverticulitis. No evidence for appendicitis. REPRODUCTIVE ORGANS: Status post hysterectomy. No pelvic masses. MESENTERY/PERITONEUM: No enlarged mesenteric lymph nodes. No ascites or free air. No focal fluid collection. RETROPERITONEUM: No adenopathy. ABDOMINAL WALL/SOFT TISSUES: Small broad-based fat containing ventral wall hernia. Pelvic floor prolapse. BONES: Grade 1 anterolisthesis of L5 on S1 with associated endplate degenerative changes and intervertebral disc space narrowing. Mild endplate degenerative changes present throughout the visualized thoracolumbar spine. Postoperative changes of the right proximal femur. Procedure Note Mor Montero MD - 11/09/2024 COMPARISON: CT 11/30/2021 TECHNIQUE: Images were obtained through the abdomen and pelvis followingthe administration of 75 mL IOHEXOL 350 MG/ML IV SOLN IV contrast. FINDINGS: LOWER CHEST: Mild tree-in-bud nodules within the right lung base (series 4image 11, 8). LIVER: Unremarkable. GALLBLADDER AND BILIARY TREE: Cholecystectomy. No intrahepatic orextrahepatic biliary ductal dilation. PANCREAS: Unremarkable. SPLEEN: Unremarkable. ADRENALS: Unremarkable. KIDNEYS, URETERS, AND BLADDER: Prominent right extrarenal pelvis, similarto prior. Bilateral cortical hypodensities, too small to characterize,similar to prior. No nephrolithiasis. Urinary bladder is unremarkable. VESSELS: No abdominal aortic aneurysm. BOWEL: Moderate size hiatal hernia, similar to prior. Colonicdiverticulosis, predominantly involving the sigmoid colon. No evidence ofacute diverticulitis. No evidence for appendicitis. REPRODUCTIVE ORGANS: Status post hysterectomy. No pelvic masses. MESENTERY/PERITONEUM: No enlarged mesenteric lymph nodes. No ascites orfree air. No focal fluid collection. RETROPERITONEUM: No adenopathy. ABDOMINAL WALL/SOFT TISSUES: Small broad-based fat containing ventral wallhernia. Pelvic floor prolapse. BONES: Grade 1 anterolisthesis of L5 on S1 with associated endplatedegenerative changes and intervertebral disc space narrowing. Mildendplate degenerative changes present throughout the visualizedthoracolumbar spine. Postoperative changes of the right proximal femur. IMPRESSION 1. Moderate-sized hiatal hernia, similar to prior. 2. Colonic diverticulosis, most significant within the sigmoid colon. Noevidence of acute diverticulitis. 3. Mild tree-in-bud nodules in the right lung base, likely aspirationversus mild infectious process. 4. Pelvic floor prolapse. Zoe Auguste APRN, CNP RAD CT Final R esult * Vitamin B6 (8Hr Fast Recommended) (11/05/2024 8:51 AM CDT) Vitamin B6 73.4 20.0 - 125.0 nmol/L 11/09/2024 4:00 PM CDT [facility] Comment: INTERPRETIVE INFORMATION: Vitamin B6 (Pyridoxal 5-Phosphate) Pyridoxal 5'-phosphate measured in a specimen collected following an 8-hour or overnight fast accurately indicates vitamin B6 nutritional status. Non-fasting specimen concentration reflects recent vitamin intake. This test was developed and its performance characteristics determined by [facility]. It has not been cleared or approved by the [place] Food and Drug Administration. This test was performed in a CLIA certified laboratory and is intended for clinical purposes. Performed By: [facility] [address] [place] [address] Geophysical Laboratory Supervisor: Patrick Locke MD, PhD CLIA Number: [id number] Blood Venipuncture / Unknown 11/05/2024 8:51 AM CDT 11/05/2024 8:51 AM CDT Zoe Auguste APRN, CNP LAB_1 Final R esult [facility] [address] [place], [place] [address] [place] [address] * Creatinine / GFR (11/05/2024 8:51 AM CDT) Pathologist [facility] [place] Creatinine 0.73 0.55 - 1.02 mg/dL 11/05/2024 9:24 AM [facility] GFR, Estimated >60 >60 mL/min/1.7 3m2 11/05/2024 9:24 AM [facility] Blood Venipuncture / Unknown 11/05/2024 8:51 AM CDT 11/05/2024 8:51 AM CDT us Zoe Auguste APRN, JESSICA LAB_1 Final R esult Performing Organization Address City/[facility]/ZIP Co de Phone Number [facility] [address] [place] [address] * (ABNORMAL) Complete Blood Count-No Diff (11/05/2024 8:51 AM CDT) Pathologist [facility] WBC 6.1 3.5 - 10.5 x10(9)/L 11/05/2024 9:34 AM [facility] RBC 5.16(H) 3.90 - 5.03 x10(12)/L 11/05/2024 9:34 AM [facility] Hemoglobin 17.7(H) 12.0 - 15.5 g/dL 11/05/2024 9:34 AM [facility] HCT 49.1(H) 34.9 - 44.5 % 11/05/2024 9:34 AM [facility] MCV 95.2 80.0 - 100.0 fL 11/05/2024 9:34 AM [facility] MCH 34.3(H) 27.6 - 33.3 pg 11/05/2024 9:34 AM [facility] MCHC 36.0(H) 31.5 - 35.2 g/dL 11/05/2024 9:34 AM [facility] RDW 11.6(L) 11.9 - 15.5 % 11/05/2024 9:34 AM CDT [facility] Platelets 204 150 - 450 x10(9)/L 11/05/2024 9:34 AM [facility] Automated NRBC 0 <=0 /100 WBC 11/05/2024 9:34 AM [facility] Blood Venipuncture / Unknown 11/05/2024 8:51 AM CDT 11/05/2024 8:51 AM CDT Zoe Auguste APRN, TUBE PULLER LAB_1 Final R esult Performing Organization Address City/[facility]/ZIP Co de Phone Number [facility] [address] [place] [address], [facility] * Electrolyte Panel (11/05/2024 8:51 AM CDT) Sodium 138 136 - 145 mmol/L 11/05/2024 9:24 AM T [facility] Potassium 4.4 3.5 - 5.1 mmol/L 11/05/2024 9:24 AM [facility] Chloride 105 98 - 109 mmol/L 11/05/2024 9:24 AM [facility] CO2 22 20 - 29 mmol/L 11/05/2024 9:24 AM [facility] Anion Gap 11 6 - 16 mmol/L 11/05/2024 9:24 AM [facility] Blood Venipuncture / Unknown 11/05/2024 8:51 AM CDT 11/05/2024 8:51 AM CDT Zoe Auguste APRN, TUBE PULLER LAB_1 Final R esult [facility] [address] [place] [address], [facility] * Magnesium (11/05/2024 8:51 AM CDT) Magnesium 1.9 1.6 - 2.6 mg/dL 11/05/2024 9:24 AM T [facility] Blood Venipuncture / Unknown 11/05/2024 8:51 AM CDT 11/05/2024 8:51 AM CDT Zoe Auguste APRN, CNP LAB_1 [facility] Performing Organization Address City/[facility]/ZIP Co de Phone Number [facility] [address] [place] [address] * TSH with Free T4 (if TSH Abnormal) (11/05/2024 8:51 AM CDT) Pathologist [facility] TSH, Reflex 3.70 0.30 - 4.50 uIU/mL 11/05/2024 3:05 PM CDT [facility] Blood Venipuncture / Unknown 11/05/2024 8:51 AM CDT 11/05/2024 8:51 AM CDT Zoe Auguste APRN, CNP LAB_1 Final R [facility] Performing Organization Address City/[facility] de Phone Number [facility] [address] [place], [place] [phone] [place] [address] * Hgb A1C (11/05/2024 8:51 AM CDT) Pathologist [facility] Hemoglobin A1C (Rapid) 5.5 <=5.6 % 11/05/2024 10:02 AM CDT [facility] Estimated Average Glucose (Calc) 111 < 117 mg/dL 11/05/2024 10:02 AM CDT [facility] Comment:Estimated average gl ucose (eAG) converts A1c into glucose units (mg/dL) and estimates average glucose over the past approximately 3 months. The eAG reference interval (<117 mg/dL) corresponds to an A1c of <5.7%. Blood Venipuncture / Unknown 11/05/2024 8:51 AM CDT 11/05/2024 8:51 AM CDT Narrative [facility] - 11/05/2024 10:02 AM CDT The test method used for this Hemoglobin A1c result can experience interference from elevated hemoglobin and other hemoglobin variants. In patients with results that do not correlate clinically, contact the lab for further direction. Zoe Auguste APRN, CNP LAB_1 Final R esult Performing Organization Address City/[facility]/ZIP Co de Phone Number [facility] [address] [place] [address] * Folate Only (4Hr Fast Recommended) (11/05/2024 8:51 AM CDT) Folate 10.0 >=7.0 ng/mL 11/05/2024 3:20 PM CDT [facility] Blood Venipuncture / Unknown 11/05/2024 8:51 AM CDT 11/05/2024 8:51 AM CDT us Zoe Auguste APRN, CNP LAB_1 Final R esult Performing Organization Address [facility] Co de Phone Number [facility] [address] * B12 Only (11/05/2024 8:51 AM CDT) Vitamin B12 297 213 - 816 pg/mL 11/05/2024 3:11 PM CDT [facility] Blood Venipuncture / Unknown 11/05/2024 8:51 AM CDT 11/05/2024 8:51 AM CDT us Zoe Auguste APRN, CNP LAB_1 Final R esult Performing Organization Address [facility] [facility] Co de Phone Number [facility] [address] * Endoscopy, colon, diagnostic (10/08/2022 12:48 PM EXTRUSION LINE OPERATOR) Anatomical Region Laterality Modality Other 10/08/2022 12:4 8 PM EXTRUSION LINE OPERATOR Narrative 10/08/2022 12:48 PM EXTRUSION LINE OPERATOR Patient Name: Pamela Sales Procedure Date: 10/08/2022 12:48 PM Date of : 1945 Admit Type: Outpatient Age: 77 Gender: Female Note Status: Finalized Attending MD: Morena Reed , Procedure: Colonoscopy Indications: High risk colon cancer surveillance: Personal history of colonic polyps, Last colonoscopy: May 2019 Providers: Morena Reed, Sophie Saavedra Referring MD: Ann Gilbert MD Medicines: Fentanyl 100 micrograms IV, Midazolam 3 mg IV Complications: No immediate complications. Procedure: After I obtained informed consent, the scope was passed under direct vision. Throughout the procedure, the patient's blood pressure, pulse, and oxygen saturations were monitored continuously. The [id number] was introduced through the anus and advanced [...] from the initial medication administration until the framing inspector assists with initial maneuvers (biopsy / polypectomy [...] surveillance guidelines Procedure Code(s): --- Professional --- 84360, Colonoscopy, flexible; with removal of tumor(s), polyp(s), or other lesion(s) by snare technique G0500, Moderate sedation services provided by the same physician or other qualified health client care representative performing a gastrointestinal endoscopic service that sedation supports, requiring the presence of an independent trained observer to assist in the monitoring of the patient's level of consciousness and physiological status; initial 15 minutes of intra-service time; patient age 5 years or older (additional time may be reported with 76890, as appropriate) Diagnosis Code(s): --- Professional --- Z86.010, Personal history of colonic polyps K63.5, Polyp of colon K64.9, Unspecified hemorrhoids K57.30, Diverticulosis of large intestine without perforation or abscess without bleeding CPT copyright 2020 [employer]. All rights reserved. The codes documented in this report are preliminary and upon him coder review may be revised to meet current compliance requirements. Morena Reed, 10/08/2022 2:03:26 PM This document has been electronically signed. Number of Addenda: 0 Note Initiated On: 10/08/2022 12:48 PM Endoscopy Report Procedure Note Morena Reed MD [...] and oxygen saturations were monitored continuously. The [id number] was introduced through the anus and advanced [...] from the initial medication administration until the framing inspector assists with initial maneuvers (biopsy / polypectomy [...] surveillance guidelines Procedure Code(s): --- Professional --- 96897, Colonoscopy, flexible; with removal of tumor(s), polyp(s), or other lesion(s) by snare technique G0500, Moderate sedation services provided by the same physician or other qualified health client care representative performing a gastrointestinal endoscopic service that sedation supports, requiring the presence of an independent trained observer to assist in the monitoring of the patient's level of consciousness and physiological status; initial 15 minutes of intra-service time; patient age 5 years or older (additional time may be reported with 35074, as appropriate) Diagnosis Code(s): --- Professional --- Z86.010, Personal history of colonic polyps K63.5, Polyp of colon K64.9, Unspecified hemorrhoids K57.30, Diverticulosis of large intestine without perforation or abscess without bleeding CPT copyright 2020 [employer]. All rights reserved. The codes documented in this report are preliminary and upon him coder review may be revised to meet current compliance requirements. Morena Reed, 10/08/2022 2:03:26 PM This document has been electronically signed. Number of Addenda: 0 Note Initiated On: 10/08/2022 12:48 PM Endoscopy Report us Makenna Buckner GLASS FURNACE OPERATOR, TUBE PULLER ET GI ELOINA REYNOLDSDre WEINBERGLUCIO Final Result from Last 3 Months or Most Recently Relevant to Health Maintenance Insurance [facility] MEDICARE ADVANTAGE Advance Directives * Full Code (Latest Code Status on File) Date Activated Date Inactivated Comments 03/13/2020 2:00 PM 03/13/2020 10:33 PM * Full Code Date Activated Date Inactivated Comments 08/27/2019 11:50 PM 09/01/2019 5:15 PM * Full Code Date Activated Date Inactivated Comments 04/07/2017 1:44 PM 04/08/2017 6:49 PM Care Teams Service Center Technician Relationship Specialty Start Date End Date Zoe uAguste APRN, TUBE PULLER [address] [place] [address] PCP - General 05/05/13
--- OUTSIDE RECORDS SUMMARY | 2024-12-07 22:16 | XMS_ITS | Encounter Summary ---
Author Organization [facility] Address [address], [place] [address] Support Name Relationship Address Phone Jae Sales Emergency Contact [address] [place] [address] Declined 08/30 Emergency Contact Unknown Unavaila ble Care Team Providers Care Ginner Name Role Phone Zoe Auguste APRN, JESSICA Primary Care Provider Reason for Visit * Reason Comments Test Results CT abdomen and pelvi s Encounter Details Date Type Department Care Team (Late st Contact Info) Description 11/09/2024 Telephone [facility] [address] [place] [address] Zoe Auguste APRN, PRODUCTION LINE WELDER [address] [place] [address] Test Results (CT abdomen and pelvis/) Social History Tobacco Use Types Packs/Day Years [...] as of this encounter Nursing Notes * Seema Huynh LPN - 11/09/2024 3:44 PM CDT I called and talked to Pamela and reviewed the msg below from RL. She denies cough and fever. She thinks it might be aspirated food as she has had it happen a few times where her food goes down the wrong tube. She said she went to picker tender the [employer] and it was $137 dollars so didn't pick it up due to the expense and said it didn't wk in the past. Has been wking on increasing water and has done Senna 3 times a week. She doesn't use My chart and requested it to be deactivated so to call/ send a letter with results * Zoe Auguste APRN, PRODUCTION LINE WELDER - 11/09/2024 2:09 PM CDT Please tell Pamela that I received her CT of the abdomen and pelvis, and there were no acute findings. I will send her a my chart message explaining the findings. One of the comments the radiologist made is there is a potential area of infection vs aspirated food in the right lower lung. Is she experiencing a cough? Thank you. documented in this encounter Plan of Treatment Upcoming Encounters Date Type Department Care Team (Late st Contact Info) Description 12/15/2024 11:30 AM CDT Appointment [facility] [address] Radiology [facility] [address] [place] [phone] Zoe Auguste APRN, PRODUCTION LINE WELDER [address] [place] [address] 12/17/2024 9:15 AM CDT Appointment [facility]- [facility] Surgery [address] [facility] [place], [place] [phone] Galdino Longoria MD [address] [place] [address] 12/21/2024 1:40 PM CDT Appointment Otolaryngology at [facility] [address] [place] [phone] Rajesh Mendes, PA-C [address] [place], [place] [address] documented as of this encounter Visit Diagnoses Not on filedocumented in this encounter Care Teams Ginner Relationship Specialty Start Date End Date Zoe Auguste APRN, PRODUCTION LINE WELDER [address] [place] [address] PCP - General 05/05/13 documented as of this encounter
--- OUTSIDE RECORDS SUMMARY | 2024-12-07 22:16 | XMS_ITS | Encounter Summary ---
Author Organization [facility] Address [address], [place] [address] Support Name Relationship Address Phone Jae Sales Emergency Contact [address] [place] [address] Declined 08/30 Emergency Contact Unknown Unavaila ble Care Team Providers Care Brazing Machine Tender Name Role Phone Zoe Auguste APRN, CNP Primary Care Provider Encounter Details Date Type Department Care Team (Late Contact Info) Description 11/25/2024 1:00 PM CDT Lab Visit [facility] [address] [place] [address] Elevated hemoglobin (HRC) Social History Tobacco Use Types Packs/Day Years [...] Description 12/15/2024 11:30 AM CDT Appointment [facility] [address] [place] [address] [place] [address] Zoe Auguste APRN, CNP [address] [place] [id number] 12/17/2024 9:15 AM CDT Appointment [facility]- Plastic Surgery [address] [facility] [address] Galdino Longoria MD [address] [place] [address] 12/21/2024 1:40 PM CDT Appointment Otolaryngology at [address] [phone] Rajesh Mendes PA-C [address] [place], [place] [phone] documented as of this encounter Procedures Procedure Name Priority Date/Time Associated Diagnosis Comments ERYTHROPOIETIN Routine 11/25/2024 12:16 PM CDT Elevated hemoglobin (HRC) documented in this encounter Results * Erythropoeitin (11/25/2024 12:16 PM CDT) Erythropoietin 12 4 - 27 mU/mL 11/27/2024 4:03 AM CDT Hers Comment: INTERPRETIVE INFORMATION: Erythropoietin Normal serum concentrations [...] may benefit from therapy with recombinant EPO ([facility] [phone],1989). Performed By: [facility] [address] [place] [address] Typewriter Aligner: Patrick Locke MD, PhD CLIA Number: [id number] Blood Venipuncture / Unknown 11/25/2024 12:16 PM CDT 11/25/2024 12:16 PM CDT us Zoe Auguste APRN, CNP LAB_1 Final R esult Performing Organization Address City/State/[facility] Co de Phone Number [facility] [address] [place], [place] [address] [place] [address] documented in this encounter Visit Diagnoses Diagnosis Elevated hemoglobin (HRC) Other hemoglobinopathies documented in this encounter Care Teams Brazing Machine Tender Relationship Specialty Start Date End Date Zoe Auguste APRN, MASTER CONTROL ENGINEER [address] [place] [address] PCP - General 05/05/13 documented as of this encounter
--- OUTSIDE RECORDS SUMMARY | 2024-12-07 22:16 | XMS_ITS | Encounter Summary ---
Author Organization [facility] Address [address] [place] [address] Support Name Relationship Address Phone Jae Sales Emergency Contact [address] [place] [address] Declined 08/30 Emergency Contact Unknown Unavaila ble Care Team Providers Care Label Drier Name Role Phone Zoe Auguste APRN, CNP Primary Care Provider Reason for Visit * Procedure/Equipment (Routine) - Closed Specialty Diagnoses / Procedures Referred By Kaiserac t Referred To Contact Diagnoses Epigastric pain LLQ abdominal pain RLQ abdominal pain Procedures CT Abd Pelvis W IV Cont CT Abd Pelvis W/WO IV Cont Zoe Auguste APRN, CNP [address] [place] [address] Phone: tel: fax: Referral ID Status Reason Start Date Expiration Date Visits Re quested Visits Authorized [id number] Closed 11/09/2024 01/09/2025 1 1 Encounter Details Date Type Department Care Team (Latest Contact Info) Description 11/09/2024 10:20 AM CDT Ancillary Procedure [place] Scan [address] [place], [place] [address] Zoe Auguste APRN, CNP [address] [place] [address] Epigastric pain; LLQ abdominal pain; RLQ abdominal pain Social History Tobacco Use Types Packs/Day [...] Info) Description 12/15/2024 11:30 AM CDT Appointment [facility] [address] [address] [address] [place] [phone] Zoe Auguste, TECHNOLOGY PROFESSIONAL, SECOND FACING BASTER [address] [place], [place] [address] 12/17/2024 9:15 AM CDT Appointment [facility]- Plastic Surgery [address] [facility] [place], [place] [address] [place] [address] [place] [address] 12/21/2024 1:40 PM CDT Appointment Otolaryngology at [facility] [address] [place] [phone] Rajesh Mendes PA-C [address] [place], [place] [phone] documented as of this encounter Procedures Procedure Name Priority Date/Time Associated Diagnosis Comments CT ABD PELVIS W IV CONT Routine 11/09/2024 10:08 AM CDT Epigastric pain LLQ abdominal pain RLQ abdominal pain documented in this encounter Results * CT Abd Pelvis W IV Cont [...] 4. Pelvic floor prolapse. Zoe Auguste APRN, SECOND FACING BASTER RAD CT Final R esult documented in this encounter Visit Diagnoses Diagnosis Epigastric pain Abdominal pain, epigastric LLQ abdominal pain Abdominal pain, left lower quadrant RLQ abdominal pain Abdominal pain, right lower quadrant documented in this encounter Administered Medications Inactive Administered Medications - up to 3 most recent administrations Medication Order MAR Action Action Date Dose Rate Site iohexol (OMNIPAQUE 350) 350 MG/ML injection 75 mL 75 mL, Intravenous, ONCE, On Fri11/09/24 at 1030, For 1 doseIndications:Epigastric pain,LLQ abdominal pain,RLQ abdominal pain Given 11/09/2024 10:09 AM CDT 75 mL sodium chloride 0.9% injection 20 mL 20 mL, Intravenous, ONCE, On Fri11/09/24 at 1030, For 1 doseIndications:Epigastric pain,LLQ abdominal pain,RLQ abdominal pain Given 11/09/2024 10:09 AM CDT 20 mL documented in this encounter Care Teams Label Drier Relationship Specialty Start Date End Date Zoe Auguste, TECHNOLOGY PROFESSIONAL, SECOND FACING BASTER [address] [place] [address] PCP - General 05/05/13 documented as of this encounter
--- OUTSIDE RECORDS SUMMARY | 2024-12-07 22:16 | XMS_ITS | Encounter Summary ---
Author Organization [facility] Address [address] [place] [address] Support Name Relationship Address Phone Jae Sales Emergency Contact [address] [place] [address] Declined 08/30 Emergency Contact Unknown Unavaila ble Care Team Providers Care Parts Room Clerk Name Role Phone Zoe Auguste APRN, JESSICA Primary Care Provider Reason for Visit * Reason Comments Plan of Care Pantoprazole dose Encounter Details Date Type Department Care Team (Late st Contact Info) Description 11/05/2024 Telephone [facility] [address] [place] [address] Zoe Auguste APRN, TELEVISION ENGINEERING TEACHER [address] [place] [address] Plan of Care (Pantoprazole dose) Social History Tobacco Use Types Packs/Day Years [...] as of this encounter Nursing Notes * Barbara Dukes MA - 11/10/2024 10:25 AM CDT Left message for patient to call back. Frontline[facility] ([facility]), please warm transfercall to extension [phone] to discuss. If no answer at extension, re-route to CSS (Clinical Audioprosthologist). Message to Patient/Caller: She can continue to take 40 mg of pantoprazole in the am, an hour prior to eating breakfast. * Linda Nath LPN - 11/08/2024 11:04 AM CDT Left message for patient to call back. [facility]line[facility] ([facility]), please warm transfercall to extension [phone] to discuss. If no answer at extension, re-route to CSS (Clinical Audioprosthologist). Message to Patient/Caller: See below * Zoe Auguste APRN, JESSICA - 11/08/2024 10:55 AM CDT She can continue to take 40 mg of pantoprazole in the am, an hour prior to eating breakfast. * Cira Balderrama - 11/05/2024 1:41 PM CDT Pt called back, she stated she would like to remain on pantoprazole. She would like a call back if she needs to change the directions such as taking one at in the morning and one at night. * Seema Huynh LPN - 11/05/2024 11:13 AM CDT Left message for patient to call back. Frontline/Patient Service Center ([facility]), please warm transfercall to extension [phone] to discuss. If no answer at extension, re-route to CSS (Clinical Audioprosthologist). Message to Patient/Caller: Please review msg below amd send Zoe Auguste her response: We could either remain at this dose (of Pantoprazole), or try a different PPI such as Nexium. Of note, I am about to leave for the day, however will check my messages again on Friday. * Zoe Auguste APRN, CNP - 11/05/2024 10:46 AM CDT We could either remain at this dose, or try a different PPI such as Nexium. Of note, I am about to leave for the day, however will check my messages again on Friday. * Seema Huynh LPN - 11/05/2024 10:13 AM CDT I called and talked to Pamela and she is taking Pantoprazole 40 mg, 2 tabs in the morning * Zoe Auguste APRN, CNP - 11/05/2024 9:28 AM CDT Can you please call Pamela and verify her dose of pantoprazole? Thank you. documented in this encounter Plan of Treatment Upcoming Encounters Date Type Department Care Team (Late st Contact Info) Description 12/15/2024 11:30 AM CDT Appointment [facility] [address] [address] [place] [address] [place] [address] Zoe Auguste APRN, TELEVISION ENGINEERING TEACHER [address] [place] [place] [phone] 12/17/2024 9:15 AM CDT Appointment [facility]- Plastic Surgery [address] [facility] [place] [address] Galdino Longoria MD [address]00 [place] [address] 12/21/2024 1:40 PM CDT Appointment Otol[facility]ology at [facility] [address] [place] [phone] Rajesh Mendes, PA-C [address] [place], [place] [phone] documented as of this encounter Visit Diagnoses Not on filedocumented in this encounter Care Teams Parts Room Clerk Relationship Specialty Start Date End Date Zoe Auguste APRN, TELEVISION ENGINEERING TEACHER [address] [place] [address] PCP - General 05/05/13 documented as of this encounter
--- OUTSIDE RECORDS SUMMARY | 2024-12-07 22:16 | XMS_ITS ---
Author Organization [facility] Address [address] [address] Support Name Relationship Address Phone Jae Sales Emergency Contact [address] [place] [address] Declined 08/30 Emergency Contact Unknown Unavaila ble Care Team Providers Care Labor Relations Teacher Name Role Phone Zoe Auguste APRN, ZOO CARETAKER Primary Care Provider Active Problems Problem Noted [...] Cough 06/01/2003 Benign paroxysmal positional vertigo 06/17/2002 Current Treatment and Therapy Plans No current plan information found. Past Treatment and Therapy Plans No past plan information found. Lifetime Dose Tracking * Chemical Lifetime Dose Automatic Entry Manual Entr y Fluoro Time 2.55 minutes 2.55 minutes 0 minutes Total Air Kerma 9.82 mGy 9.82 mGy 0 mGy Resolved Problems Problem Noted Date Diagnosed Date Resolved Date Closed displaced fracture of lesser trochanter of right femur 08/27/2019 10/18/2019 Overview (08/27/2019): Added automatically from request for surgery [id number] Leg swelling 10/06/2013 08/26/2016 Encounter for antineoplastic chemotherapy 06/03/2013 08/26/2016 Malignant neoplasm of female breast 04/30/2013 01/10/2021 Overview (04/02/2017): Malignant neoplasm of breast (female), unspecified site (HRC) Hemorrhoid 11/18/2012 08/26/2016 Chronic systolic heart failure 10/01/2012 12/15/2018 Essential hypertension 07/09/201108/26 Dyspnea 05/18/2011 08/26/2016 Chest pain 05/18/2011 08/26/2016 Seasonal allergies 05/18/2011 7
--- OUTSIDE RECORDS SUMMARY | 2024-12-07 22:16 | XMS_ITS | Encounter Summary ---
Author Organization [facility] Address [address] [place] [id number] Support Name Relationship Address Phone Jae Sales Emergency Contact [id number] [place] [address] Declined 08/30 Emergency Contact Unknown Unavaila ble Care Team Providers Care Program Medical Director Name Role Phone MolinaZoe APRN, COAL SHOVELER Primary Care Provider Reason for Visit * Reason Comments PRE-OP EXAM DOS: 12/30 LEFT TOTAL KNEE ARTHROPLASTY Encounter Details Date Type Department Care Team (Late st Contact Info) Description 12/02/2024 1:30 PM CDT Pre-Op Visit [facility] [address] [place], [place] [id number] Sophie Juarze APRN, COAL SHOVELER [id number] [place] [id number] Preop examination (Primary Dx); Dilated cardiomyopathy (HRC); Essential hypertension (HRC); Hypercholesterolemia; LBBB (left bundle branch block); H/O bilateral mastectomy; Polycythemia Social History Tobacco Use Types Packs/Day Years [...] F) 12/02/2024 1:25 PM CDT Respiratory Rate - - Oxygen Saturation - - Inhaled Oxygen Concentration - - Weight 94.9 kg (209 lb 3.2 oz) 12/02/2024 1:24 P M CDT Height 161.3 cm (5' 3.5) 12/02/2024 1:24 PM CDT Body Mass Index 36.48 12/02/2024 1:24 PM CDT documented in this encounter Patient Instructions * Patient Instructions* Sophie Juarez APRN, JESSICA - 12/02/2024 1:30 PM CDT Pamela Sales, It was so nice to see you today. EKG today Lab (2nd floor) I will check with Dr. Megan Siddiqui to make sure you don't need an echo before surgery. Check out the [employer] card. [email or web address] If you have any questions, please call [phone]. Take Care, Sophie Juarez APRN, COAL SHOVELER Internal Medicine, [facility] losartan (COZAAR) 25 MG tablet [[id number]] - Do not take on the morning of procedure. furosemide (LASIX) 20 MG tablet [[id number]] - Do not take on the morning of procedure. Follow your individualized medication recommendations as described above. In addition, please stop all gutq-cfv-kugtvgw medications including aspirin, ibuprofen (Advil, Motrin), naproxen (Aleve, Naprosyn), herbal remedies and supplements one week prior to procedure unless directed otherwise by your care team. You may continue to take acetaminophen (Tylenol) up to the dayof your procedure. Continue all other medications as currently taking. Let your care team know if you have questions. On the day of your procedure, do not wear any hair product including hair sprays and gels and avoidusing body sprays and deodorants/antiperspirants. Bring with you to the site of the procedure: Any oral appliances or CPAP equipment related to sleep apnea Any other health-related equipment or devices you use daily documented in this encounter OR Notes * H&P - Sophie Juarez APRN, CNP - 12/02/2024 1:30 PM CDT Pre-Operative Assessment 12/02/2024 Pre-Op Assessment Procedure Details Procedure Left knee repleacement Surgeon Amari Cole MD Location Other Other Location Name [facility] Procedure Date 12/30/2024 F: attn: Julisa Ramirez Direct dial: [phone] Eduardo Santiago is a 79 y.o. old female here for pre-operative evaluation for procedure noted above. The patient denies any complications with intravenous anesthesia in the past or family history of anesthesia complications including malignant hyperthermia. No reported history of post-operative nausea and vomiting as well as motion sickness or vertigo. Denies taking any GLP-1 medications or phentermine. The patient is not taking naltrexone. Denies chest pain, shortness of breath or edema. Does not have loose teeth or removable dental appliances. No history of any blood clots or bleeding disorders. Patient Active Problem List Diagnosis Date Noted Epigastric pain 12/02/2024 Peripheral polyneuropathy 11/05/2024 H/O bilateral mastectomy 01/10/2021 Elevated hemoglobin (HRC) 01/10/2021 Chronic constipation 01/10/2021 Insomnia 01/10/2021 Hypercholesterolemia 10/18/2019 Sliding hiatal hernia 07/09/2017 Hx of colonic polyp 11/18/2012 Obesity, Class II, BMI 35-39.9 (HRC) 03/09/2012 Overview Note: Obesity, unspecified Essential hypertension (HRC) 03/09/2012 LBBB (left bundle branch block) 03/09/2012 Dilated cardiomyopathy (HRC) 05/19/2011 Overview Note: Her cardiomyopathy was initially diagnosed in 2010 when she presented to the hospital on May 2011. In that note it was mentioned that she presented because of shortness of breath and her ejectionfraction demonstrated EF of 30%. -Most recent EF 40%, due for follow up 11/2024 Cough 06/01/2003 Benign paroxysmal positional vertigo 06/17/2002 Past Medical History: Diagnosis Date Breast cancer ([facility]) Chronic constipation Closed displaced fracture of lesser trochanter of right femur ([facility]) 08/27/2019 Added automatically from request for surgery [id number] Essential hypertension ([facility]) 07/09/2011 Malignant neoplasm of breast (female), unspecified site ([facility]) 04/30/2013 Sliding hiatal hernia 07/09/2017 Past Surgical History: Procedure Laterality Date BREAST BIOPSY BREAST RECONSTRUCTION FEMUR SURGERY HIP SURGERY Right 08/27/2019 ORIF of right proximal femur fracture with intramedullary nail. Done on August 27, 2019 HX APPENDECTOMY HYSTERECTOMY 04/07/2017 Davinci assisted supracervical hysterectomy INCONTINENCE SURGERY 04/07/2017 Midurethral sling LAP CHOLECYSTECTOMY MASTECTOMY 11/2013 bilateral SALPINGO-OOPHORECTOMY Bilateral 04/07/2017 VAGINAL PROLAPSE REPAIR 04/07/2017 Davinci assisted sacrocolpopexy, enterocele repair, posterior repair (mod 22) Current Outpatient Medications Medication Instructions calcium carbonate 600 mg, BID carvedilol (COREG) 6.25 MG tablet Take 2 tabs (12.5 mg) in the morning; Take 1 tab (6.25) in the evening docusate sodium (COLACE) 100 mg, Oral, BID furosemide (LASIX) 20 MG tablet Take daily as needed for SOB or ankle swelling. lactulose (CEPHULAC) 10 GM/15ML solution 30 mL, TID losartan (COZAAR) 25 mg, Oral, DAILY pantoprazole DR (PROTONIX) 40 mg, Oral, BID AC polyethylene glycol 3350 (GLYCOLAX) 17-34 g, Oral, DAILY, Mix in 4-8 ounces of liquid and drink Vitamin D-Vitamin K (VITAMIN K2-VITAMIN D3 OR) No dose, route, or frequency recorded. 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 Patient is postmenopausal. Family History Problem Relation Name Age of Onset Heart Failure Mother Cancer, Colon Father Diabetes Sister Cancer Sister Cancer, Breast Sister 40 Cataract Negative Family History Glaucoma Negative Family History Macular Degeneration Negative Family History Retinal Detachment Negative Family History Amblyopia/Strabismus Negative Family History Review of Systems: 12/02/2024 ET Amb PreOp Assessment Sx Have you had a heart attack in the last 30 days? No Have you experienced chest tightening or chest pressure with activity? No Do you wake at night with difficulty breathing? No Do you have swelling in your feet or ankles? No Do you get short of breath if lying flat at night? No Do you hear wheezing or whistling when you breathe? No Have you had a cough, runny nose, or cold symptoms in the last 2 weeks? No Have you tested positive for Covid in the last 6 months? No Do you have a long-standing cough? No Do you snore or are you sleepy during the day? No Do you have any symptoms due to a recent concussion? No Do you or close relatives have bleeding or clotting problems? No Have you taken Aspirin, Ibuprofen (Advil) or Naproxen (Aleve) in the last 7 days? Yes Do you or close relatives have a history of a severe or life-threatening reaction to anesthesia? No Estimated Functional Capacity Can you climb one flight of stairs, or walk up a gradual uphill without stopping? yes, functional capacity is more than or equal to 4 METS Objective BP 135/74 (BP Location: Right Arm, BP Cuff Size: Regular - Long) Pulse (!) 51 Temp 36.5 ??C (97.7 ??F) (Oral) Ht 1.613 m (5' 3.5) Wt 94.9 kg (209 lb 3.2 oz) BMI 36.48 kg/m?? Physical Exam: General Appearance: alert, well appearing, and in no apparent distress Eyes: lids normal, sclera clear, and conjunctiva normal ENT: oropharynx clear and no oral lesions Neck: no lymphadenopathy and no thyromegaly or nodules Heart: regular rate and rhythm, no murmurs, gallops or rubs, and normal S1 and S2 Lungs: clear to auscultation and no wheezes, rales or rhonchi Abdomen: soft, nondistended, nontender, no palpable masses, and no organomegaly Extremities: no edema and normal pedal pulses Skin: no rashes or worrisome lesions Neurologic: normal speech, no facial droop, alert and oriented x 3, and normal gait Data: Labs: Yes: Sodium Date Value Ref Range Status 11/05/2024 138 136 - 145 mmol/L Final Potassium Date Value Ref Range Status 11/05/2024 4.4 3.5 - 5.1 mmol/L Final Creatinine Date Value Ref Range Status 11/05/2024 0.73 0.55 - 1.02 mg/dL Final Hemoglobin Date Value Ref Range Status 11/05/2024 17.7 (H) 12.0 - 15.5 g/dL Final Hemoglobin A1C Date Value Ref Range Status 01/10/2021 5.6 <=5.6 % Final Hemoglobin A1C (Rapid) Date Value Ref Range Status 11/05/2024 5.5 <=5.6 % Final Glucose Date Value Ref Range Status 03/10/2024 108 (H) 70 - 100 mg/dL Final Comment: The given reference range is for the fasting state. Non-fasting reference range for glucose is 70 -180 mg/dL. ECG: Today: 12/02/2024. Narrative & Impression Sinus rhythm with frequent Premature ventricular complexes in a pattern of bigeminy Left axis deviation Left bundle branch block Abnormal ECG When compared with ECG of 09-MAR-2020 11:32, Premature ventricular complexes are now Present T wave inversion no longer evident in Anterior leads QT has lengthened Confirmed by Paul Nixon ([id number]) on 12/02/2024 2:53:43 PM Assessment/Plan Patient is medically optimized for planned procedure(s). ICD-10-CM 1. Preop examination Z01.818 ECG 12 Lead (Clinical Historical Site Guide to perform) CANCELED: Complete Blood Count-No Diff CANCELED: Basic Metabolic Panel 2. Dilated cardiomyopathy (HRC) I42.0 ECG 12 Lead (Clinical Historical Site Guide to perform) 3. Essential hypertension (HRC) I10 4. Hypercholesterolemia E78.00 5. LBBB (left bundle branch block) I44.7 6. H/O bilateral mastectomy Z90.13 7. Polycythemia D75.1 JAK2 (V617F) Mutation by ddPCR, Qualitative I sent a message to her cloud developer, Dr. Megan Siddiqui, who cleared her for the procedure. Her non-ischemic cardiomyopathy is well controlled. Special risks: Thromboembolism elevated risk, recommend post operative prophylaxis. Patient's cardiovascular condition is medically managed and stable. Stress testing not indicated. Medication recommendations: Patient Instructions Pamela Sales, It was so nice to see you today. EKG today Lab (2nd floor) I will check with Dr. Megan Siddiqui to make sure you don't need an echo before surgery. Check out the Room n House savings card. losartan (COZAAR) 25 MG tablet [[id number]] - Do not take on the morning of procedure. furosemide (LASIX) 20 MG tablet [[id number]] - Do not take on the morning of procedure. Follow your individualized medication recommendations as described above. In addition, please stop all uxfb-jjm-[id number] medications including aspirin, ibuprofen (Advil, Motrin), naproxen (Aleve, Naprosyn), herbal remedies and supplements one week prior to procedure unless directed otherwise by your care team. You may continue to take acetaminophen (Tylenol) up to the dayof your procedure. Continue all other medications as currently taking. Let your care team know if you have questions. On the day of your procedure, do not wear any hair product including hair sprays and gels and avoidusing body sprays and deodorants/antiperspirants. Bring with you to the site of the procedure: Any oral appliances or CPAP equipment related to sleep apnea Any other health-related equipment or devices you use daily Electronically signed by: Sophie Juarez APRN, JESSICA 12/02/2024, 4:07 PM documented in this encounter Plan of Treatment Upcoming Encounters Date Type Department Care Team (Late st Contact Info) Description 12/15/2024 11:30 AM CDT Appointment [facility] [id number] [facility] [address] [address] [place] [phone] Zoe Auguste APRN, COAL SHOVELER [address] [place] [id number] 12/17/2024 9:15 AM CDT Appointment Dania Nunez [facility] Surgery [address] [facility] [place] [address] Galdino Longoria MD [address] [place], [place] [address] 12/21/2024 1:40 PM CDT Appointment Otolaryngology at [facility] [id number] [place] [phone] Rajesh Mendes PA-C [address] [place], [place] [phone] Scheduled Orders Name Type Priority Associated Diagnoses Orde r Schedule JAK2 (V617F) Mutation by ddPCR, Qualitative Lab Routine Polycythemia Expected: 12/02/2024, Expires: 03/02/2025 documented as of this encounter Procedures Procedure Name Priority Date/Time Associated Diagnosis Comments ECG 12 LEAD OUTPATIENT Routine 12/02/2024 2:17 PM CDT Preop examination Dilated cardiomyopathy (HRC) documented in this encounter Results * ECG 12 Lead (Clinical Historical Site Guide to perform) (12/02/2024 2:17 PM CDT) Ventricular Rate 65 BPM MUSE GHP Atrial Rate 65 BPM MUSE GHP P-R Interval 178 ms MUSE GHP QRS Duration 166 ms MUSE GHP QT 502 ms MUSE GHP QTC 522 ms MUSE GHP P [place] 67 degrees MUSE GHP R [place] -30 degrees MUSE GHP T [place] 137 degrees MUSE GHP 12/02/2024 2:17 PM [...] ([id number]) on 12/02/2024 2:53:43 PM Sophie Juarez CENTRIFUGAL SCREEN TENDER, COAL SHOVELER PN ECG ORDERABLES F inal Result [facility] [address] [place] [address] documented in this encounter Visit Diagnoses Diagnosis Preop examination- Primary Preoperative examination, unspecified Dilated cardiomyopathy (HRC) Other primary cardiomyopathies Essential hypertension (HRC) Unspecified essential hypertension Hypercholesterolemia Pure hypercholesterolemia LBBB (left bundle branch block) Other left bundle branch block H/O bilateral mastectomy Acquired absence of breast and nipple Polycythemia Polycythemia vera documented in this encounter Care Teams Program Medical Director Relationship Specialty Start Date End Date Zoe Auguste, CENTRIFUGAL SCREEN TENDER, COAL SHOVELER [address] [place] [address] PCP - General 05/05/13 documented as of this encounter
--- NOTE | 2024-12-07 22:21 | ED.GENADULT ---
HPI - General Adult General Time Seen by Provider: 22:21 Date Seen: 12/07/24 Chief complaint: Unspecified Complaint, Adult Stated complaint: Numbness in lips Time Seen by Provider: 12/07/24 22:20 Source: patient Mode of arrival: ambulatory Limitations: no limitations History of Present Illness HPI narrative: 79-year-old female presents today with numbness and tingling in her lips. She has noticed this off and on during the course the day, both upper and lower lip on the left side extending the cord of the mouth but not beyond. Denies slurred speech, difficulty eating, tongue numbness, vision changes. No numbness tingling of the upper lower extremities, no weakness. Related Data Home Medications ?Medication ?Instructions ?Recorded ?Confirmed lorazepam 0.5 mg tablet 0.5 mg PO Q12H PRN 04/04/22 04/02/24 losartan 25 mg tablet 25 mg PO DAILY 04/04/22 04/02/24 carvedilol 6.25 mg tablet See Rx Instructions PO .ud 04/02/24 04/02/24 pantoprazole 40 mg tablet,delayed 40 mg PO QDAY 04/02/24 04/02/24 release Allergies Allergy/AdvReac Type Severity Reaction Status Date / Time No Known Drug Allergies Allergy Verified 12/07/24 23:07 [facility] PFS Medical History Hx of uterine prolapse ?Z87.42 - Personal history of other diseases of the female genital tract (ICD-10) Surgical History History of hysterectomy ?Z90.710 - Acquired absence of both cervix and uterus (ICD-10) Hx of bilateral mastectomy ?Z90.13 - Acquired absence of bilateral breasts and nipples (ICD-10) History of cholecystectomy ?Z90.49 - Acquired absence of other specified parts of digestive tract (ICD-10) History of appendectomy ?Z90.49 - Acquired absence of other specified parts of digestive tract (ICD-10) Family History Father Cancer Mother DM (diabetes mellitus), type 2 CHF (congestive heart failure) Sister Seizures Social History Highest level of school completed/degree received: high school graduate Smoking Status: Never smoker How often do you have a drink containing alcohol: never AUDIT-C Alcohol total score: 0 Non-prescribed substance use: denies use Caffeine: Yes (coffee) service: No Exam Narrative: Exam Narrative: General: Well-developed and well-nourished, no acute distress Head: Atraumatic and normocephalic Eyes: Pupils are equal reactive, extraocular motions intact, conjunctiva clear ENT: External nose and ears are normal, posterior pharynx without erythema or exudate Neck: No midline cervical tenderness, full spontaneous range of motion the neck, trachea midline, no adenopathy Heart: Regular rate and irregular rhythm Lungs: Clear to auscultation bilaterally without wheezes or crackles Abdomen: Soft, nontender, nondistended with active bowel sounds Musculoskeletal: No tenderness, deformity, or edema Neurologic: Awake, alert, and oriented x3, no gross focal neurologic deficits, cranial nerves intact as tested Psych: Mood and affect are appropriate Skin: No rashes Const: Vital Signs, click to edit/add: Vital Signs - 24 hr 12/07/24 22:28 12/07/24 22:36 12/07/24 22:37 Temperature 97.9 F 98.2 F Pulse Rate 65 Pulse Rate [Pulse Oximeter] 63 Respiratory Rate 18 16 Blood Pressure 137/72 Blood Pressure [Ri ght Upper Arm] 156/89 H Pulse Oximetry 95 93 95 Oxygen Delivery Me thod Room Air 12/07/24 23:02 12/07/24 23:22 Temperature Pulse Rate 64 64 Pulse Rate [Pulse Oximeter] Respiratory Rate 12 17 Blood Pressure 140/62 H 129/60 Blood Pressure [Ri ght Upper Arm] Pulse Oximetry 95 95 Oxygen Delivery Me thod Course Course ED Course: Reviewed most recent primary care visit from December 02 which was a preoperative exam for knee replacement, history dilated cardiomyopathy, ejection fraction 40%, also history of breast cancer status post mastectomy and breast reconstruction. Patient presents today with intermittent tingling of the upper and lower lip in the corner of the mouth on the left side. No facial droop, no other numbness or tingling of the extremities or face, no slurred speech or difficulty dinner swelling. On exam here, patient's finally stable, EKG with frequent PVCs but no other acute findings. No focal decreased sensation on exam, no facial asymmetry, no weakness or ataxia of the extremities. Labs ordered along with CT scan of the head neck. If this is negative, patient can be discharged and follow-up as an outpatient EKG independently interpreted by me performed at 10:26 p.m. demonstrates sinus rhythm with frequent PVCs, rate 75, QTC 531, NM 180, no acute ischemic changes, no prior for comparison. Reevaluation(s) Time of Reevaluation #1: 23:42 Reevaluation #1: CTA of the head demonstrates moderate to severe narrowing of the right P3 segment, no other acute intracranial findings, multilevel degenerative changes with central stenosis at C5-6 and C6-7 are present. Time of Reevaluation #2: 23:52 Reevaluation #2: Care discussed with Dr. Duenas, neurology recommends dual anti-platelet loading tonight, admission for further stroke workup. Updated patient with findings and plan. Patient to have surgery December 30 and will need to adjust anticoagulation accordingly. Time of Reevaluation #3: 00:12 Reevaluation #3: Care discussed with [facility] hospitalist for admission Vital Signs Vital signs: Initial Vital Signs Temperature 97.9 F 12/07/24 22:28 Temperature Source Temporal Artery Scan 12/07/24 22:28 Pulse Rate 63 12/07/24 22:28 Respiratory Rate 18 12/07/24 22:28 Blood Pressure 156/89 H 12/07/24 22:28 Blood Pressure Mean 111 H 12/07/24 22:28 Blood Pressure Position Sitting 12/07/24 22:28 Pulse Oximetry 95 12/07/24 22:28 Oxygen Delivery Method Room Air 12/07/24 22:28 Vital Signs Temperature 97.9 F 12/07/24 22:28 Pulse Rate 63 12/07/24 22:28 Respiratory Rate 18 12/07/24 22:28 Blood Pressure 156/89 H 12/07/24 22:28 Pulse Oximetry 95 12/07/24 22:28 Oxygen Delivery Method Room Air 12/07/24 22:28 Temperature 98.2 F 12/07/24 22:36 Pulse Rate 64 12/07/24 23:22 Respiratory Rate 17 12/07/24 23:22 Blood Pressure 129/60 12/07/24 23:22 Pulse Oximetry 95 12/07/24 23:22 Oxygen Delivery Method Room Air 12/07/24 22:28 Medications Administered Medications: Generic Name Dose Route Start Last Admin Trade Name Smitha PRN Reason Stop Dose Admin Aspirin 324 mg 12/07/24 23:58 12/08/24 00:02 Aspirin 81 Mg Tab.Chew PO 12/07/24 23:59 324 mg ONCE ONE Administration Clopidogrel Bisulfate 300 mg 12/07/24 23:58 12/08/24 00:02 Clopidogrel 300 Mg Tablet PO 12/07/24 23:59 300 mg ONCE ONE Administration Medical Decision Making Lab Data Labs: Lab Results 12/07/24 12/08/24 Range/Units 22:35 00:01 Magnesium 2.0 (1.5-2.6) mg/dL Lab Acknowledgement Test Added Discharge Plan Discharge Clinical Impression: Paresthesia, TIA (transient ischemic attack), Chronic heart failure with reduced ejection fraction (HFrEF, <= 40%), Dilated cardiomyopathy, Polycythemia Patient Disposition: Admitted As Observation Condition: Stable Activity Level: Activity as Tolerated Discharge Diet: Heart Healthy (2 gm sodium, low fat)
[2024-12-07 22:28] VITALS: BP 156/89; PULSE 63; RESP 18; TEMP 36.6; O2SAT 95; BMI 36.0
--- NOTE | 2024-12-07 22:32 | CRLHL7_ITS ---
For Patients: As a result of the Century Cures Act, medical imaging exams and procedure reports are released immediately into your electronic medical record. You may view this report before your referring provider. If you have questions, please contact your health care provider. INDICATION: Acute stroke, left lower facial paresthesia. TECHNIQUE: CTA neck with contrast bolus tracking, 3D angiographic rendering using maximum intensity projection (MIP) and images permanently archived. FINDINGS: There is scattered atherosclerotic disease involving the major cervical vasculature. There is no significant carotid artery stenosis or dissection. There is no significant vertebral artery stenosis or dissection. The soft tissues of the neck are within normal limits. Advanced degenerative changes are noted in the cervical spine, with severe central canal stenosis in the lower cervical spine. IMPRESSION: No significant carotid or vertebral artery stenosis or dissection. Please note that all CT scans at this facility use dose modulation, iterative reconstruction, and/or weight-based dosing when appropriate to reduce radiation dose to as low as reasonably achievable. Dictated by Pete Smith MD @ 12/08/2024 7:07:50 AM (Electronically Signed)
--- NOTE | 2024-12-07 22:32 | CRLHL7_ITS ---
For Patients: As a result of the Century Cures Act, medical imaging exams and procedure reports are released immediately into your electronic medical record. You may view this report before your referring provider. If you have questions, please contact your health care provider. INDICATION: Acute stroke, left lower facial paresthesia. TECHNIQUE: CTA head with contrast bolus tracking, 3D angiographic rendering using maximum intensity projection (MIP) and images permanently archived. FINDINGS: There is scattered intracranial atherosclerotic disease. There is normal opacification of the intracranial vasculature. There is no large vessel occlusion. No aneurysm is identified. IMPRESSION: No large vessel occlusion. Please note that all CT scans at this facility use dose modulation, iterative reconstruction, and/or weight-based dosing when appropriate to reduce radiation dose to as low as reasonably achievable. Dictated by Pete Smith MD @ 12/08/2024 7:09:18 AM (Electronically Signed)
--- NOTE | 2024-12-07 22:32 | CRLHL7_ITS ---
For Patients: As a result of the Century Cures Act, medical imaging exams and procedure reports are released immediately into your electronic medical record. You may view this report before your referring provider. If you have questions, please contact your health care provider. Indication: Left lower facial paresthesia Technique: Noncontrast CT through the head with multiplanar reformats Comparison: None Findings: Brain: No acute hemorrhage. No acute infarct. No significant mass effect or midline shift. No gross evidence of a mass lesion or cerebral edema. Severe chronic microvascular ischemic disease. Mild global parenchymal volume loss. Ventricles: No acute abnormality appreciated. Orbits, sinuses, mastoids: No acute abnormality appreciated. Calvarium and soft tissues: No acute abnormality appreciated. Impression: No acute intracranial abnormality appreciated. Please note that all CT scans at this facility use dose modulation, iterative reconstruction, and/or weight-based dosing when appropriate to reduce radiation dose to as low as reasonably achievable. Dictated by Patrice Stone MD @ 12/07/2024 11:31:31 PM (Electronically Signed)
[2024-12-07 22:36] VITALS: BP 137/72; PULSE 65; RESP 16; TEMP 36.8; O2SAT 93
[2024-12-07 22:37] VITALS: O2SAT 95
[2024-12-07 23:02] VITALS: BP 140/62; PULSE 64; RESP 12; O2SAT 95
--- OUTSIDE RECORDS SUMMARY | 2024-12-07 23:10 | XMS_ITS | Encounter Summary ---
[facility] Organization [facility] Address [address], [place] [address] Support Name Relationship Address Phone Jae Sales Emergency Contact [address] [place] [address] Declined 08/30 Emergency Contact Unknown Unavaila ble Care Team Providers Care Solid Waste Division Supervisor Name Role Phone Zoe Auguste APRN, CNP Primary Care Provider Encounter Details Date Type Department Care Team (Late Contact Info) Description 11/25/2024 1:00 PM CDT Lab Visit [facility] [address] [place] [address] Elevated hemoglobin (HRC) Social History [...] 12/15/2024 11:30 AM CDT Appointment Dania Aguilar [address] [address] [place] [address] [place] [address] Zoe Auguste APRN, CNP [address] [place] 156407 12/17/2024 9:15 AM CDT Appointment [facility]- Plastic Surgery [address] [place] [address] Galdino Longoria MD [address] [place] [address] 12/21/2024 1:40 PM CDT Appointment Otolaryngology at [address] [phone] Rajesh Mendes PA-C [address] [place], [place] [phone] documented as of this encounter Procedures Procedure Name Priority Date/Time Associated Diagnosis Comments ERYTHROPOIETIN Routine 11/25/2024 12:16 PM CDT Elevated hemoglobin (HRC) documented in this encounter Results * Erythropoeitin (11/25/2024 12:16 PM CDT) Erythropoietin 12 4 - 27 mU/mL 11/27/2024 4:03 AM CDT [facility] Comment: INTERPRETIVE INFORMATION: Erythropoietin Normal serum concentrations [...] may benefit from therapy with recombinant EPO ([facility] [id number],1989). Performed By: [facility] [address] [place] [address] Editorial Clerk: Patrick Locke MD, PhD CLIA Number: [id number] Blood Venipuncture / Unknown 11/25/2024 12:16 PM CDT 11/25/2024 12:16 PM CDT us Zoe Auguste APRN, CNP LAB_1 Final R esult Performing Organization Address City/State/[facility] Co de Phone Number [facility] [address] [place], [place] [address] [place] [address] documented in this encounter Visit Diagnoses Diagnosis Elevated hemoglobin (HRC) Other hemoglobinopathies documented in this encounter Care Teams Solid Waste Division Supervisor Relationship Specialty Start Date End Date Zoe Auguste APRN, NEWS EDITOR [address] [place] [address] PCP - General 05/05/13 documented as of this encounter
--- OUTSIDE RECORDS SUMMARY | 2024-12-07 23:10 | XMS_ITS | Encounter Summary ---
Author Organization [facility] Address [address] [place] [address] Support Name Relationship Address Phone Jae Sales Emergency Contact [address] [place] [address] Declined 08/30 Emergency Contact Unknown Unavaila ble Care Team Providers Care Store Host Name Role Phone MolinaZoe APRN, APPLIANCE REPAIRER Primary Care Provider Reason for Visit * Reason Comments PRE-OP EXAM DOS: 12/30 LEFT TOTAL KNEE ARTHROPLASTY Encounter Details Date Type Department Care Team (Late st Contact Info) Description 12/02/2024 1:30 PM CDT Pre-Op Visit [facility] [address] [place], [place] [phone] Sophie Juarez APRN, APPLIANCE REPAIRER [id number] [place] [address] Preop examination (Primary Dx); Dilated cardiomyopathy [...] an echo before surgery. Check out the [employer] card. [email or web address] If you have any questions, please call [phone]. Take Care, Sophie Juarez APRN, APPLIANCE REPAIRER Internal Medicine, [facility] losartan (COZAAR) 25 MG tablet [[id number]] - Do not take on the morning of procedure. furosemide (LASIX) 20 MG tablet [[id number]] - Do not take on the morning of procedure. Follow your individualized medication recommendations as described above. In addition, please stop all cdts-adl-pwbvagc medications including aspirin, ibuprofen (Advil, Motrin), naproxen [...] Cole MD Location Other Other Location Name [facility] Procedure Date 12/30/2024 F: attn: Julisa Ramirez Direct dial: [phone] Eduardo Santiago is a 79 y.o. old [...] Past Medical History: Diagnosis Date Breast cancer ([facility]) Chronic constipation Closed displaced fracture of lesser trochanter of right femur ([facility]) 08/27/2019 Added automatically from request for surgery [id number] Essential hypertension ([facility]) 07/09/2011 Malignant neoplasm of breast (female), unspecified site ([facility]) 04/30/2013 Sliding hiatal hernia 07/09/2017 Past Surgical [...] Preop examination Z01.818 ECG 12 Lead (Clinical Pipe Setter to perform) CANCELED: Complete Blood Count-No Diff CANCELED: Basic Metabolic Panel 2. Dilated cardiomyopathy (HRC) I42.0 ECG 12 Lead (Clinical Pipe Setter to perform) 3. Essential hypertension (HRC) I10 4. Hypercholesterolemia E78.00 5. LBBB (left bundle branch block) I44.7 6. H/O bilateral mastectomy Z90.13 7. 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 Megan Siddiqui, who cleared her for [...] an echo before surgery. Check out the [employer] savings card. losartan (COZAAR) 25 MG tablet [[id number]] - Do not take on the morning of procedure. furosemide (LASIX) 20 MG tablet [[id number]] - Do not take on the morning of procedure. Follow your individualized medication recommendations as described above. In addition, please stop all jyad-add-krnesex medications including aspirin, ibuprofen (Advil, Motrin), naproxen [...] 12/15/2024 11:30 AM CDT Appointment Dania Aguilar [address] [address] [place] [address] [place] [address] Zoe Auguste APRN, APPLIANCE REPAIRER [address] [place] [id number] 12/17/2024 9:15 AM CDT Appointment Dania Nunez [facility]- Plastic Surgery [address] [facility] 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, Qualitative Lab Routine Polycythemia Expected: 12/02/2024, Expires: 03/02/2025 documented as of this encounter Procedures Procedure Name Priority Date/Time Associated Diagnosis Comments ECG 12 LEAD OUTPATIENT Routine 12/02/2024 2:17 PM CDT Preop examination Dilated cardiomyopathy (HRC) documented in this encounter Results * ECG 12 Lead (Clinical Pipe Setter to perform) (12/02/2024 2:17 PM CDT) Ventricular Rate 65 BPM MUSE GHP Atrial Rate 65 BPM MUSE GHP P-R Interval 178 ms MUSE GHP QRS Duration 166 ms MUSE GHP QT 502 ms MUSE GHP QTC 522 ms MUSE GHP P Hometown 67 degrees MUSE GHP R [place]ometown -30 degrees MUSE GHP T [place]ometown 137 degrees MUSE GHP 12/02/2024 2:17 PM [...] (9005) on 12/02/2024 2:53:43 PM Sophie Juarez CODE OFFICIAL, APPLIANCE REPAIRER PN ECG ORDERABLES F inal Result [facility] [address] [place] [address] documented in this encounter Visit Diagnoses Diagnosis Preop examination- Primary Preoperative examination, unspecified Dilated cardiomyopathy (HRC) Other primary cardiomyopathies Essential hypertension (HRC) Unspecified essential hypertension Hypercholesterolemia Pure hypercholesterolemia LBBB (left bundle branch block) Other left bundle branch block H/O bilateral mastectomy Acquired absence of breast and nipple Polycythemia Polycythemia vera documented in this encounter Care Teams Store Host Relationship Specialty Start Date End Date Zoe Auguste, CODE OFFICIAL, APPLIANCE REPAIRER [address] [address] PCP - General 05/05/13 documented as of this encounter
--- OUTSIDE RECORDS SUMMARY | 2024-12-07 23:10 | XMS_ITS ---
Author Organization [facility] Address [address] [address] Support Name Relationship Address Phone Jae Sales Emergency Contact [address] [place] [address] Declined 08/30 Emergency Contact Unknown Unavaila ble Care Team Providers Care Property Management Supervisor Name Role Phone Zoe Auguste APRN, CANCER REGISTRY COORDINATOR Primary Care Provider Active Problems Problem Noted [...] (08/27/2019): Added automatically from request for surgery [id number] Leg swelling 10/06/2013 08/26/2016 Encounter for antineoplastic chemotherapy 06/03/2013 08/26/2016 Malignant neoplasm of female breast 04/30/2013 01/10/2021 Overview (04/02/2017): Malignant neoplasm of breast (female), unspecified site (HRC) Hemorrhoid 11/18/2012 08/26/2016 Chronic systolic heart failure 10/01/2012 12/15/2018 Essential hypertension 07/09/201108/26 Dyspnea 05/18/2011 08/26/2016 Chest pain 05/18/2011 08/26/2016 Seasonal allergies 05/18/2011 7
--- OUTSIDE RECORDS SUMMARY | 2024-12-07 23:10 | XMS_ITS | Encounter Summary ---
Author Organization [facility] Address [address] [place] [address] Support Name Relationship Address Phone Jae Sales Emergency Contact [address] [place] [address] Declined 08/30 Emergency Contact Unknown Unavaila ble Care Team Providers Care Learning And Development Intern Name Role Phone Zoe Auguste APRN, CNP Primary Care Provider Reason for Referral * Procedure/Equipment (Routine) - Pending Review Specialty Diagnoses / Procedures Referred By Ever t Referred To Contact Diagnoses Pain of both breasts Presence of breast implant H/O bilateral mastectomy Procedures MR Breast Bilat Implants W/WO IV Cont Zoe Auguste APRN, CNP [address] [place] [address] Phone: tel: fax: Referral ID Status Reason Start Date Expiration Date V isits Requested Visits Authorized [id number] Pending Review 12/07/2024 03/08/2026 1 1 Reason for Visit * Reason Comments Nurse Return Call Request Encounter Details Date Type Department Care Team (Late st Contact Info) Description 12/07/2024 Telephone [facility] [address] [place] [address] Zoe Auguste APRN, CNP [address] [place] [address] Nurse Return Call Request Social History [...] CDT Clinician: Review and advise, Route to [facility], and [facility] Patient/respiratory care practitioner request: New medication Specific Request: Requesting oral [...] 12:32 PM CDT Clinician: Review and advise Patient/respiratory care practitioner request: Input needed: imaging Specific Request: Patient is aware that MRI has been ordered, states she was told by plastic surgery it needed to be US. Patient would like to make sure Zoe would like her to get an MRI and not US. Patient called and wanted to know what Zoe ordered, content writer let patient know it was an [...] had a scan. * Zoe Auguste APRN, SANITARY LANDFILL SUPERVISOR - 12/07/2024 11:56 AM CDT MRI of [...] 12/15/2024 11:30 AM CDT Appointment Dania [place] [address] [address] [address] [place] [phone] Zoe Auguste, SUPERVISOR MILL, SANITARY LANDFILL SUPERVISOR [address] [place] [address] 12/17/2024 9:15 AM CDT Appointment Dania Nunez [facility]- Plastic Surgery [address] [facility]. [place], [place] [address] Galdino Longoria MD [address] [place], [place] [address] 12/21/2024 1:40 PM CDT Appointment Otolaryngology at [facility] [place] [address] [place] [id number] [place] [phone] Rajesh Mendes PA-C [address] [place], [place] [phone] Scheduled Orders Name Type Priority Associated Diagnoses [...] nipple documented in this encounter Care Teams Learning And Development Intern Relationship Specialty Start Date End Date Zoe Auguste, SUPERVISOR MILL, SANITARY LANDFILL SUPERVISOR [address] [place] [address] PCP - General 05/05/13 documented as of this encounter
--- OUTSIDE RECORDS SUMMARY | 2024-12-07 23:10 | XMS_ITS | Clinical Summary ---
Author Organization [facility] Address [address] [address] Support Name Relationship Address Phone Jae Sales Emergency Contact [address] [place] [address] Declined 08/30 Emergency Contact Unknown Unavaila ble Care Team Providers Care Director Medical Writing Name Role Phone Zoe Auguste APRN, MANAGER STATISTICS Primary Care Provider Source Comments You are receiving this document as you are listed as the primary care provider,follow-up provider, or the patient has been referred to you for consultation.This is in compliance with the Medicare and[facility] EHR Incentive Program,which states Providers who transition their patient to another setting of careor provider of care or refers their patient to another provider of care shouldprovide summary care record for each transition of care or referral. [facility] Allerg[facility] Active Allergy Reactions Criticality Noted Date [...] (08/27/2019): Added automatically from request for surgery [id number] Leg swelling 10/06/2013 08/26/2016 Encounter for antineoplastic chemotherapy 06/03/2013 08/26/2016 Malignant neoplasm of female breast 04/30/2013 01/10/2021 Overview (04/02/2017): Malignant neoplasm of breast (female), unspecified site (HRC) Hemorrhoid 11/18/2012 08/26/2016 Chronic systolic heart failure 10/01/2012 12/15/2018 Essential hypertension 07/09/201108/26 Dyspnea 05/18/2011 08/26/2016 Chest pain 05/18/2011 08/26/2016 Seasonal allergies 05/18/2011 7 Encounters Date Type Department Care Team Description 12/07/2024 Telephone [facility] [address] [place] [address] Zoe Auguste APRN, CNP Nurse Return Call Request 12/02/2024 1:30 PM CDT Pre-Op Visit [facility] [address] [place] [address] Sophie Juarez APRN, CNP Preop examination (Primary Dx); Dilated cardiomyopathy (HRC); Essential hypertension (HRC); Hypercholesterolemia; LBBB (left bundle branch block); H/O bilateral mastectomy; Polycythemia 12/02/2024 9:00 AM CDT Phone Visit [facility] [address] [place] [address] Zoe Auguste APRN, JESSICA Chronic constipation (Primary Dx); Elevated hemoglobin (HRC); Epigastric pain; Sliding hiatal hernia; Breast pain 11/28/2024 Results Follow-Up [facility] [address] [place] [address] Zoe Auguste APRN, CNP 11/25/2024 1:00 PM CDT Lab Visit [facility] [address] [place] [phone] Elevated hemoglobin (HRC) 11/10/2024 Results Follow-Up [facility] [address] [place] [address] Sophie Juarez APRN, CNP 11/09/2024 10:20 AM CDT Ancillary Procedure [facility] Scan [address] [place] [address] Zoe Auguste APRN, MANAGER STATISTICS Epigastric pain; LLQ abdominal pain; RLQ abdominal pain 11/09/2024 E-Visit [facility] [address] [place] [address] Zoe Auguste APRN, MANAGER STATISTICS 11/09/2024 Telephone [facility] [address] [place] [address] [phone] Zoe Auguste APRN, JESSICA Test Results (CT abdomen and pelvis/) 11/05/2024 8:40 AM CDT Lab Visit [facility] [address] [place] [address] Epigastric pain; Screening for diabetes mellitus; Essential hypertension (HRC); Chronic constipation; Peripheral polyneuropathy; Prediabetes 11/05/2024 8:00 AM CDT Office Visit [facility] [address] [place] [address] Zoe Auguste APRN, CNP Epigastric pain (Primary Dx); LLQ abdominal pain; RLQ abdominal pain; Essential hypertension (HRC); Chronic constipation; Peripheral polyneuropathy; Prediabetes; Screening for diabetes mellitus 11/05/2024 Telephone [facility] [address] [place] [address] Zoe Auguste APRN, CNP Plan of Care [...] CDT Respiratory Rate 14 10/08/2022 2:15 PM REMOTE COMPUTER TERMINAL OPERATOR Oxygen Saturation 91% 10/08/2022 2:15 PM REMOTE COMPUTER TERMINAL OPERATOR Inhaled Oxygen Concentration - - Weight 94.9 kg (209 lb 3.2 oz) 12/02/2024 1:24 P M CDT Height 161.3 cm (5' 3.5) 12/02/2024 1:24 PM CDT Body Mass Index 36.48 12/02/2024 1:24 PM CDT Plan of Treatment Upcoming Encounters Date Type Department Care Team (Late st Contact Info) Description 12/15/2024 11:30 AM CDT [facility] [address] [address] [address] [address] [place] [phone] Zoe Auguste APRN, MANAGER STATISTICS [address] [place] [address] 12/17/2024 9:15 AM CDT Appointment [facility]- Plastic Surgery [address] [facility] [place] [address] Galdino Longoria MD [address] [place], [place] [address] 12/21/2024 1:40 PM CDT Appointment Otol[facility]ology at [facility] and Specialty [facility] [address] [address] [address] [place] [phone] Rajesh Mendes PAMalikC [address] [place] [address] Health Maintenance Due Date Last Done Comments [...] this topic Medical Devices Implanted Type Area Nutritional Yeast Supervisor Device Identifier Shelf Expiration Date Model / Serial / Lot Nail Marco Ti St 130d [id number] Rt - [id number] Implanted:Qty: 1 on 08/27/2019 by Kaity Wood MD at [facility] DEVICE Right: HIP [employer] - Trauma 12/09/2027 [id number] S / / [id number] Scr Tfna Fenstd St 100mm - [id number] Implanted:Qty: 1 on 08/27/2019 by Kaity Wood MD at [facility] DEVICE Right: [employer] - Trauma 01/08/2029 [id number] S / / [id number] Scr Lk Ti T25 St 5.0x46 - [id number] Implanted:Qty: 1 on 08/27/2019 by Kaity Wood MD at [facility] DEVICE Right: HIP [employer] - Trauma 07/10/2027 04.005.536 S / / [id number] Procedures Procedure Name Priority Date/Time Associated Diagnosis [...] ENDOSCOPY, COLON, SCREENING/DIAGNOSTIC Routine 10/08/2022 12:48 PM REMOTE COMPUTER TERMINAL OPERATOR Hx of colonic polyp Colon cancer screening DXA BONE DENSITY STUDY 1+ SITS AXIAL Routine 12/13/2013 10:40 AM CDT Menopause from Last 3 Months or Most Recently Relevant to Health Maintenance Results * ECG 12 Lead (Clinical Ivory Polisher to perform) (12/02/2024 2:17 PM CDT) Ventricular Rate 65 BPM MUSE GHP Atrial Rate 65 BPM MUSE GHP P-R Interval 178 ms MUSE GHP QRS Duration 166 ms MUSE GHP QT 502 ms MUSE GHP QTC 522 ms MUSE GHP P Mascot 67 degrees MUSE GHP R Mascot -30 degrees MUSE GHP T Mascot 137 degrees MUSE GHP 12/02/2024 2:17 PM [...] (9005) on 12/02/2024 2:53:43 PM Sophie Juarez SWIMMING PROFESSOR, MANAGER STATISTICS PN ECG ORDERABLES F inal Result [facility] [address] [place] [address] * Erythropoeitin (11/25/2024 12:16 PM CDT) Pathologist [facility] Erythropoietin 12 4 - 27 mU/mL 11/27/2024 4:03 AM CDT Flare Code Comment: INTERPRETIVE INFORMATION: Erythropoietin Normal serum concentrations [...] benefit from therapy with recombinant EPO ([facility] [phone],1989). Performed By: [facility] [employer] [facility] [address] [place] [address] Cupola Hoist Operator: Patrick Locke MD, PhD CLIA Number: [id number] Blood Venipuncture / Unknown 11/25/2024 12:16 PM CDT 11/25/2024 12:16 PM CDT us Zoe Auguste APRN, MANAGER STATISTICS LAB_1 Final R esult Performing Organization Address [facility]/State/[facility] Co de Phone Number Flare Code [address] [place] [address] [place] [address] * CT Abd Pelvis W IV Cont [...] - 125.0 nmol/L 11/09/2024 4:00 PM CDT Flare Code Comment: INTERPRETIVE INFORMATION: Vitamin B6 (Pyridoxal 5-Phosphate) Pyridoxal 5'-phosphate measured in a specimen collected following an 8-hour or overnight fast accurately indicates vitamin B6 nutritional status. Non-fasting specimen concentration reflects recent vitamin intake. This test was developed and its performance characteristics determined by [employer]. It has not been cleared or approved by the [place] Food and Drug Administration. This test was performed in a CLIA certified laboratory and is intended for clinical purposes. Performed By: [employer] [facility] [facility] [address] [place] [address] Cupola Hoist Operator: Patrick Locke MD, PhD CLIA Number: [id number] Blood Venipuncture / Unknown 11/05/2024 8:51 AM CDT 11/05/2024 8:51 AM CDT Zoe Auguste APRN, CNP LAB_1 Final R esult [facility] [address] [place], [place] [address] [place] [address] * Creatinine / GFR (11/05/2024 8:51 AM CDT) Pathologist [facility] Creatinine 0.73 0.55 - 1.02 mg/dL 11/05/2024 9:24 AM [facility] GFR, Estimated >60 >60 mL/min/1.7 3m2 11/05/2024 9:24 AM [facility] Blood Venipuncture / Unknown 11/05/2024 8:51 AM CDT 11/05/2024 8:51 AM CDT us Zoe Auguste APRN, JESSICA LAB_1 Final R esult Performing Organization Address City/[facility]/ZIP Co de Phone Number [facility] [address] [place] [address] * (ABNORMAL) Complete Blood Count-No Diff (11/05/2024 8:51 AM CDT) Pathologist [facility] WBC 6.1 3.5 - 10.5 x10(9)/L 11/05/2024 9:34 AM [facility] RBC 5.16(H) 3.90 - 5.03 x10(12)/L 11/05/2024 9:34 AM [facility] Hemoglobin 17.7(H) 12.0 - 15.5 g/dL 11/05/2024 9:34 AM [facility] HCT 49.1(H) 34.9 - 44.5 % 11/05/2024 9:34 AM [facility] MCV 95.2 80.0 - 100.0 fL 11/05/2024 9:34 AM [facility] MCH 34.3(H) 27.6 - 33.3 pg 11/05/2024 9:34 AM [facility] MCHC 36.0(H) 31.5 - 35.2 g/dL 11/05/2024 9:34 AM [facility] RDW 11.6(L) 11.9 - 15.5 % 11/05/2024 9:34 AM CDT [facility] Platelets 204 150 - 450 x10(9)/L 11/05/2024 9:34 AM [facility] Automated NRBC 0 <=0 /100 WBC 11/05/2024 9:34 AM [facility] Blood Venipuncture / Unknown 11/05/2024 8:51 AM CDT 11/05/2024 8:51 AM CDT Zoe Auguste APRN, MANAGER STATISTICS LAB_1 Final R esult Performing Organization Address City/[facility]/ZIP Co de Phone Number [facility] [address] [place] [address], [facility] * Electrolyte Panel (11/05/2024 8:51 AM CDT) Sodium 138 136 - 145 mmol/L 11/05/2024 9:24 AM T [facility] Potassium 4.4 3.5 - 5.1 mmol/L 11/05/2024 9:24 AM [facility] Chloride 105 98 - 109 mmol/L 11/05/2024 9:24 AM [facility] CO2 22 20 - 29 mmol/L 11/05/2024 9:24 AM [facility] Anion Gap 11 6 - 16 mmol/L 11/05/2024 9:24 AM [facility] Blood Venipuncture / Unknown 11/05/2024 8:51 AM CDT 11/05/2024 8:51 AM CDT Zoe Auguste APRN, MANAGER STATISTICS LAB_1 Final R esult [facility] [address] [place] [address], [facility] * Magnesium (11/05/2024 8:51 AM CDT) Magnesium 1.9 1.6 - 2.6 mg/dL 11/05/2024 9:24 AM T [facility] Blood Venipuncture / Unknown 11/05/2024 8:51 AM CDT 11/05/2024 8:51 AM CDT Zoe Auguste APRN, CNP LAB_1 Final [facility] Performing Organization Address City/[facility]/ZIP Co de Phone Number [facility] [address] [place] [address] * TSH with Free T4 (if TSH Abnormal) (11/05/2024 8:51 AM CDT) Pathologist [facility] TSH, Reflex 3.70 0.30 - 4.50 uIU/mL 11/05/2024 3:05 PM CDT [facility] Blood Venipuncture / Unknown 11/05/2024 8:51 AM CDT 11/05/2024 8:51 AM CDT Zoe Auguste APRN, CNP LAB_1 Final R [facility] Performing Organization Address City/[facility] de Phone Number [facility] [address] [place], [place] [phone] [place] [address] * Hgb A1C (11/05/2024 8:51 AM CDT) Pathologist [facility] Hemoglobin A1C (Rapid) 5.5 <=5.6 % 11/05/2024 10:02 AM CDT [facility] Estimated Average Glucose (Calc) 111 < 117 mg/dL 11/05/2024 10:02 AM CDT [facility] Comment:Estimated average gl ucose (eAG) converts A1c into glucose units (mg/dL) and estimates average glucose over the past approximately 3 months. The eAG reference interval (<117 mg/dL) corresponds to an A1c of <5.7%. Blood Venipuncture / Unknown 11/05/2024 8:51 AM CDT 11/05/2024 8:51 AM CDT Narrative [facility] - 11/05/2024 10:02 AM CDT The test method used for this Hemoglobin A1c result can experience interference from elevated hemoglobin and other hemoglobin variants. In patients with results that do not correlate clinically, contact the lab for further direction. Zoe Auguste APRN, CNP LAB_1 Final R esult Performing Organization Address City/[facility]/ZIP Co de Phone Number [facility] [address] [place] [address] * Folate Only (4Hr Fast Recommended) (11/05/2024 8:51 AM CDT) Folate 10.0 >=7.0 ng/mL 11/05/2024 3:20 PM CDT [facility] Blood Venipuncture / Unknown 11/05/2024 8:51 AM CDT 11/05/2024 8:51 AM CDT us Zoe Auguste APRN, CNP LAB_1 Final R esult Performing Organization Address [facility] Co de Phone Number [facility] [address] * B12 Only (11/05/2024 8:51 AM CDT) Vitamin B12 297 213 - 816 pg/mL 11/05/2024 3:11 PM CDT [facility] Blood Venipuncture / Unknown 11/05/2024 8:51 AM CDT 11/05/2024 8:51 AM CDT us Zoe Auguste APRN, CNP LAB_1 Final R esult Performing Organization Address [facility] Co de Phone Number [facility] [address] * Endoscopy, colon, diagnostic (10/08/2022 12:48 PM REMOTE COMPUTER TERMINAL OPERATOR) Anatomical Region Laterality Modality Other 10/08/2022 12:4 8 PM REMOTE COMPUTER TERMINAL OPERATOR Narrative 10/08/2022 12:48 PM REMOTE COMPUTER TERMINAL OPERATOR Patient Name: Pamela Sales Procedure Date: 10/08/2022 12:48 PM Date of : 1945 Admit Type: Outpatient Age: 77 Gender: Female Note Status: Finalized Attending MD: Morena Reed , Procedure: Colonoscopy Indications: High risk colon cancer surveillance: Personal history of colonic polyps, Last colonoscopy: May 2019 Providers: oMrena Reed, Sophie Saavedra Referring MD: Ann Gilbert MD Medicines: Fentanyl 100 micrograms IV, Midazolam 3 mg IV Complications: No immediate complications. Procedure: After I obtained informed consent, the scope was passed under direct vision. Throughout the procedure, the patient's blood pressure, pulse, and oxygen saturations were monitored continuously. The [id number] was introduced through the anus and advanced [...] from the initial medication administration until the clinical exercise specialist assists with initial maneuvers (biopsy / polypectomy [...] surveillance guidelines Procedure Code(s): --- Professional --- 82029, Colonoscopy, flexible; with removal of tumor(s), polyp(s), or other lesion(s) by snare technique G0500, Moderate sedation services provided by the same physician or other qualified health child care teacher performing a gastrointestinal endoscopic service that sedation supports, requiring the presence of an independent trained observer to assist in the monitoring of the patient's level of consciousness and physiological status; initial 15 minutes of intra-service time; patient age 5 years or older (additional time may be reported with 52113, as appropriate) Diagnosis Code(s): --- Professional --- Z86.010, Personal history of colonic polyps K63.5, Polyp of colon K64.9, Unspecified hemorrhoids K57.30, Diverticulosis of large intestine without perforation or abscess without bleeding CPT copyright 2020 [employer]. All rights reserved. The codes documented in this report are preliminary and upon industrial accountant review may be revised to meet current [...] and oxygen saturations were monitored continuously. The [id number] was introduced through the anus and advanced [...] from the initial medication administration until the clinical exercise specialist assists with initial maneuvers (biopsy / polypectomy [...] surveillance guidelines Procedure Code(s): --- Professional --- 18974, Colonoscopy, flexible; with removal of tumor(s), polyp(s), or other lesion(s) by snare technique G0500, Moderate sedation services provided by the same physician or other qualified health child care teacher performing a gastrointestinal endoscopic service that sedation supports, requiring the presence of an independent trained observer to assist in the monitoring of the patient's level of consciousness and physiological status; initial 15 minutes of intra-service time; patient age 5 years or older (additional time may be reported with 85893, as appropriate) Diagnosis Code(s): --- Professional --- Z86.010, Personal history of colonic polyps K63.5, Polyp of colon K64.9, Unspecified hemorrhoids K57.30, Diverticulosis of large intestine without perforation or abscess without bleeding CPT copyright 2020 [employer]. All rights reserved. The codes documented in this report are preliminary and upon industrial accountant review may be revised to meet current compliance requirements. Morena Reed, 10/08/2022 2:03:26 PM This document has been electronically signed. Number of Addenda: 0 Note Initiated On: 10/08/2022 12:48 PM Endoscopy Report us Makenna Buckner SWIMMING PROFESSOR, MANAGER STATISTICS ET GI ELOINA REYNOLDSDre WEINBERGLUCIO Final Result from Last 3 Months or Most Recently Relevant to Health Maintenance Insurance [facility] MEDICARE ADVANTAGE Advance Directives * Full Code (Latest Code Status on File) Date Activated Date Inactivated Comments 03/13/2020 2:00 PM 03/13/2020 10:33 PM * Full Code Date Activated Date Inactivated Comments 08/27/2019 11:50 PM 09/01/2019 5:15 PM * Full Code Date Activated Date Inactivated Comments 04/07/2017 1:44 PM 04/08/2017 6:49 PM Care Teams Director Medical Writing Relationship Specialty Start Date End Date Zoe Auguste APRN, MANAGER STATISTICS [address] [place] [address] PCP - General 05/05/13
--- OUTSIDE RECORDS SUMMARY | 2024-12-07 23:10 | XMS_ITS | Encounter Summary ---
Author Organization [facility] Address [address] [place] [address] Support Name Relationship Address Phone Jae Sales Emergency Contact [address] [place] [address] Declined 08/30 Emergency Contact Unknown Unavaila ble Care Team Providers Care Club Former Name Role Phone Zoe Auguste APRN, JESSICA Primary Care Provider Encounter Details Date Type Department Care Team (Late Contact Info) Description 11/28/2024 Results Follow-Up [facility] [address] [place], [place] [phone] Zoe Auguste APRN, TENTMAKER [address] [place] [phone] Social History Tobacco Use Types Packs/Day Years [...] 11:30 AM CDT Appointment [facility] Lauren [address] [address] [place] [address] [place] [phone] Zoe Auguste APRN, TENTMAKER [address] [place] [address] 12/17/2024 9:15 AM CDT Appointment [facility]- Plastic Surgery [address] [facility] [place] [address] Galdino Longoria MD [address] [place] [address] 12/21/2024 1:40 PM CDT Appointment Otolaryngology at [facility] and Specialty [facility] [address] [place] [address] [facility] [place] [phone] Rajesh Mendes, PA-C [address] [place] [address] documented as of this encounter Visit Diagnoses Not on filedocumented in this encounter Care Teams Club Former Relationship Specialty Start Date End Date Zoe Auguste APRN, TENTMAKER [address] [place] [address] PCP - General 05/05/13 documented as of this encounter
--- OUTSIDE RECORDS SUMMARY | 2024-12-07 23:10 | XMS_ITS | Clinical Summary ---
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
--- OUTSIDE RECORDS SUMMARY | 2024-12-07 23:10 | XMS_ITS | Encounter Summary ---
Author Organization [facility] Address [address] [place] [address] Support Name Relationship Address Phone Jae Sales Emergency Contact [address] [place] [address] Declined 08/30 Emergency Contact Unknown Unavaila ble Care Team Providers Care Grit Removal Operator Name Role Phone Zoe Auguste APRN, CNP Primary Care Provider Reason for Visit * Procedure/Equipment (Routine) - Closed Specialty Diagnoses / Procedures Referred By Kaiserac t Referred To Contact Diagnoses Epigastric pain LLQ abdominal pain RLQ abdominal pain Procedures CT Abd Pelvis W IV Cont CT Abd Pelvis W/WO IV Cont Zoe Auguste APRN, CNP [address] [place] [address] Phone: tel: fax: Referral ID Status Reason Start Date Expiration Date Visits Re quested Visits Authorized [id number] Closed 11/09/2024 01/09/2025 1 1 Encounter Details Date Type Department Care Team (Latest Contact Info) Description 11/09/2024 10:20 AM CDT Ancillary Procedure [facility] Scan [address] [place], [place] [phone] Zoe Auguste APRN, CNP [address] [place] [address] Epigastric pain; LLQ abdominal pain; RLQ [...] Info) Description 12/15/2024 11:30 AM CDT Appointment [facility] [address] [address] [address] [place] [phone] Zoe Auguste, PLANT CONTROL AIDE, COMPLEX CARE NURSE PRACTITIONER [address] [place], [place] 2201[address] 12/17/2024 9:15 AM CDT Appointment [facility]- [facility] Surgery [address] [facility]. [place], [place] [address] [place] [address] [place] [address] 12/21/2024 1:40 PM CDT Appointment Otolaryngology at [facility] and [facility] [address] [place] [phone] Rajesh Mendes PA-C [address] [place], [place] 237546 documented as of this encounter Procedures Procedure [...] 4. Pelvic floor prolapse. Zoe Auguste APRN, COMPLEX CARE NURSE PRACTITIONER RAD CT Final R esult documented in [...] mL documented in this encounter Care Teams Grit Removal Operator Relationship Specialty Start Date End Date Zoe Auguste, PLANT CONTROL AIDE, COMPLEX CARE NURSE PRACTITIONER [address] [place] [address] PCP - General 05/05/13 documented as of this encounter
--- OUTSIDE RECORDS SUMMARY | 2024-12-07 23:10 | XMS_ITS | Encounter Summary ---
Author Organization [facility] Address [address] [place] [address] Support Name Relationship Address Phone Jae Sales Emergency Contact [address] [place] [address] Declined 08/30 Emergency Contact Unknown Unavaila ble Care Team Providers Care Professional Tutor Name Role Phone Zoe Auguste APRN, JESSICA Primary Care Provider Reason for Visit * Reason Comments Plan of Care Pantoprazole dose Encounter Details Date Type Department Care Team (Late st Contact Info) Description 11/05/2024 Telephone [facility] [address] [place] [address] Zoe Auguste APRN, BIOINFORMATICIST [address] [place] [address] Plan of Care (Pantoprazole dose) [...] Center ([facility]), please warm transfercall [place] extension [phone] to discuss. If no answer at extension, re-route to CSS (Clinical Data Analytics Chief Scientist). Message to Patient/Caller: She can continue to take 40 mg of pantoprazole in the am, an hour prior to eating breakfast. * Linda Nath LPN - 11/08/2024 11:04 AM CDT Left message for patient to call back. Frontline/Patient Service Center ([facility]), please warm transfercall to extension [phone] to discuss. If no answer at extension, re-route to CSS (Clinical Data Analytics Chief Scientist). Message to Patient/Caller: See below * Zoe [...] patient to call back. Frontline/Patient Service Center ([facility]), please warm transfercall to extension [phone] to discuss. If no answer at extension, re-route to CSS (Clinical Data Analytics Chief Scientist). Message to Patient/Caller: Please review msg below [...] 12/15/2024 11:30 AM CDT Appointment Dania Aguilar [address] [address] [place] [address] [place] [address] Zoe uAguste APRN, BIOINFORMATICIST [address] [place] [phone] 12/17/2024 9:15 AM CDT Appointment Dania Nunez [facility]- Plastic Surgery [address] [facility] [place] [address] Galdino Longoria MD 5400 [place] [address] 12/21/2024 1:40 PM CDT Appointment Otolaryngology at [facility] [address] [place] [phone] Rajesh Mendes, PA-C [address]60 [place], [place] [phone] documented as of this encounter Visit Diagnoses Not on filedocumented in this encounter Care Teams Professional Tutor Relationship Specialty Start Date End Date Zoe Auguste APRN, BIOINFORMATICIST [address] [place] [address] PCP - General 05/05/13 documented as of this encounter
--- OUTSIDE RECORDS SUMMARY | 2024-12-07 23:10 | XMS_ITS | Encounter Summary ---
Author Organization [facility] Address [address] [place] [address] Support Name Relationship Address Phone Jae Sales Emergency Contact [address] [place] [address] Declined 08/30 Emergency Contact Unknown Unavaila ble Care Team Providers Care Streetcar Conductor Name Role Phone Zoe Auguste APRN, SERVICE OR WORK DISPATCHER Primary Care Provider Encounter Details Date Type Department Care Team (Late Contact Info) Description 11/10/2024 Results Follow-Up [facility] [address] [place] [address] Sophie Juarez APRN, SERVICE OR WORK DISPATCHER [address] [place] [phone] Social History Tobacco Use Types Packs/Day Years [...] 11:30 AM CDT Appointment Dania Mayra Lauren [address] [address] [address] [place] [phone] Zoe Auguste APRN, SERVICE OR WORK DISPATCHER [address] [place] [address] 12/17/2024 9:15 AM CDT Appointment [facility]- [facility] Surgery [address] [facility] [place] [address] Galdino Longoria MD 5400 [place], [place] [address]176 12/21/2024 1:40 PM CDT Appointment Otolaryngology at [facility]ty [facility] [address] [place] [address] [place] [phone] Rajesh Mendes PA-C [address] [place], [place] [phone] documented as of this encounter Results * Erythropoeitin (11/25/2024 12:16 PM CDT) [facility] Erythropoietin 12 4 - 27 mU/mL 11/27/2024 4:03 AM CDT [facility] Comment: INTERPRETIVE INFORMATION: Erythropoietin Normal serum concentrations [...] may benefit from therapy with recombinant EPO ([facility] [id number],1989). Performed By: [employer] [address] [place] [address] Final Assembly Worker: Patrick Locke MD, PhD CLIA Number: [id number] Blood Venipuncture / Unknown 11/25/2024 12:16 PM CDT 11/25/2024 12:16 PM CDT us Zoe Auguste APRN, CNP LAB_1 Final R esult [employer] [address] [place], [place] [address] [place] [address] documented in this encounter Visit Diagnoses Diagnosis Elevated hemoglobin (HRC)- Primary Other hemoglobinopathies documented in this encounter Care Teams Streetcar Conductor Relationship Specialty Start Date End Date Zoe Auguste APRN, CNP [address] [place] [address] PCP - General 05/05/13 documented as of this encounter
--- OUTSIDE RECORDS SUMMARY | 2024-12-07 23:10 | XMS_ITS | Encounter Summary ---
Author Organization [facility] Address [address] [place] [address] Support Name Relationship Address Phone Jae Sales Emergency Contact [address] [place] [address] Declined 08/30 Emergency Contact Unknown Unavaila ble Care Team Providers Care Air Traffic Control Specialist Center Name Role Phone Zoe Auguste APRN, CNP Primary Care Provider Reason for Visit * Reason Onset Date Comments Phone Visit 12/02/2024 Encounter Details Date Type Department Care Team (Late st Contact Info) Description 12/02/2024 9:00 AM CDT Phone Visit [facility] [address] [place], [place] [phone] Zoe Auguste APRN, CNP [address] [place] [address] Chronic constipation (Primary Dx); Elevated [...] She recalls that the GI clinician at [facility] told her to increase the [...] like directions for this. Additionally, consider contacting [employer] cost savings program if miralax ineffective. Elevated [...] Info) Description 12/15/2024 11:30 AM CDT Appointment [facility] [address] [place] [address] [place] [phone] Zoe Auguste APRN, CNP [address] [place] [address] 12/17/2024 9:15 AM CDT Appointment [facility]- [facility] Surgery [address] [place] [address] Galdino Longoria MD 5400 [place] [address] 12/21/2024 1:40 PM CDT Appointment Otolaryngology at [facility] and Specialty [facility] [address] [address] [address] [place] [phone] Rajesh Mendes PA-C [address] [place] [address] documented as of this encounter Visit Diagnoses Diagnosis Chronic constipation- Primary Unspecified constipation Elevated hemoglobin (HRC) Other hemoglobinopathies Epigastric pain Abdominal pain, epigastric Sliding hiatal hernia Diaphragmatic hernia without mention of obstruction or gangrene Breast pain Mastodynia documented in this encounter Care Teams Air Traffic Control Specialist Center Relationship Specialty Start Date End Date Zoe Auguste, CUSTOMER SUCCESS MANAGER, BEVERAGE SPECIALIST [address] [place] [address] PCP - General 05/05/13 documented as of this encounter
--- OUTSIDE RECORDS SUMMARY | 2024-12-07 23:10 | XMS_ITS | Encounter Summary ---
Author [facility] Address [address], [place] [address] Support Name Relationship Address Phone Jae Sales Emergency Contact [address] [place] [address] Declined 08/30 Emergency Contact Unknown Unavaila ble Care Team Providers Care Rn Field Name Role Phone Zoe Auguste APRN, JESSICA Primary Care Provider Reason for Visit * Reason Comments Test Results CT abdomen and pelvi s Encounter Details Date Type Department Care Team (Late st Contact Info) Description 11/09/2024 Telephone [facility] [address] [place] [address] Zoe Auguste APRN, PAID SEARCH MARKETING ANALYST [address] [place] [address] Test Results (CT abdomen and [...] wrong tube. She said she went to crab picker the [employer] and it was $137 dollars so didn't pick it up due to the expense and said it didn't wk in the past. Has been wking on increasing water and has done Senna 3 times a week. She doesn't use My chart and requested it to be deactivated so to call/ send a letter with results * Zoe Auguste APRN, PAID SEARCH MARKETING ANALYST - 11/09/2024 2:09 PM CDT Please tell [...] Info) Description 12/15/2024 11:30 AM CDT Appointment [facility] [address] Radiology [facility] [address] [place] [phone] Zoe Auguste APRN, PAID SEARCH MARKETING ANALYST [address] [place] [address] 12/17/2024 9:15 AM CDT Appointment [facility]- [facility] Surgery [address] [facility] [place], [place] [address] Galdino Longoria MD 5400 [place] [address] 12/21/2024 1:40 PM CDT Appointment Otol[facility]ology at [facility] [address] [place] [phone] Rajesh Mendes, PA-C [address] [place], [place] [phone] documented as of this encounter Visit Diagnoses Not on filedocumented in this encounter Care Teams Rn Field Relationship Specialty Start Date End Date Zoe Auguste APRN, PAID SEARCH MARKETING ANALYST [address] [place] [address] PCP - General 05/05/13 documented as of this encounter
--- OUTSIDE RECORDS SUMMARY | 2024-12-07 23:10 | XMS_ITS | Encounter Summary ---
Author Organization [facility] Address [address] [place] [address] Support Name Relationship Address Phone Jae Sales Emergency Contact [address] [place] [address] Declined 08/30 Emergency Contact Unknown Unavaila ble Care Team Providers Care Truck Mechanic Apprentice Name Role Phone Zoe Auguste APRN, COUNTY SURVEYOR Primary Care Provider Encounter Details Date Type Department Care Team (Late Contact Info) Description 11/09/2024 E-Visit [facility] [address] [place], [place] [phone] Zoe Auguste APRN, COUNTY SURVEYOR [address] [place] [phone] Social History Tobacco Use Types Packs/Day Years [...] 11:30 AM CDT Appointment Dania Mayra Lauren [address] [address] [place] [address] [place] [address] Zoe Auguste APRN, COUNTY SURVEYOR [address] [place] [address] 12/17/2024 9:15 AM CDT Appointment [facility] Surgery [address] [facility] [place] [address] Galdino Longoria MD 5400 [place] [address] 12/21/2024 1:40 PM CDT Appointment Otol[facility]ology at [facility] [address] [place] [address] [place] [phone] Rajesh Mendes, PA-C 3800 [place] [address] documented as of this encounter Visit Diagnoses Not on filedocumented in this encounter Care Teams Truck Mechanic Apprentice Relationship Specialty Start Date End Date Zoe Auguste APRN, COUNTY SURVEYOR [address] [place] [address] PCP - General 05/05/13 documented as of this encounter
--- OUTSIDE RECORDS SUMMARY | 2024-12-07 23:11 | XMS_ITS | Encounter Summary ---
Author Organization [facility] Address [address] [place] [address] Support Name Relationship Address Phone Jae Sales Emergency Contact [address] [place] [address] Declined 08/30 Emergency Contact Unknown Unavaila ble Care Team Providers Care Environmental Emergencies Planner Name Role Phone Zoe Auguste APRN, CNP Primary Care Provider Encounter Details Date Type Department Care Team (Late Contact Info) Description 11/05/2024 8:40 AM CDT Lab Visit [facility] [address] [place] [address] Epigastric pain; Screening for diabetes [...] 12/15/2024 11:30 AM CDT Appointment Dania [place] [address] [place] [address] [place] [phone] Zoe Auguste APRN, STEELWORKER [address] [place] [address] 12/17/2024 9:15 AM CDT Appointment [facility]- Plastic Surgery [address] [place] [address] Galdino Longoria MD 5400 [place] [address] 12/21/2024 1:40 PM CDT Appointment Otolaryngology at [facility] and Specialty [address] [place] [phone] Rajesh Mendes PA-C 3800 [place] [address] documented as of this encounter Procedures Procedure [...] Fast Recommended) (11/05/2024 8:51 AM CDT) Pathologist [facility] Folate 10.0 >=7.0 ng/mL 11/05/2024 3:20 PM CDT [facility] Blood Venipuncture / Unknown 11/05/2024 8:51 AM CDT 11/05/2024 8:51 AM CDT Zoe Auguste APRN, STEELWORKER LAB_1 Final R esult Performing Organization Address [facility] de Phone Number [facility] [address] [place] [address] * B12 Only (11/05/2024 8:51 AM CDT) Pathologist [facility] Vitamin B12 297 213 - 816 pg/mL 11/05/2024 3:11 PM CDT [facility] Blood Venipuncture / Unknown 11/05/2024 8:51 AM CDT 11/05/2024 8:51 AM CDT Zoe Auguste APRN, STEELWORKER LAB_1 Final R esult Performing Organization Address [facility] Phone Number [facility] [address] [place] [address] * Vitamin B6 (8Hr Fast Recommended) (11/05/2024 8:51 AM CDT) Pathologist [facility] Vitamin B6 73.4 20.0 - 125.0 nmol/L 11/09/2024 4:00 PM CDT [employer] Comment: INTERPRETIVE INFORMATION: Vitamin B6 (Pyridoxal 5-Phosphate) Pyridoxal 5'-phosphate measured in a specimen collected following an 8-hour or overnight fast accurately indicates vitamin B6 nutritional status. Non-fasting specimen concentration reflects recent vitamin intake. This test was developed and its performance characteristics determined by [employer] [facility]. It has not been cleared or approved by the [place] Food and Drug Administration. This test was performed in a CLIA certified laboratory and is intended for clinical purposes. Performed By: [employer] [address] [place] [address] Mechanic Helper: Patrick Locke MD, PhD CLIA Number: [id number] Blood Venipuncture / Unknown 11/05/2024 8:51 AM CDT 11/05/2024 8:51 AM CDT Zoe Auguste APRN, CNP LAB_1 Final R esult Performing Organization Address City/[facility] Co de Phone Number [facility] [employer] [address] [place] [address] [place] [address] * TSH with Free T4 (if TSH Abnormal) (11/05/2024 8:51 AM CDT) TSH, Reflex 3.70 0.30 - 4.50 uIU/mL 11/05/2024 3:05 PM CDT [facility] Blood Venipuncture / Unknown 11/05/2024 8:51 AM CDT 11/05/2024 8:51 AM CDT Zoe Auguste APRN, CNP LAB_1 Final R esult Performing Organization Address [facility] Co de Phone Number [facility] [address] [place], [place] [address] * Magnesium (11/05/2024 8:51 AM CDT) Magnesium 1.9 1.6 - 2.6 mg/dL 11/05/2024 9:24 AM CDT [facility] Blood Venipuncture / Unknown 11/05/2024 8:51 AM CDT 11/05/2024 8:51 AM CDT Zoe Auguste APRN, CNP LAB_1 Final R esult Performing Organization Address City/[facility]/ZIP Co de Phone Number [facility] [address] [place] [address], [facility] * Electrolyte Panel (11/05/2024 8:51 AM CDT) [facility] Sodium 138 136 - 145 mmol/L 11/05/2024 9:24 AM [facility] Potassium 4.4 3.5 - 5.1 mmol/L 11/05/2024 9:24 AM [facility] Chloride 105 98 - 109 mmol/L 11/05/2024 9:24 AM [facility] CO2 22 20 - 29 mmol/L 11/05/2024 9:24 AM T [facility] Anion Gap 11 6 - 16 mmol/L 11/05/2024 9:24 AM [facility] Blood Venipuncture / Unknown 11/05/2024 8:51 AM CDT 11/05/2024 8:51 AM CDT us Zoe Auguste BANKING CONSULTANT, STEELWORKER LAB_1 Final R esult Performing Organization Address City/State/[facility] Co de Phone Number [facility] [address] [place] [address] * (ABNORMAL) Complete Blood Count-No Diff (11/05/2024 8:51 AM CDT) [facility] WBC 6.1 3.5 - 10.5 x10(9)/L 11/05/2024 9:34 AM [facility] RBC 5.16(H) 3.90 - 5.03 x10(12)/L 11/05/2024 9:34 AM [facility] Hemoglobin 17.7(H) 12.0 - 15.5 g/dL 11/05/2024 9:34 AM [facility] HCT 49.1(H) 34.9 - 44.5 % 11/05/2024 9:34 AM [facility] MCV 95.2 80.0 - 100.0 fL 11/05/2024 9:34 AM [facility] MCH 34.3(H) 27.6 - 33.3 pg 11/05/2024 9:34 AM [facility] MCHC 36.0(H) 31.5 - 35.2 g/dL 11/05/2024 9:34 AM [facility] RDW 11.6(L) 11.9 - 15.5 % 11/05/2024 9:34 AM T [facility] Platelets 204 150 - 450 x10(9)/L 11/05/2024 9:34 AM T [facility] Automated NRBC 0 <=0 /100 WBC 11/05/2024 9:34 AM T [facility] Blood Venipuncture / Unknown 11/05/2024 8:51 AM CDT 11/05/2024 8:51 AM CDT oZe Auguste APRN, STEELWORKER LAB_1 Final R esult Performing Organization Address [facility] Co de Phone Number [address] [phone] * Hgb A1C (11/05/2024 8:51 AM CDT) Hemoglobin A1C (Rapid) 5.5 <=5.6 % 11/05/2024 10:02 AM T [facility] Estimated Average Glucose (Calc) 111 < 117 mg/dL 11/05/2024 10:02 AM [facility] Comment:Estimated average gl ucose (eAG) converts A1c into glucose units (mg/dL) and estimates average glucose over the past approximately 3 months. The eAG reference interval (<117 mg/dL) corresponds to an A1c of <5.7%. Blood Venipuncture / Unknown 11/05/2024 8:51 AM CDT 11/05/2024 8:51 AM CDT Narrative [facility] - 11/05/2024 10:02 AM CDT The test method used for this Hemoglobin A1c result can experience interference from elevated hemoglobin and other hemoglobin variants. In patients with results that do not correlate clinically, contact the lab for further direction. Zoe Auguste APRN, JESSICA LAB_1 Final R esult Performing Organization Address [facility]/ZIP Co de Phone Number [address] [address] * Creatinine / GFR (11/05/2024 8:51 AM CDT) Creatinine 0.73 0.55 - 1.02 mg/dL 11/05/2024 9:24 AM CDT [facility] GFR, Estimated >60 >60 mL/min/1.7 3m2 11/05/2024 9:24 AM CDT [facility] Blood Venipuncture / Unknown 11/05/2024 8:51 AM CDT 11/05/2024 8:51 AM CDT us Zoe Auguste APRN, CNP LAB_1 Final R esult [facility] [address] [place] [address], [facility] documented in this encounter Visit Diagnoses Diagnosis Epigastric pain Abdominal pain, epigastric Screening for diabetes mellitus Essential hypertension (HRC) Unspecified essential hypertension Chronic constipation Unspecified constipation Peripheral polyneuropathy Unspecified hereditary and idiopathic peripheral neuropathy Prediabetes Other abnormal glucose documented in this encounter Care Teams Environmental Emergencies Planner Relationship Specialty Start Date End Date Zoe Auguste APRN, JESSICA [address] [place] [phone] PCP - General 05/05/13 documented as of this encounter
--- OUTSIDE RECORDS SUMMARY | 2024-12-07 23:11 | XMS_ITS | Encounter Summary ---
[facility] Address [address], [place] [address] Support Name Relationship Address Phone Jae Sales Emergency Contact [address] [place] [address] Declined 08/30 Emergency Contact Unknown Unavaila ble Care Team Providers Care Mental Health Counselor Name Role Phone Zoe Auguste APRN, CNP Primary Care Provider Reason for Visit * Reason Comments Follow-up Stomach pain- Was se en at [facility] on 06/10/25 for epigastric pain. On Pantoprazole and added Famotidine. Isn't felling better and no new symptoms, still having pain on her right side and higher middle area of stomach Encounter Details Date Type Department Care Team (Late st Contact Info) Description 11/05/2024 8:00 AM CDT Office Visit [facility] [address] [place] [address] Zoe Auguste APRN, CNP [address] [place], [place] [phone] Epigastric pain (Primary Dx); LLQ abdominal pain; [...] call to schedule labs. [facility] Please call your insurance prior to verify coverage. Please let me know if you want to see PT for scar work. documented in this encounter Progress Notes * Zoe Auguste APRN, CNP - 11/05/2024 8:00 AM CDT Chief concern: Chief Complaint Patient presents with Follow-up Stomach pain- Was seen at [facility] on 06/10/25 for epigastric pain. On Pantoprazole and added Famotidine. Isn't felling better and no new symptoms, still having pain on her right side and higher middle area of stomach Other concerns: see HPI Past medical history: Past Medical History: Diagnosis Date Breast cancer ([facility]) Chronic constipation Closed displaced fracture of lesser trochanter of right femur ([facility]) 08/27/2019 Added automatically from request for surgery [id number] Essential hypertension ([facility]) 07/09/2011 Malignant neoplasm of breast (female), unspecified site ([facility]) 04/30/2013 Sliding hiatal hernia 07/09/2017 Medications: Outpatient [...] drawMarky Faria MD 10 mL at 11/30/21 5300 Adverse Drug Reactions: Allergies Allergen Reactions Dionicio [...] Resource Strain: High Risk (08/06/2021) [facility] Financial Resource Strain Difficulty of Paying Living Expenses: Not on file Difficulty of Paying Living Expenses: Not on file Food Insecurity: Not on file Transportation Needs: Not on file Physical Activity: Not on file Stress: Not on file Social Connections: Unknown (08/06/2021) Received from [employer], [facility] Social Connections Frequency of Communication with Friends [...] an EGD with her GI provider in [place] at an outside clinic, and this was [...] call to schedule labs. Please call to [facility] CT scan. Please call your insurance [...] may result . Please contact me via [employer] staff message if you note any errors requiring clarification. documented in this encounter Plan of Treatment Upcoming Encounters Date Type Department Care Team (Late st Contact Info) Description 12/15/2024 11:30 AM CDT [facility] [address] [address] [address] [place] [phone] Zoe Auguste APRN, HEAD PACKAGER [address] [place], [place] [phone] 12/17/2024 9:15 AM CDT Appointment [facility]- Pl[facility] Surgery [address] [facility] [place], [place] [phone] Galdino Longoria MD [address] [place], [place] [phone] 12/21/2024 1:40 PM CDT Appointment Otolaryngology at [facility] Specialty [facility] [address] [address] [address] [place] [phone] Rajesh Mendes PA-C [address] [place], [place] [phone] documented as of this encounter Results * Folate Only (4Hr Fast Recommended) (11/05/2024 8:51 AM CDT) Folate 10.0 >=7.0 ng/mL 11/05/2024 3:20 PM CDT [facility] Blood Venipuncture / Unknown 11/05/2024 8:51 AM CDT 11/05/2024 8:51 AM CDT us Zoe Auguste CHHA, HEAD PACKAGER LAB_1 Final R esult [facility] [address] [place], [place] [address] * B12 Only (11/05/2024 8:51 AM CDT) Pathologist [facility] Vitamin B12 297 213 - 816 pg/mL 11/05/2024 3:11 PM CDT [facility] Blood Venipuncture / Unknown 11/05/2024 8:51 AM CDT 11/05/2024 8:51 AM CDT Zoe Auguste APRN, CNP LAB_1 Final R esult Performing Organization Address City/[facility] Co de Phone Number [facility] [address] [place] [address] * Vitamin B6 (8Hr Fast Recommended) (11/05/2024 8:51 AM CDT) Pathologist [facility] Vitamin B6 73.4 20.0 - 125.0 nmol/L 11/09/2024 4:00 PM CDT [facility] Comment: INTERPRETIVE INFORMATION: Vitamin B6 (Pyridoxal 5-Phosphate) Pyridoxal 5'-phosphate measured in a specimen collected following an 8-hour or overnight fast accurately indicates vitamin B6 nutritional status. Non-fasting specimen concentration reflects recent vitamin intake. This test was developed and its performance characteristics determined by [email or web address]. It has not been cleared or approved by the US Food and Drug Administration. This test was performed in a CLIA certified laboratory and is intended for clinical purposes. Performed By: [email or web address] [address] [place] [address] New Media Strategist: Patrick Locke MD, PhD CLIA Number: [id number] Blood Venipuncture / Unknown 11/05/2024 8:51 AM CDT 11/05/2024 8:51 AM CDT Zoe Auguste APRN, CNP LAB_1 Final R mazinult Performing Organization Address [facility] Co de Phone Number [facility] [address] [place], [place] [id number] [place] [address] * TSH with Free T4 (if TSH Abnormal) (11/05/2024 8:51 AM CDT) Pathologist [facility] TSH, Reflex 3.70 0.30 - 4.50 uIU/mL 11/05/2024 3:05 PM CDT [facility] Blood Venipuncture / Unknown 11/05/2024 8:51 AM CDT 11/05/2024 8:51 AM CDT Zoe Auguste APRN, HEAD PACKAGER LAB_1 Final R esult Performing Organization Address City/[facility]/ZIP Co de Phone Number [facility] [address] [place], [place] [phone] [place] [address] * Magnesium (11/05/2024 8:51 AM CDT) Magnesium 1.9 1.6 - 2.6 mg/dL 11/05/2024 9:24 AM CDT [facility] Blood Venipuncture / Unknown 11/05/2024 8:51 AM CDT 11/05/2024 8:51 AM CDT Zoe Auguste APRN, HEAD PACKAGER LAB_1 Final R esult Performing Organization Address City/[facility]/ZIP Co de Phone Number [facility] [address] [place] [address] [[email or web address]] * Electrolyte Panel (11/05/2024 8:51 AM CDT) Sodium 138 136 - 145 mmol/L 11/05/2024 9:24 AM T [facility] Potassium 4.4 3.5 - 5.1 mmol/L 11/05/2024 9:24 AM T [facility] Chloride 105 98 - 109 mmol/L 11/05/2024 9:24 AM CDT [facility] CO2 22 20 - 29 mmol/L 11/05/2024 9:24 AM T [facility] Anion Gap 11 6 - 16 mmol/L 11/05/2024 9:24 AM T [facility] Blood Venipuncture / Unknown 11/05/2024 8:51 AM CDT 11/05/2024 8:51 AM CDT Zoe Auguste APRN, HEAD PACKAGER LAB_1 Final R esult Performing Organization Address City/[facility]/ZIP Co de Phone Number [facility] [address] [place] [address], [facility] * (ABNORMAL) Complete Blood Count-No Diff (11/05/2024 8:51 AM CDT) [facility] WBC 6.1 3.5 - 10.5 x10(9)/L 11/05/2024 9:34 AM CDT [facility] RBC 5.16(H) 3.90 - 5.03 x10(12)/L 11/05/2024 9:34 AM T [facility] Hemoglobin 17.7(H) 12.0 - 15.5 g/dL 11/05/2024 9:34 AM [facility] HCT 49.1(H) 34.9 - 44.5 % 11/05/2024 9:34 AM [facility] MCV 95.2 80.0 - 100.0 fL 11/05/2024 9:34 AM [facility] MCH 34.3(H) 27.6 - 33.3 pg 11/05/2024 9:34 AM [facility] MCHC 36.0(H) 31.5 - 35.2 g/dL 11/05/2024 9:34 AM [facility] RDW 11.6(L) 11.9 - 15.5 % 11/05/2024 9:34 AM [facility] Platelets 204 150 - 450 x10(9)/L 11/05/2024 9:34 AM [facility] Automated NRBC 0 <=0 /100 WBC 11/05/2024 9:34 AM [facility] Blood Venipuncture / Unknown 11/05/2024 8:51 AM CDT 11/05/2024 8:51 AM CDT us Zoe Auguste APRN, HEAD PACKAGER LAB_1 Final R Kylin Networkult [facility] [address] [place] [address], [facility] * Hgb A1C (11/05/2024 8:51 AM CDT) [facility] Hemoglobin A1C (Rapid) 5.5 <=5.6 % 11/05/2024 10:02 AM CDT [facility] Estimated Average Glucose (Calc) 111 < 117 mg/dL 11/05/2024 10:02 AM T [facility] Comment:Estimated average gl ucose (eAG) converts A1c into glucose units (mg/dL) and estimates average glucose over the past approximately 3 months. The eAG reference interval (<117 mg/dL) corresponds to an A1c of <5.7%. Blood Venipuncture / Unknown 11/05/2024 8:51 AM CDT 11/05/2024 8:51 AM CDT Narrative [facility] - 11/05/2024 10:02 AM CDT The test method used for this Hemoglobin A1c result can experience interference from elevated hemoglobin and other hemoglobin variants. In patients with results that do not correlate clinically, contact the lab for further direction. Zoe Auguste APRN, CNP LAB_1 Final R HLR Properties Performing Organization Address [facility] de Phone Number [address] * Creatinine / GFR (11/05/2024 8:51 AM CDT) [facility] Creatinine 0.73 0.55 - 1.02 mg/dL 11/05/2024 9:24 AM T [facility] GFR, Estimated >60 >60 mL/min/1.7 3m2 11/05/2024 9:24 AM T [facility] Blood Venipuncture / Unknown 11/05/2024 8:51 AM CDT 11/05/2024 8:51 AM CDT Zoe Auguste APRN, CNP LAB_1 Final R [facility] [employer] Performing Organization Address [facility] Co de Phone Number [address] documented in this encounter Visit Diagnoses Diagnosis Epigastric pain- Primary Abdominal pain, epigastric LLQ abdominal pain Abdominal pain, left lower quadrant RLQ abdominal pain Abdominal pain, right lower quadrant Essential hypertension ([facility]) Unspecified essential hypertension Chronic constipation Unspecified constipation Peripheral polyneuropathy Unspecified hereditary and idiopathic peripheral neuropathy Prediabetes Other abnormal glucose Screening for diabetes mellitus documented in this encounter Care Teams Mental Health Counselor Relationship Specialty Start Date End Date Zoe Auguste, CHHA, HEAD PACKAGER [address] [place] [address] PCP - General 05/05/13 documented as of this encounter
[2024-12-07 23:22] VITALS: BP 129/60; PULSE 64; RESP 17; O2SAT 95
[2024-12-08] VITALS (12 sets, daily range): BP systolic 132–164; BP diastolic 58–84; PULSE 52–68; RESP 17–20; TEMP 36.2–36.8; O2SAT 95–97; BMI 36.6
[2024-12-08] MEDS: ASPIRIN 81 MG TAB.CHEW 324 MG PO ×2 (00:02→09:03)
[2024-12-08] MEDS: CLOPIDOGREL 300 MG TABLET PO (00:02)
--- NOTE | 2024-12-08 00:11 | W.PM.TELEH&P ---
Telehealth- H&P: HPI History of Present Illness Date Seen: 12/08/24 Chief complaint: Numbness in lips Narrative: Pamela Sales is seen as an Interactive Telehealth visit. Pamela Sales is a 79 year old femaleWith history of polycythemia, hypertension, chronic heart failure with reduced ejection fraction of approximately 40% on latest echo, who presents with numbness in her lips, and eventually developing numbness and tingling in her left arm. Patient has had stuttering symptoms, approximately 5 minutes each time without resolution, and it migrated into her cheek so she decided to come and get evaluated. In the emergency department, patient developed left arm numbness and tingling that lasted for about [address] scan of the head which is negative. CTA of the head however shows severe stenosis in right P3 segment of the posterior cerebral artery. The patient is currently asymptomatic. Stroke neurology was consulted in the emergency department, recommended admission for stroke workup and loading of dual antiplatelet therapy. Review of Systems Status of ROS: Reports: 10 or more systems reviewed and unremarkable except as noted in History and below PFSH PFS Medical History Hx of uterine prolapse ?Z87.42 - Personal history of other diseases of the female genital tract (ICD-10) Surgical History History of hysterectomy ?Z90.710 - Acquired absence of both cervix and uterus (ICD-10) Hx of bilateral mastectomy ?Z90.13 - Acquired absence of bilateral breasts and nipples (ICD-10) History of cholecystectomy ?Z90.49 - Acquired absence of other specified parts of digestive tract (ICD-10) History of appendectomy ?Z90.49 - Acquired absence of other specified parts of digestive tract (ICD-10) Family History Father Cancer Mother DM (diabetes mellitus), type 2 CHF (congestive heart failure) Sister Seizures Social History Highest level of school completed/degree received: high school graduate Smoking Status: Never smoker How often do you have a drink containing alcohol: never AUDIT-C Alcohol total score: 0 Non-prescribed substance use: denies use Caffeine: Yes (coffee) service: No Meds Home Medications and Allergies Home Medications ?Medication ?Instructions ?Recorded ?Confirmed ?Type lorazepam 0.5 mg tablet 0.5 mg PO Q12H PRN 04/04/22 04/02/24 History losartan 25 mg tablet 25 mg PO DAILY 04/04/22 04/02/24 History carvedilol 6.25 mg tablet See Rx Instructions PO .ud 04/02/24 04/02/24 History pantoprazole 40 mg tablet,delayed 40 mg PO QDAY 04/02/24 04/02/24 History release Allergies Allergy/AdvReac Type Severity Reaction Status Date / Time No Known Drug Allergies Allergy Verified 12/07/24 23:07 Exam Narrative Exam Narrative: Physical Exam GENERAL: ?vital signs reviewed, well developed and nourished, in no distress HEENT: pupils are equal round and reactive to light, extraocular movements are grossly within normal limits and oral mucosa is moist. NECK: Supple without lymphadenopathy or thyromegaly according to nursing staff examination observation HEART: Regular rate and rhythm without any rubs, murmurs, or gallops. LUNGS: Clear to auscultation bilaterally with good air movement throughout ABDOMEN: Observation from nurse assisted exam, abdomen appears soft, nontender, and nondistended with Positive bowel sounds noted. EXTREMITIES: Strength and sensation is observed to be grossly within normal limits in the upper and lower extremities.? No focal strength deficit is observed. SKIN:? Observed warm and dry with color normal Const Vital Signs, click to edit/add: Vital Signs - 24 hr 12/07/24 22:28 12/07/24 22:36 12/07/24 22:37 Temperature 97.9 F 98.2 F Pulse Rate 65 Pulse Rate [Pulse Oximeter] 63 Respiratory Rate 18 16 Blood Pressure 137/72 Blood Pressure [Right Upper Arm] 156/89 H Pulse Oximetry 95 93 95 Oxygen Delivery Method Room Air 12/07/24 23:02 12/07/24 23:22 Temperature Pulse Rate 64 64 Pulse Rate [Pulse Oximeter] Respiratory Rate 12 17 Blood Pressure 140/62 H 129/60 Blood Pressure [Right Upper Arm] Pulse Oximetry 95 95 Oxygen Delivery Method Hospitalist - H&P: Result Labs Labs: Reviewed imaging reports, EKG Assessment and Plan Assessment and plan (1) TIA (transient ischemic attack): Status: Acute Assessment and Plan: Appreciate stroke neurology input. Will load with dual antiplatelet therapy. Fortunately patient is asymptomatic now. Will complete stroke workup with MRI brain, echocardiogram. Telemetry monitoring overnight, possible Holter monitor on discharge. Permissive hypertension. Will check hemoglobin A1c, lipid panel. (2) Chronic heart failure with reduced ejection fraction (HFrEF, <= 40%): Status: Acute Assessment and Plan: Stable. Continue home medications, monitor and telemetry. (3) Polycythemia: Status: Acute Assessment and Plan: Hemoglobin 17.7. (4) Dilated cardiomyopathy: Status: Acute (5) Essential hypertension: Problem comment: Dx Circa 2005 Status: Acute Assessment and Plan: Permissive hypertension for the time being. Telehealth: Statement Statement Telehealth Visit: Today's History and Physical is provided via interactive telehealth by Gurjit Chua MD.? Patient is located at [facility].? Provider is located at [facility].? Nursing staff assisted with the patient's exam. The visit being done today meets criteria for a telehealth visit and the patient or patient?s parent/guardian is aware the visit is a telehealth visit. Camera Start Time: 00:40 Camera End Time: 01:00
[2024-12-08 00:17] LABS: Basophils Absolute Auto 0.03 K/uL (0.00-0.30); Basophils Percent Auto 0.5 % (0.0-3.0); Chloride* 103 mmol/L (96-114); Eosinophils Absolute Auto 0.21 K/uL (0.00-0.50); Eosinophils Percent Auto 3.7 % (0.0-7.0); Hemoglobin* 15.9 gm/dL (12.0-16.0); Immature Granulocytes Abs Auto 0.05 K/uL (0.00-0.30); Immature Granulocytes Pct Auto 0.9 %; Lymphocytes Absolute Auto 2.01 K/uL (0.90-2.90); Mean Corpuscular HGB Conc 35 gm/dL (32-36); Mean Corpuscular Hemoglobin 33 pg (26-34); Mean Corpuscular Volume 97 fL (80-100); Monocytes Percent Auto 9.9 % (0.0-11.0); Neutrophils Absolute Auto 2.88 K/uL (1.7-7.0); Platelet Count* 210 K/uL (140-440); Potassium* 4.3 mmol/L (3.6-5.1); RDW Coefficient of Variation % 11.8 % (11.5-15.5); Red Blood Count 4.76 m/uL (4.00-5.20); Sodium* 137 mmol/L (135-149); White Blood Count* 5.75 K/uL (4.50-11.00)
[2024-12-08 00:20] LABS: Anion Gap 11 mEq/L (7-15); Blood Urea Nitrogen* 17 mg/dL (7-30); Carbon Dioxide* 23 mmol/L (20-32); Creatinine* 0.9 mg/dL (0.5-1.5); Estimated Glomerular Filt Rate 64 ml/min
[2024-12-08 00:21] LABS: Calcium* 9.2 mg/dL (8.4-10.6); Glucose* 103 mg/dL (60-115)
[2024-12-08 00:22] LABS: Slide Review Reflex No
[2024-12-08 00:24] LABS: INR 0.91 (0.91-1.10)
[2024-12-08 00:33] LABS: Troponin I* 0.02 ng/mL (0.01-0.04)
--- NOTE | 2024-12-08 00:34 | CRLHL7_ITS ---
For Patients: As a result of the Century Cures Act, medical imaging exams and procedure reports are released immediately into your electronic medical record. You may view this report before your referring provider. If you have questions, please contact your health care provider. Indication: TIA Technique: Multiplanar, multisequence MR images of the brain were obtained without the administration of IV contrast. Comparison: CT head December 07, 2024 Findings: On midline sagittal T1 images there are preserved flow voids within the sagittal sinuses. The corpus callosum is preserved in signal and contour. The pituitary gland is unremarkable without evidence of remodeling of the sella turcica. There is no significant cerebellar tonsillar ectopia. On diffusion-weighted sequences, there is demonstration of a punctate focus of restricted diffusion in the right thalamus. No evidence of territorial diffusion restriction. Additional restriction within xanthogranulomas of the choroid plexus or appreciated. There is global cortical atrophy with sulcal widening and ex vacuo dilatation of the lateral ventricles. There is moderate to severe confluent T2/FLAIR hyperintensity within the subcortical and periventricular white matter. Old lacunar changes of the right basal ganglia or appreciated. Minimal evolving cytotoxic edema is appreciated within the right thalamus. The flow voids at the skull base are unremarkable. The orbits and their contents are within normal limits. There is minimal mucosal thickening in the paranasal sinuses. The mastoid air cells are clear. Impression: 1. Demonstration of a small evolving subacute infarct of the right thalamus. No evidence of large territorial infarct. 2. Extensive chronic small vessel disease change within the white matter as well as old lacunar changes of the right basal ganglia and centrum semiovale. Findings were discussed with Dariana MARCIAL at 12:15 p.m. December 08, 2024 Dictated by Barrie Silva MD @ 12/08/2024 12:15:19 PM (Electronically Signed)
[2024-12-08 01:03] LABS: Cholesterol* 203 mg/dL (90-199); HDL Cholesterol* 38 mg/dL (>=50); LDL Cholesterol Calculated 124 mg/dL (<100); Triglycerides* 207 mg/dL (40-149)
[2024-12-08 01:06] LABS: Hemoglobin A1C* 5.6 % (0-5.6)
[2024-12-08] MEDS: SENNOSIDES/DOCUSATE TABLET 1 TAB PO ×2 (01:39→09:03)
--- NOTE | 2024-12-08 06:59 | PC.NURSE ---
End of shift report: VS WNL. Afebrile. Denies pain. Denies nausea. On RA. Neuros remain intact. Ambulates SBA with cane in room. Call light within reach.?
[2024-12-08] MEDS: OMEPRAZOLE 20 MG CAPSULE DR 40 MG PO (08:59)
--- NOTE | 2024-12-08 08:59 | REH.SLP ---
Speech orders received, chart reviewed and met briefly with patient. Patient is tolerating a Regular diet with thin liquids and patient was observed with consecutive swallows of thin liquids via straw with no overt s/sx of aspiration. No change in speech and oral motor screen was WNL. No further speech needs identified. Discussed with RN. Will complete order.
[2024-12-08] MEDS: CLOPIDOGREL 75 MG TABLET PO (09:03)
[2024-12-08] MEDS: SODIUM CHLORIDE 0.9 % (FLUSH) 10 ML SYRINGE 5 ML IVF (09:04)
[2024-12-08] MEDS: LORazepam 0.5 MG TABLET PO (10:51)
--- NOTE | 2024-12-08 11:35 | P.DS_ITS ---
DS: Providers Provider Date Seen: 12/09/24 Date of admission: 12/08/24 00:23 Primary care physician: Not a Local Provider Admitting Clinician: Gurjit Chua MD Consults: 12/08/24 00:23 Consult to Physical Therapy [CONS] Routine Comment: Reason(s) for PT Consult:: Evaluate and Treat Any Restrictions?:: No Restrictions Consult to Speech Therapy [CONS] Routine Comment: Reason(s) for Speech Consult:: Speech/Swallowing Eval 12/08/24 00:27 Consult to Occupational Therapy [CONS] Routine Comment: Reason(s) for OT Consult:: Evaluate and Treat Any Restrictions?:: No Restrictions Attending Physician on discharge: Gurjit Chua MD DS: Diagnosis Discharge Diagnosis (1) CVA (cerebral vascular accident): Status: Acute Problem details: Paresthesias L side and stuttering, fully resolved within minutes (reported as 15 minutes at the most) CT head without acute intracranial abnormalities CTA head/neck shows no large vessel occlusion, no significant carotid or vertebral artery stenosis or dissection MRI brain shows acute evolving lacunar infarct right thalamus with evidence of old lacunar changes Started on Plavix 300 mg in the ED followed by 75 mg daily x 21 days, aspirin 324 mg daily Admitted overnight for observation, vital signs, telemetry. Lipids (as below) and A1c ordered - (5.6). Recurrence of lip numbness and left wrist pins and needles sensation recurred around 9:45 a.m., resolving in less than 15 minutes again Neurology reassessed, continue plavix and aspirin, encourage statin. Outpatient follow up. (2) Paresthesia: Status: Acute Problem details: Lower lip tingling, left hand/wrist pins and needles sensation - recurring morning of admission, again resolving in less than 15 minutes (3) Chronic heart failure with reduced ejection fraction (HFrEF, <= 40%): Status: Chronic Problem details: Echo 12/08/24 Final Impressions: 1. Normal LV size, mildly increased wall thickness, moderately severely reduced global systolic function with an estimated EF of 30 - 35%. 2. Abnormal septal motion consistent with left bundle branch block. 3. Mildly enlarged left atrium. 4. The aortic valve is calcified, no stenosis and mild regurgitation. Previous echocardiogram 05/25/2024: Echocardiogram SUMMARY: 1. Left ventricular chamber size is normal. Mild to moderate concentric wall thickening consistent with left ventricular hypertrophy is present. Abnormal septal motion consistent with left bundle branch block. Mild to moderate diffuse hypokinesis is present. The inferior and inferolateral rao have the worst contractility. Left ventricular ejection fraction is visually estimated at 40%. Left ventricular Doppler filling pattern consistent with Grade II (moderate) diastolic dysfunction. 2. Normal right ventricle size and normal global function. 3. There is no significant valve pathology. 4. The following segments of the aorta are normal in size: sinuses of Valsalva and ascending aorta. 5. Dilation of the inferior vena cava (> 2.1 cm) with abnormal respiratory variation in diameter. Estimated right atrial pressure is >15 mmHg. 6. There is no pericardial effusion. 7. Compared to the previous study done on 08/20/22, the left ventricular systolic function is about the same but the right atrial pressure has increased. Reduced EF. Reporting no new symptomatology. Not very active and reports no decrease in tolerability Will need outpatient follow up with Dr. Megan Siddiqui, Cardiology (4) Dilated cardiomyopathy: Status: Chronic Problem details: Followed by Dr. Siddiqui, cardiology. Needs outpatient follow-up (5) Essential hypertension: Status: Chronic Problem details: Dx Circa 2004 Home medications include losartan, carvedilol (6) Hyperlipidemia: Status: Acute Problem details: Lipids 12/08/2024: Triglycerides 207, cholesterol 203, LDL 124, HDL 38 Discussed initiation of high-dose statin, patient declines, would like to discuss with her . Will follow-up with PCP for medication initiation and options (7) Acid reflux: Status: Chronic Problem details: Home medications include pantoprazole DS: Summary Hospital Course Hospital Course: Course of care and details as noted above. Remainder of chronic medical comorbidities were monitored and managed with home medications. Status at Discharge Functional status at discharge: independent ambulation Overall status at discharge: patient is back to baseline Time Spent with Patient Time attestation: Total time spent providing and/or coordinating discharge services: Time spent: Greater than 30 minutes Exam Narrative: Exam Narrative: PHYSICAL EXAM General: Pleasant, conversant, NAD Cardiovascular: RRR Pulmonary: No dyspnea Neurological: Alert, answering questions appropriately, no facial droop, no slurring, 5/5 strength equal bilaterally UE/LE, no focal findings Skin: Warm, dry. Const: Vital Signs, click to edit/add: Vital Signs - 24 hr 12/07/24 22:28 12/07/24 22:36 12/07/24 22:37 Temperature 97.9 F 98.2 F Pulse Rate 65 Pulse Rate [Pulse Oximeter] 63 Respiratory Rate 18 16 Blood Pressure 137/72 Blood Pressure [Ri ght Arm] Blood Pressure [Ri ght Upper Arm] 156/89 H Pulse Oximetry 95 93 95 Oxygen Delivery Me thod Room Air 12/07/24 23:02 12/07/24 23:22 12/08/24 00:25 Temperature 98.2 F Pulse Rate 64 64 Pulse Rate [Pulse Oximeter] 68 Respiratory Rate 12 17 17 Blood Pressure 140/62 H 129/60 Blood Pressure [Ri ght Arm] Blood Pressure [Ri ght Upper Arm] 132/74 Pulse Oximetry 95 95 95 Oxygen Delivery Me thod Room Air 12/08/24 00:26 12/08/24 00:28 12/08/24 01:00 Temperature 98.2 F 97.2 F L Pulse Rate Pulse Rate [Pulse Oximeter] 68 66 Respiratory Rate 17 20 Blood Pressure Blood Pressure [Ri ght Arm] 164/58 H Blood Pressure [Ri ght Upper Arm] 132/74 Pulse Oximetry 95 Oxygen Delivery Me thod Room Air 12/08/24 01:23 12/08/24 03:15 12/08/24 05:30 Temperature 97.4 F L Pulse Rate 57 L Pulse Rate [Pulse Oximeter] 64 Respiratory Rate 20 18 Blood Pressure Blood Pressure [Ri ght Arm] 138/74 Blood Pressure [Ri ght Upper Arm] Pulse Oximetry 95 97 Oxygen Delivery Me thod Room Air Room Air 12/08/24 05:52 12/08/24 07:14 12/08/24 07:56 Temperature 97.8 F Pulse Rate 52 L Pulse Rate [Pulse Oximeter] 64 64 Respiratory Rate 18 Blood Pressure Blood Pressure [Ri ght Arm] 153/84 H Blood Pressure [Ri ght Upper Arm] Pulse Oximetry 95 Oxygen Delivery Me thod Room Air 12/08/24 07:57 12/08/24 07:57 Temperature Pulse Rate Pulse Rate [Pulse Oximeter] 64 64 Respiratory Rate 18 Blood Pressure Blood Pressure [Ri ght Arm] Blood Pressure [Ri ght Upper Arm] Pulse Oximetry Oxygen Delivery Me thod DS: Data Data Completed and Pending Labs on day of discharge: Labs from last 24 hours 12/08/24 12/07/24 00:01 22:35 WBC 5.75 RBC 4.76 Hgb 15.9 Hct 46.0 MCV 97 MCH 33 MCHC 35 RDW Coeff of Oswaldo 11.8 Plt Count 210 Neut % (Auto) 50.0 Lymph % (Auto) 35.0 Kimble % (Auto) 9.9 Eos % (Auto) 3.7 Baso % (Auto) 0.5 Neut # (Auto) 2.88 Lymph # (Auto) 2.01 Kimble # (Auto) 0.60 Eos # (Auto) 0.21 Baso # (Auto) 0.03 Abs Immat Gran (auto) 0.05 Imm/Tot Granulo (auto) 0.9 INR 0.91 Sodium 137 Potassium 4.3 Chloride 103 Carbon Dioxide 23 Anion Gap 11 BUN 17 Creatinine 0.9 Estimated Creat Clear 36.50 Estimated GFR 64 Glucose 103 Hemoglobin A1c 5.6 Calcium 9.2 Magnesium 2.0 Troponin I 0.02 Triglycerides 207 H Cholesterol 203 H LDL Cholesterol, Calc 124 H HDL Cholesterol 38 L Lab Acknowledgement Test Added Imaging MRI - head: Attestation: I have reviewed the pertinent imaging results. Radiologist's impression: On midline sagittal T1 images there are preserved flow voids within the sagittal sinuses. The corpus callosum is preserved in signal and contour. The pituitary gland is unremarkable without evidence of remodeling of the sella turcica. There is no significant cerebellar tonsillar ectopia. On diffusion-weighted sequences, there is demonstration of a punctate focus of restricted diffusion in the right thalamus. No evidence of territorial diffusion restriction. Additional restriction within xanthogranulomas of the choroid plexus or appreciated. There is global cortical atrophy with sulcal widening and ex vacuo dilatation of the lateral ventricles. There is moderate to severe confluent T2/FLAIR hyperintensity within the subcortical and periventricular white matter. Old lacunar changes of the right basal ganglia or appreciated. Minimal evolving cytotoxic edema is appreciated within the right thalamus. The flow voids at the skull base are unremarkable. The orbits and their contents are within normal limits. There is minimal mucosal thickening in the paranasal sinuses. The mastoid air cells are clear. Impression: 1. Demonstration of a small evolving subacute infarct of the right thalamus. No evidence of large territorial infarct. 2. Extensive chronic small vessel disease change within the white matter as well as old lacunar changes of the right basal ganglia and centrum semiovale. CT scan - head: Attestation: I have reviewed the pertinent imaging results. Radiologist's impression: Brain: No acute hemorrhage. No acute infarct. No significant mass effect or midline shift. No gross evidence of a mass lesion or cerebral edema. Severe chronic microvascular ischemic disease. Mild global parenchymal volume loss. Ventricles: No acute abnormality appreciated. Orbits, sinuses, mastoids: No acute abnormality appreciated. Calvarium and soft tissues: No acute abnormality appreciated. Impression: No acute intracranial abnormality appreciated. CTA head: Attestation: I have reviewed the pertinent imaging results. Radiologist's impression: There is scattered intracranial atherosclerotic disease. There is normal opacification of the intracranial vasculature. There is no large vessel occlusion. No aneurysm is identified. IMPRESSION: No large vessel occlusion. CTA neck: Attestation: I have reviewed the pertinent imaging results. Radiologist's impression: There is scattered atherosclerotic disease involving the major cervical vasculature. There is no significant carotid artery stenosis or dissection. There is no significant vertebral artery stenosis or dissection. The soft tissues of the neck are within normal limits. Advanced degenerative changes are noted in the cervical spine, with severe central canal stenosis in the lower cervical spine. IMPRESSION: No significant carotid or vertebral artery stenosis or dissection. Discharge Plan Discharge Disposition: Home, Self-Care Date of Admission: 12/08/24 00:23 Attending Provider on Discharge: Dariana Alexander Primary Care Provider: Provider,Not a Local Condition: Improved Anticipated Discharge Date/Time: 12/08/24 14:00 Discharge Medications: New clopidogrel 75 mg Tablet 75 mg PO DAILY Qty: 20 0RF aspirin [Children's Aspirin] 81 mg Tablet,Chewable 324 mg PO DAILY Qty: 90 0RF cholecalciferol (vitamin D3) [Vitamin D3] 25 mcg (1,000 unit) capsule 25 mcg PO DAILY Qty: 30 1RF Continued pantoprazole 40 mg tablet,delayed release (DR/EC) 40 mg PO BID carvedilol 6.25 mg tablet 6.25 - 12.5 mg PO BID Rx Instructions: 2 tab am, 1 tabs hs lorazepam 0.5 mg tablet 0.5 mg PO HS PRN losartan 25 mg tablet 25 mg PO DAILY calcium carbonate [Calcium 600] 600 mg calcium (1,500 mg) tablet 600 mg PO BID Discontinued D3 Plus K2 Dots 25 mcg (1,000 unit)-90 mcg tablet,disintegrating 2 tab PO DAILY Discharge Orders: Discharge Order (Routine); Ordered 12/08/24 Ordered By: Ketna Koch Patient Education: Aspirin (By mouth), Clopidogrel (By mouth), Cholecalciferol (By mouth), Ischemic Stroke (GEN), Paresthesia (ED) Additional Instructions: You need a follow up appointment with your PCP in the next 3-5 days You will need a follow up appointment with your Co Founder & Ceo, Dr. Siddiqui, as soon as you are able New medications: Clopriogrel Aspirin It has been recommended you start a statin Vitamin D3 WITHOUT vitamin K - your neurologist recommended that you NOT take vitamin K supplementation (do not take your vitamin D3 with K-dots) Activity Level: Activity as Tolerated Discharge Diet: Heart Healthy (2 gm sodium, low fat) Follow Up Appointments: Lolly Riddle [Other] - 12/10/24 1:45 pm ([facility] for follow-up. Primary doctor was not available.) Provider,Not a Local [Primary Care Provider] - Forms: [employer] Info Instructions
--- NOTE | 2024-12-08 16:00 | PC.NURSE ---
discharge. pt has been pleasant. she is alert x4. PT and OT saw. no pain. she had some left hand numbness and some chest tightness. md is aware. Denies pain. Denies nausea. On RA. Neuros remain intact. Ambulates SBA with cane in room. Call light within reach.? she had echo, MRI, speech today, neurology today went over discharge packet. went over medications, appointment, educations and instructions. she went over and signed personal belonging sheet. she got a w/c ride out.
== END 2024-12-08 15:50 | disposition home or self-care (01) ==
LOC: ED 12-08 00:06 → MEDSURG 12-08 00:25
PROVIDERS: Admitting Provider Internal Medicine; Emergency Provider Family Medicine; Visit Provider Internal Medicine
DX: G45.9 Transient cerebral ischemic attack, unspecified (principal); I11.0 Hypertensive heart disease with heart failure; I50.22 Chronic systolic (congestive) heart failure; I42.0 Dilated cardiomyopathy; D75.1 Secondary polycythemia; R20.2 Paresthesia of skin; E78.5 Hyperlipidemia, unspecified; R20.0 Anesthesia of skin; Z83.3 Family history of diabetes mellitus; Z85.3 Personal history of malignant neoplasm of breast; Z13.29 Encounter for screening for other suspected endocrine disorder; I44.7 Left bundle-branch block, unspecified; G57.83 Other specified mononeuropathies of bilateral lower limbs; E66.9 Obesity, unspecified; Z68.33 Body mass index [BMI] 33.0-33.9, adult; Z79.899 Other long term (current) drug therapy
CPT/HCPCS: 36415; 70450; 70496; 70498; 70551; 80048; 80061; 83036; 83735; 84484; 85025; 85610; 93005; 93306; 94761; 97116; 97161; 97165; 99215; 99285; A9270; G0378; Q9967